=== PATIENT | male | born 1940 | race African-American/Black ===

== ENCOUNTER → 2016-11-16 | Outpatient (CLI) | payer OTHER ==
[~2016-11-16] MED LIST: ALBUAER2 INH; ASPI81TA28 PO; FURO40TA3 PO; LISI-729 PO; LORA10TA51 PO; METO-551 PO; NRV5 PO; POTA-335 PO; SIMV40TA2 PO; SYMIN160 INH; TERA1CAP63 PO; ZNTT/150 PO; [UNRECOGNIZED DRUG - OTHER] PO
--- NOTE | 2016-11-17 06:30 | PAP/PSG TECHNICIAN REPORT ---
[facility] Welding Robot Operator Polysomnogram Report Study name: None Report date: 11/17/2016 Study date: 11/16/2016 Referring Physician: Indy Duckworth M.D. Name: KAROLYN CASTANEDA Interpreting Physician: Alfredo Farley M.D. Date of : 1940 Welding Robot Operator: Javi Quiroz RPSGT. Sex: Male Age: 75 StudyType: PSG Weight: Height: 75 years, Height 5' 6" BMI: Medications: ALBUTEROL 90 MCG, AMLODIPINE 5 MG, FUROSEMIDE 40 MG, LISINOPRIL 5 MG, LORATADINE 10 MG, METOPROLOL TATRATE 50 MG, RANITIDINE HCL , SIMVASTATIN 40 MG, TERAZOSIN HCL 10 MG Patient History PATIENT HAS HISTORY OF EXCESSIVE DAYTIME SLEEPINESS, FATIGUE, LOW ENERGY AND SNORING. HE IS TO HAVE KNEE SURGERY DONE IN THE NEAR FUTURE BUT NEEDED TO HAVE A SLEEP STUDY DONE BEFOREHAND. ESS = 14 RM 8 Parameters Monitored NPSG: E1-M2, E2-M1, Fp1-M2, Fp2-M1, F3-M2, F4-M2, F4-M1, C3-M2, C4-M2, C4-M1, O1-M2, O2-M2, O2-M1, T3-M2, T4-M1, P3-M2, P4-M1, CHIN1, CHIN2, HR, EKG, Legs, PFLOW, SNOR, FLOW, CFLOW, Tidal Volume, THOR, ABDO, SpO2, PLTH, CPRESS, ETCO2 Wave, ETCO2, pH Sleep Architecture Sleep Stages Time at Lights Off 10:23:20 PM STAGES Time (min.) TST (%) Time at Lights On 5:01:20 AM Wake 223.5 -- Total Recording Time (TRT) 398.50 min. N1 9.0 5 Total Sleep Period (TSP) 211.0 min. N2 142.0 81 Total Sleep Time (TST) 174.5min. N3 0.0 0 Awake Time 224.0 min. REM 23.5 13 Wake after Sleep Onset 139.5 min. Sleep Efficiency (SE) 44 % Sleep Onset Latency (ABHISHEK) 84.0 min. Number of Stage 1 Shifts None Awakenings 8 Stage Changes 30 Number of REM periods 1 REM 23.5 13 REM Latency 187.5 min. NREM 151.0 87 Body Position Analysis Supine Right Left Side Prone Vertical Total Sleep Time (min.) 80.3 0.0 174.5 174.50 0.0 0.0 Total Sleep Time (%) 0% 0% 100% 100 0% N/A% Total Sleep Time REM (min.) 0.0 0.0 23.5 None 0.0 0.0 Total Sleep Time NREM (min.) 0.0 0.0 151.0 None 0.0 0.0 Intermittent Wake (min.) 80.3 0.0 143.2 None 0.0 0.0 Total Sleep Period (%) 0% None None None None None Arousals Myoclonus (PLM) * Events Count Index Events Count Index Spontaneous 20 7 Events Awake (PLMW) 74 19.9 Respiratory 2 1.0 Events Asleep w/ Arousal (PLMA) 0 0.0 PLM 0 0 Events Asleep w/o Arousal (PLMS) 6 2.1 Snoring 34 12 Total Asleep 6 2.1 Total 55 19 Total 80 12 Respiratory Analysis * CA OA MA CH H RERA Total Count 0 26 0 0 77 0 103 Index 0.0 8.9 0.0 0 26.5 0 35.4 Mean Duration 0.0 17.5 0.0 0.00 20.7 0.0 19.9 Longest Duration 0.0 22.6 0.0 0.00 0.0 0.0 44.4 Respiratory Event Summary Total Supine ~Supine Right Left Prone REM NREM Apneas Count 26 N/A 26 N/A 26 N/A 1 25 Index 8.9 N/A 9 N/A 8.9 N/A 3 10 Hypopneas (4% Desat) Count 77 N/A 77 N/A 77 N/A 17 60 Index 26.5 N/A 26 N/A 26.5 N/A 43.4 23.8 Apneas & All Hypopneas Count 103 N/A 103 N/A 103 N/A 18 85 Index 35.4 N/A 35 N/A 35 N/A 46.0 33.8 Respiratory Events (Major Assembly Lineman+All Hyp+RERA) Count 103 N/A 103 N/A 103 N/A 18 85 Index 35.4 N/A 35 N/A 35.4 N/A 46.0 33.8 Respiratory Related Arousal Count 2 N/A 3 N/A 3 N/A 0 3 Index 1.0 N/A 1 N/A 1 N/A 0 1 Snoring Analysis Supine Right Left Prone REM NREM Total Snore duration 14.4 min Snores count N/A N/A 587 N/A 139 448 587 Snore mean duration 1.5 Sec Snores index N/A N/A 202 N/A 354.9 178.0 201.8 TST with snoring (%) 8.2% Desaturation Event Summary: Minimum %SpO2 Event Count Mean/Min/Max Duration(sec.) Desaturation Index % Time In Bed > 90 108 26.3 / 4.3 / 62.5 17.1 96.3 86 - 90 3 17.8 / 13.8 / 20.8 14.4 3.2 81 - 85 1 10.3 / 10.3 / 10.3 32.3 0.5 76 - 80 0 N/A 0.0 0.0 71 - 75 0 N/A 0.0 0.0 66 - 70 0 N/A 0.0 0.0 61 - 65 0 N/A 0.0 0.0 56 - 60 0 N/A 0.0 0.0 51 - 55 0 N/A 0.0 0.0 < 50 0 N/A 0.0 0.0 Total REM NREM Awake <50% 0.0 min. 0.0 min. 0.0 min. 0.0 min. 51 - 60% 0.0 min. 0.0 min. 0.0 min. 0.0 min. 61 - 70% 0.2 min. 0.0 min. 0.0 min. 0.2 min. 71 - 80% 0.0 min. 0.0 min. 0.0 min. 0.0 min. 81 - 90% 14.3 min. 8.4 min. 3.9 min. 2.1 min. 91 - 100% 379.3 min. 15.1 min. 147.1 min. 217.1 min. Average 93 91 93 94 Minimum SpO2 67 83 84 67 Desaturation Event Index 16.4 46.0 25.8 7.0 # Desat. Events below 89% 26 15 5 6 Time(%) with Saturation below 89% 1.9 1.2 0.4 0.3 Time(min.) with Saturation below 89% 7.3 4.6 1.7 1.0 Time (mins) REM (mins) NREM (mins) % of TST SpO2 Below 90% 34 18 N16 5.0 SpO2 Below 88% 10 0 0 2 Heart Rate Analysis Min (bpm) Max (bpm) Average (bpm) Awake 30 250 71 NREM 40 86 62 REM 55 89 74 Overall 40 89 64 Supplemental O2 Values Minimum O2 level: None Value Start Time End Time Welding Robot Operator Comments Mr. Castaneda slept in the left and supine positions. PVC's and PAC's noted. Leg movements noted. No bruxism noted. Snoring was noted and scored as a 3 on a scale of 1 through 5. (0=no snoring, 5=snoring loud enough to be heard through a closed door or down the brock way) Mr. Castaneda awoke to use the restroom 3 times during the night. Mr. Castaneda stated I did not sleep as well as I do when I am in my own bed. The final report will be interpreted and signed by a sleep physician. The completed physician report will then be placed in the patient medical record. Therapy (cm H2O) 0 TIB (min.) 398.0 TST (min.) 174.5 Sleep Onset (min.) 84.0 REM Onset From Sleep (min.) 187.5 Sleep Efficiency % 44 Wakefulness (%) 56 Wakefulness (min.) 224.0 NREM 1 (%) 5 NREM 1 (min.) 9.0 NREM 2 (%) 81 NREM 2 (min.) 142.0 NREM 3 (%) 0 NREM 3 (min.) 0.0 REM (%) 13 REM (min.) 23.5 # Arousals 55 Arousal Index 19 # Snore 587 Snore Index 201.8 AHI 35.4 AHI Supine N/A AHI Non-Supine 35 NREM AHI 33.8 REM AHI 46.0 RDI 35.4 # Obstructive Apnea 26 # Central Apnea 0 # Mixed Apnea 0 # Hypopneas 77 RERAs 0 Total Respiratory Events 113 Time Below SpO2 89% (min.) 6.3 Mean NREM SpO2 (%) 93 Mean REM SpO2 (%) 91 Mean Sleep SpO2 (%) 93 Min NREM SpO2 (%) 84 Min REM SpO2 (%) 83 Position Supine (min.) 80.3 Position Non-supine (min.) 174.5 LM Index Sleep 2.1 LM Index NREM 2.4 LM Index REM 0.0 Mean Heart Rate (bpm) 64 Min Heart Rate (bpm) 40
--- NOTE | 2016-11-21 12:21 | Sleep Study ---
Sleep Study Report Date of Service: November 16, 2016 Sleep Study Report Clinical data: The patient is a 75-year-old male with an Rogers sleepiness score 14/24. He presents with excessive daytime sleepiness, fatigue, low energy , and snoring. He is scheduled for a total knee replacement at [facility] in [place]. His orthopedic surgeon requested a sleep study for evaluation of these symptoms prior to his knee surgery. Sleep architecture: Total sleep period was 211 minutes. Total sleep time was 174.5 minutes, divided between 151 minutes of non-REM sleep and 23.5 minutes of REM sleep. Sleep onset latency was prolonged 84 minutes. REM latency was delayed at 187.5 minutes. Sleep efficiency reduced significantly at 44 percent. Wake after sleep onset was elevated at 139.5 minutes. Sleep consisted of stage N1 5 percent, stage N2 81 percent, and REM 13 percent. Arousal data: 55 arousals were recorded for an index of 19 per hour. Thirty- four were due to snoring events. PLM data: 6 limb movements during sleep were noted for an index of 2.1 per hour with arousal index of 0. Respiratory data: Severe sleep apnea was documented. The AHI was 35.4. There were 26 obstructive apneic episodes. The longest apnea episode was 22.6 seconds. There were 77 hypopneas with a mean duration of 20.7 seconds. Oximetry data: Nocturnal hypoxemia was seen. Oxygen lana was 83 percent during REM. Mean saturation was 93 percent. Time below 88 percent was 10 minutes. EKG: Heart rates ranged from 40 to 89 beats per minute. PACs and PVCs were noted. Project Buyer's comments: The patient slept in the left and supine positions. Snoring was moderate, rated 3 on a scale 1 through 5. Impression: Severe sleep apnea/hypopnea with an AHI of 35.4 with nocturnal hypoxemia Recommendation: The patient may benefit from a repeat sleep study with CPAP, use of auto CPAP, or sleep medicine consultation. Clinical correlation is needed. Copies To 1: Indy Duckworth M.D.
--- NOTE | 2016-11-25 16:59 | CODING QUERY NO DIAGNOSIS ---
TREATMENT RENDERED WITHOUT A DIAGNOSIS : 1940 To promote full compliance with coding requirements relating to patient care, physician participation is requested in all cases of solar fabrication technician uncertainty. Please assist us with providing a diagnosis/symptom for the test(s) below: A diagnosis/symptom was not documented on your Order. A valid diagnosis/symptom is required to bill all insurances. Please remember that we are unable to code a diagnosis of rule out, probable, possible, questionable, or suspected. Tests that require a diagnosis: DOS: 11/16/16 * SLEEP STUDY DIAGNOSIS: Provider Signature: Date: Thank you Dana [facility] Health Information Management Once completed, please kindly fax back to [phone] For questions please call [phone]
== END | disposition home or self-care (01) ==
LOC: C.NEUR 21:00
PROVIDERS: ATTEND Family Medicine Adult Medicine
DX: G47.33 Obstructive sleep apnea (adult) (pediatric) (principal); Z01.818 Encounter for other preprocedural examination

== ENCOUNTER 2017-03-28 09:18 | Emergency (ER) | payer OTHER ==
[~2017-03-28] VITALS: Ht 165.1 cm; Wt 110.6 kg
[2017-03-28] MEDS ORDERED: SODIUM CHLORIDE 0.9% 500ML 500 ML IV STA (09:24)
[2017-03-28 09:29] VITALS: Ht 165.1 cm; Wt 110.6 kg
[2017-03-28] MEDS ORDERED: OPTIRAY 320 IV PRN (09:30)
[2017-03-28 09:57] LABS: URINE APPEARANCE CLEAR (CLEAR); URINE BILIRUBIN NEG (NEG); URINE COLOR YELLOW; URINE NITRITE NEG (NEG); UROBILINOGEN NEG (NEG)
[2017-03-28 10:00] LABS: BASO % 0.2 %; BASO ABS # 0.02 K/uL (0-0.2); COMPLETE YES; EOS % 0.7 %; HEMATOCRIT 46.1 % (42-52); IG% 0.2 %; LYMPH % 9.3 %; LYMPH ABS # 0.92 K/uL (1.2-3.4); MEAN CORPUSCULAR HEMOGLOBIN 28.7 pg (25-34); MEAN CORPUSCULAR HGB CONC 31.9 g/dl (32-36); MEAN PLATELET VOLUME 9.9 fL (7.4-10.4); MONO % 7.5 %; NEUT % 82.1 %; PLATELET COUNT 159 K/uL (130-400); RED BLOOD COUNT 5.12 M/uL (4.7-6.1); WHITE BLOOD COUNT 9.93 K/uL (4.8-10.8)
[2017-03-28 10:10] LABS: MANUAL MICROSCOPIC REQUIRED? YES; REVIEW REQ? NO
[2017-03-28 10:14] LABS: URINE BACTERIA NEG (NEG); URINE RBC 0-4 /hpf (0-4); ZZUR CULT IF INDIC CLEAN CATCH NO
[2017-03-28 10:16] LABS: CREATININE 0.92 mg/dl (0.60-1.40)
[2017-03-28 10:17] LABS: BUN/CREATININE RATIO 16.9 (10-20); CALCIUM 8.3 mg/dl (8.5-10.1); POTASSIUM 3.6 mmol/L (3.5-5.1)
--- NOTE | 2017-03-28 10:54 | DIAGNOSTIC IMAGING REPORT ---
SINGLE VIEW CHEST CLINICAL HISTORY: Wheezing. FINDINGS: An AP, portable, upright chest radiograph is compared to study dated 07/20/2015 and correlated with chest CT dated 07/21/2015. The examination is degraded by portable technique, large body habitus, and apical lordotic positioning. The cardiomediastinal heart is enlarged and there is atherosclerotic calcification of the thoracic aorta. The pulmonary vasculature is noncongested. There is mild bibasilar atelectasis. No airspace consolidation is seen typical for pneumonia and there is no large pleural effusion. No pneumothorax is seen. The skeletal structures are osteopenic. The bony thorax is grossly intact. IMPRESSION: Cardiomegaly with no acute cardiopulmonary abnormality. Electronically signed by: Ricky Nguyen M.D. 03/28/2017 10:53 AM Dictated Date/Time: 03/28/2017 10:51 AM
--- NOTE | 2017-03-28 10:56 | DIAGNOSTIC IMAGING REPORT ---
CT ABD/PELVIS IV CONTRAST ONLY CLINICAL HISTORY: Generalized abdominal pain with nausea and vomiting. COMPARISON STUDY: None. TECHNIQUE: Following the IV administration of 93 mL of Optiray-320, CT scan of the abdomen and pelvis was performed from the lung bases to the proximal femurs. Images are reviewed in the axial, sagittal, and coronal planes. IV contrast was administered without complication. A dose lowering technique was utilized adhering to the principles of ALARA. CT DOSE: 1198.70 mGycm FINDINGS: Lower chest: There are mild bibasal atelectatic changes. The heart is mildly enlarged. Liver: There are 4 hypodense hepatic lesions which approach water attenuation, and likely represent cysts. The largest measures 19 mm and is located within the left hepatic lobe. Gallbladder: Unremarkable. Spleen: Normal in size and attenuation. Pancreas: There is fatty atrophy the pancreas. No masses are visualized. Adrenal glands: There is bilateral adrenal gland thickening. Kidneys: There are multiple bilateral renal cysts. The largest on the left measures 6.7 cm. The largest the right measures 6.4 cm. There is a nonobstructing punctate lower pole left renal calculus. Bowel: There are no transition zones indicate bowel obstruction. By history the appendix is surgically absent. There is no acute diverticulitis. Scattered colonic diverticula are visualized. Peritoneum: There is no intraperitoneal free air or abdominal ascites. Vasculature: The abdominal aorta is normal in course and caliber. Adenopathy: None. Pelvic viscera: There are dense prostatic calcifications. Skeletal structures: There is bilateral L4 spondylolysis. No destructive lesions are visualized. There are multilevel degenerative changes within the spine. IMPRESSION: 1. No evidence of bowel obstruction. No evidence of free air 2. Surgically absent appendix 3. Diverticulosis. No evidence of acute diverticulitis 4. Bilateral renal cysts 5. Punctate nonobstructing lower pole left renal calculus 6. Multiple hypodense hepatic lesions, statistically representing cysts Electronically signed by: Elmo Kim M.D. 03/28/2017 10:55 AM Dictated Date/Time: 03/28/2017 10:50 AM
[2017-03-28] MEDS ORDERED: MELO7.5T5 PO (12:01)
[2017-03-28] MEDS ORDERED: TRAM-10 PO (12:01)
[2017-03-28] MEDS ORDERED: FUROSEMIDE INJ 20 MG in SYRINGE 0 ML IV STA (12:28)
[2017-03-28] MEDS ORDERED: FUROSEMIDE 40 MG/4 ML VIAL ONE (12:34)
[2017-03-28 13:02] VITALS: BP 121/77; PULSE 70; TEMP 36.5; O2SAT 95
--- NOTE | 2017-03-28 13:47 | EMERGENCY ROOM VISIT NOTE ---
History Report prepared by Demond: Leonora Bourgeois Under the Supervision of: Nolan ColungaO. First contact with patient: 09:18 Chief Complaint: NAUSEA Stated Complaint: NAUSEA/VOMITING History of Present Illness The patient is a 76 year old who presents to the Emergency Room with complaints of a persistent illness that began two hours prior to arrival. Per EMS the patient woke around 0700 with nausea, and weakness. They note that the patient vomited once. The patient complains of a dry mouth and feeling clammy. The patient's states that the patient began complaining of not feeling well when he woke this morning. Per the patients the patient just finished Cipro this past for a UTI. The patient denies headache, change in vision, dizziness, ear ache, sore throat, fevers, chest pain, shortness of breath, diarrhea, pain with urination, and melena. Denies any weakness or numbness in arms or legs. Adamantly denies any chest pain or shortness of breath. Source of History: patient, spouse/significant other (), EMS Onset: two hours prior to arrival Position: other (global) Quality: other (illness) Timing: other (persistent) Associated Symptoms: + nausea, + vomiting, + weakness Note: Associated symptoms: clammy and dry mouth Review of Systems See HPI for pertinent positives & negatives. A total of 10 systems reviewed and were otherwise negative. Past Medical & Surgical Medical Problems: (1) Asthma (2) CHF (congestive heart failure) (3) Hypertension Nos (4) Pure Hypercholesterolem Family History Noncontributory secondary to age Social History Smoking Status: Former Smoker Marital Status: Housing Status: lives with family Occupation Status: retired Current/Historical Medications Scheduled Amlodipine Besylate (Amlodipine Besylate), 5 MG PO QAM Aspirin (Aspirin Ec), 81 MG PO QAM Budesonide/Formoterol Fumarate (Symbicort 160/4.5 Inhaler ), 2 PUFFS INH BID Furosemide (Lasix), 40 MG PO QAM Lisinopril (Prinivil), 5 MG PO QAM Loratadine (Claritin), 10 MG PO QAM Meloxicam (Mobic), 0 PO QAM Metoprolol Tartrate (Lopressor), 25 MG PO BID Potassium Chloride (Micro-K Ext Rel), 20 MEQ PO QAM Ranitidine (Zantac), 150 MG PO DAILY Simvastatin (Zocor), 20 MG PO HS Terazosin Hcl (Hytrin), 10 MG PO HS Scheduled PRN Albuterol (Ventolin), 2 PUFFS INH Q6 PRN for RESCUE Tramadol (Ultram), 50 MG PO BID PRN for Pain Allergies Coded Allergies: Penicillins (Verified Allergy, Mild, 03/28/17) Sulfa Drugs (Verified Allergy, Mild, 03/28/17) Ubidecarenone (Unverified Adverse Reaction, Intermediate, BLOOD IN STOOL, 03/28/17) Physical Exam Vital Signs Date Time Temp Pulse Resp B/P (MAP) Pulse Ox O2 Delivery O2 Flow Rate FiO2 03/28/17 13:02 36.5 70 16 121/77 95 03/28/17 12:41 70 16 121/77 95 Room Air 03/28/17 11:24 77 18 145/80 96 03/28/17 10:56 89 18 147/87 95 Room Air 03/28/17 09:29 36.5 88 18 148/81 96 Room Air Physical Exam GENERAL: Sitting up in bed, alert, disheveled, chronically ill appearing, well nourished, no distress, non-toxic EYE EXAM: normal conjunctiva. PERRL and EOM's intact. OROPHARYNX: no exudate, no erythema, lips, buccal mucosa, and tongue normal and mucous membranes are moist NECK: supple, no nuchal rigidity, no adenopathy, non-tender, no JVD LUNGS: Faint wheezing bilaterally. Normal chest wall mechanics HEART: no murmurs, S1 normal and S2 normal ABDOMEN: abdomen soft, distended, non-tender, normo-active bowel sounds, no masses, no rebound or guarding. BACK: Back is symmetrical on inspection and there is no deformity, no midline tenderness, no CVA tenderness. SKIN: no rashes and no bruising UPPER EXTREMITIES: upper extremities are grossly normal. LOWER EXTREMITIES: No pitting edema. NEURO EXAM: Normal sensorium, cranial nerves II-XII intact, normal speech, no weakness of arms, no weakness of legs. No drift. Finger to nose intact. Gross sensation intact. Medical Decision & Procedures ER Provider Diagnostic Interpretation: Radiology results as stated below per my review and the radiologist's interpretation: SINGLE VIEW CHEST CLINICAL HISTORY: Wheezing. FINDINGS: An AP, portable, upright chest radiograph is compared to study dated 07/20/2015 and correlated with chest CT dated 07/21/2015. The examination is degraded by portable technique, large body habitus, and apical lordotic positioning. The cardiomediastinal heart is enlarged and there is atherosclerotic calcification of the thoracic aorta. The pulmonary vasculature is noncongested. There is mild bibasilar atelectasis. No airspace consolidation is seen typical for pneumonia and there is no large pleural effusion. No pneumothorax is seen. The skeletal structures are osteopenic. The bony thorax is grossly intact. IMPRESSION: Cardiomegaly with no acute cardiopulmonary abnormality. Electronically signed by: Ricky Nguyen M.D. 03/28/2017 10:53 AM Dictated Date/Time: 03/28/2017 10:[address] ABD/PELVIS IV CONTRAST ONLY CLINICAL HISTORY: Generalized abdominal pain with nausea and vomiting. COMPARISON STUDY: None. TECHNIQUE: Following the IV administration of 93 mL of Optiray-320, CT scan of the abdomen and pelvis was performed from the lung bases to the proximal femurs. Images are reviewed in the axial, sagittal, and coronal planes. IV contrast was administered without complication. A dose lowering technique was utilized adhering to the principles of ALARA. CT DOSE: 1198.70 mGycm FINDINGS: Lower chest: There are mild bibasal atelectatic changes. The heart is mildly enlarged. Liver: There are 4 hypodense hepatic lesions which approach water attenuation, and likely represent cysts. The largest measures 19 mm and is located within the left hepatic lobe. Gallbladder: Unremarkable. Spleen: Normal in size and attenuation. Pancreas: There is fatty atrophy the pancreas. No masses are visualized. Adrenal glands: There is bilateral adrenal gland thickening. Kidneys: There are multiple bilateral renal cysts. The largest on the left measures 6.7 cm. The largest the right measures 6.4 cm. There is a nonobstructing punctate lower pole left renal calculus. Bowel: There are no transition zones indicate bowel obstruction. By history the appendix is surgically absent. There is no acute diverticulitis. Scattered colonic diverticula are visualized. Peritoneum: There is no intraperitoneal free air or abdominal ascites. Vasculature: The abdominal aorta is normal in course and caliber. Adenopathy: None. Pelvic viscera: There are dense prostatic calcifications. Skeletal structures: There is bilateral L4 spondylolysis. No destructive lesions are visualized. There are multilevel degenerative changes within the spine. IMPRESSION: 1. No evidence of bowel obstruction. No evidence of free air 2. Surgically absent appendix 3. Diverticulosis. No evidence of acute diverticulitis 4. Bilateral renal cysts 5. Punctate nonobstructing lower pole left renal calculus 6. Multiple hypodense hepatic lesions, statistically representing cysts Electronically signed by: Elmo Kim M.D. 03/28/2017 10:55 AM Dictated Date/Time: 03/28/2017 10:50 AM Laboratory Results 03/28/17 09:45 Red Blood Count 5.12, Mean Corpuscular Volume 90.0, Mean Corpuscular Hemoglobin 28.7, Mean Corpuscular Hemoglobin Concent 31.9, Mean Platelet Volume 9.9, Neutrophils (%) (Auto) 82.1, Lymphocytes (%) (Auto) 9.3, Monocytes (%) (Auto) 7.5, Eosinophils (%) (Auto) 0.7, Basophils (%) (Auto) 0.2, Neutrophils # (Auto) 8.16, Lymphocytes # (Auto) 0.92, Monocytes # (Auto) 0.74, Eosinophils # (Auto) 0.07, Basophils # (Auto) 0.02 03/28/17 09:45 Test 03/28/17 09:45 03/28/17 09:47 03/28/17 11:51 White Blood Count 9.93 K/uL (4.8-10.8) Red Blood Count 5.12 M/uL (4.7-6.1) Hemoglobin 14.7 g/dL (14.0-18.0) Hematocrit 46.1 % (42-52) Mean Corpuscular Volume 90.0 fL (80-100) Mean Corpuscular Hemoglobin 28.7 pg (25-34) Mean Corpuscular Hemoglobin Concent 31.9 g/dl (32-36) Platelet Count 159 K/uL (130-400) Mean Platelet Volume 9.9 fL (7.4-10.4) Neutrophils (%) (Auto) 82.1 % Lymphocytes (%) (Auto) 9.3 % Monocytes (%) (Auto) 7.5 % Eosinophils (%) (Auto) 0.7 % Basophils (%) (Auto) 0.2 % Neutrophils # (Auto) 8.16 K/uL (1.4-6.5) Lymphocytes # (Auto) 0.92 K/uL (1.2-3.4) Monocytes # (Auto) 0.74 K/uL (0.11-0.59) Eosinophils # (Auto) 0.07 K/uL (0-0.5) Basophils # (Auto) 0.02 K/uL (0-0.2) RDW Standard Deviation 50.0 fL (36.4-46.3) RDW Coefficient of Variation 15.2 % (11.5-14.5) Immature Granulocyte % (Auto) 0.2 % Immature Granulocyte # (Auto) 0.02 K/uL (0.00-0.02) Anion Gap 9.0 mmol/L (3-11) Est Creatinine Clear Calc Drug Dose 75.9 ml/min Estimated GFR () 92.0 Estimated GFR (Non- 79.4 BUN/Creatinine Ratio 16.9 (10-20) Calcium Level 8.3 mg/dl (8.5-10.1) Total Bilirubin 0.6 mg/dl (0.2-1) Direct Bilirubin 0.2 mg/dl (0-0.2) Aspartate Amino Transf (AST/SGOT) 17 U/L (15-37) Alanine Aminotransferase (ALT/SGPT) 16 U/L (12-78) Alkaline Phosphatase 113 U/L (45-117) Total Protein 7.3 gm/dl (6.4-8.2) Albumin 3.2 gm/dl (3.4-5.0) Lipase 49 U/L (73-393) Urine Color YELLOW Urine Appearance CLEAR (CLEAR) Urine pH 8.0 (4.5-7.5) Urine Specific [place] 1.010 (1.000-1.030) Urine Protein NEG (NEG) Urine Glucose (UA) NEG (NEG) Urine Ketones NEG (NEG) Urine Occult Blood TRACE (NEG) Urine Nitrite NEG (NEG) Urine Bilirubin NEG (NEG) Urine Urobilinogen NEG (NEG) Urine Leukocyte Esterase SMALL (NEG) Urine RBC 0-4 /hpf (0-4) Urine WBC 5-10 /hpf (0-5) Urine Epithelial Cells 5-10 /lpf (0-5) Urine Calcium Oxalate Crystals PRESENT (NONE PRSENT) Urine Bacteria NEG (NEG) Troponin I 0.018 ng/ml (0-0.045) Laboratory results per my review. Medications Administered Medications (Trade) Dose Ordered Sig/Yung Route Start Time Stop Time Status Last Admin Dose Admin Sodium Chloride 500 ml @ 999 mls/hr Q31M STAT IV 03/28/17 09:24 03/28/17 09:54 DC 03/28/17 09:24 999 MLS/HR Furosemide (Lasix Inj) 40 mg STK-MED ONCE .ROUTE 03/28/17 12:34 03/28/17 12:35 DC 03/28/17 12:39 20 MG ECG Indication: nausea Rate (beats per minute): 79 Rhythm: sinus rhythm Findings: PVC, Q waves (Inferior), other (normal axis) ED Course ED COURSE: Vital signs were reviewed and showed normal vitals The patients medical record was reviewed The above diagnostic studies were performed and reviewed. ED treatments and interventions as stated above. 0918: The patient was evaluated in room A12B. A complete history and physical examination was performed. 0924: Ordered Sodium Chloride 500 ml @ 999mls/hr IV. 1124: I reevaluated the patient and he is feeling a little bit better. 1234: Ordered Lasix Inj 40 mg .route. 1235: Upon reevaluation, the patient is resting comfortably.I discussed my findings with the patient and he understands and agrees with the treatment plan. Based on the patients age, coexisting illnesses, exam and lab findings the decision to treat as an outpatient was made. The patient remained stable while under my care. The patient appeared well at the time of discharge. Medical Decision Differential diagnoses includes but is not limited to gastritis, peptic ulcer disease, GERD, gallbladder disease, pancreatitis, small bowel obstruction, acute coronary syndrome, pericarditis, ischemic bowel, irritable bowel disease, irritable bowel syndrome, appendicitis, diverticulitis, malignancy, hernia, urinary tract infection, torsion, perforation, trauma, infectious. Patient is a 76-year-old male who presents to ER for nausea associated with one episode of vomiting. Following this he felt shaky, sweaty and weak. CBC shows no significant leukocytosis or anemia. BMP all LFTs, bilirubin and lipase was unremarkable. Troponins were negative 2. Baseline troponin initially was 0.015. Repeat was 0.018. Patient repeatedly denies a chest pain or shortness of breath. EKG was unremarkable. I do favor these symptoms are likely related to his abdomen as he has an unsettled feeling in his abdomen which started following eating at banana which was extremely dark last night. Patient was updated at bedside. He was given a dose of Lasix prior to discharge as he did not take his home dose today and has pitting edema. Recommended increasing/ doubling dose of Lasix tomorrow for one dose and following up with PCP. Chest x -ray showed no signs of CHF. Discussed with Pt concerning signs and symptoms to watch out for. Pt was instructed to follow up with their PCP and discussed with the patient their option to return to the ED at anytime for persistent or worsening symptoms. The appropriate anticipatory guidance and out-patient management, including indications for return to the emergency department, were explained at length to the patient and understood. Medication Reconcilliation Current Medication List: was personally reviewed by me Blood Pressure Screening Patient's blood pressure: Normal blood pressure Blood pressure disposition: Did not require urgent referral Impression Primary Impression: Nausea & vomiting Scribe Attestation The scribe's documentation has been prepared under my direction and personally reviewed by me in its entirety. I confirm that the note above accurately reflects all work, treatment, procedures, and medical decision making performed by me. Departure Information Dispostion Home / Self-Care Referrals Indy Duckworth M.D. (PCP) Forms HOME CARE DOCUMENTATION FORM, IMPORTANT VISIT INFORMATION Patient Instructions ED Nausea Vomiting, My [facility] Additional Instructions Please follow up with your primary care doctor with in the next 24 hours. Any worsening of your symptoms, please return to the ED immediately. This includes any fevers greater than 100.4, worsening pain, chest pain, shortness breath, persistent nausea, vomiting, unable to eat or drink, or any other concerning signs or symptoms from your standpoint. Please take an extra dose of your Lasix tomorrow as you have slight swelling in her legs. Please follow up with your primary care doctor. Problem Qualifiers Primary Impression: Nausea & vomiting Vomiting type: unspecified Vomiting Intractability: unspecified Qualified Codes: R11.2 - Nausea with vomiting, unspecified
== END 2017-03-28 13:03 | disposition home or self-care (01) ==
LOC: EDBD 09:18 → C.EDA 09:19
DX: R11.2 Nausea with vomiting, unspecified (principal); I10 Essential (primary) hypertension; E78.00 Pure hypercholesterolemia, unspecified; I50.9 Heart failure, unspecified; J45.909 Unspecified asthma, uncomplicated; Z87.891 Personal history of nicotine dependence; Z79.82 Long term (current) use of aspirin; Z79.899 Other long term (current) drug therapy; Z88.0 Allergy status to penicillin; Z88.2 Allergy status to sulfonamides; Z88.8 Allergy status to other drugs, medicaments and biological substances

== ENCOUNTER 2017-06-12 13:42 | Emergency (ER) | payer OTHER ==
[~2017-06-12] VITALS: Ht 165.1 cm; Wt 106.0 kg
[~2017-06-12 13:42] MED LIST changes: +MELO7.5T5 PO; +TRAM-10 PO; -[UNRECOGNIZED DRUG - OTHER] PO
[2017-06-12 13:45] VITALS: BP 157/84; TEMP 36.8; Ht 165.1 cm; Wt 106.0 kg
--- NOTE | 2017-06-12 14:29 | EMERGENCY ROOM VISIT NOTE ---
ED Visit Note First contact with patient: 13:50 CHIEF COMPLAINT: Floaters in left eye HISTORY OF PRESENT ILLNESS: This 76-year-old male presents the ER with chief complaint of seeing to red floaters in his left eye. The patient denies any disruption of visual field, eye pain or trauma to the eye. The patient just saw his medical videographer May 19 and stated that time they gave him new Glasses and also told him that his pressure was slightly high in his right eye. The patient states that he called his doctor today and they told him to go to the [facility] for evaluation. They also told him not to drive he could not get someone to drive him to [place] so he came here. REVIEW OF SYSTEMS: 6 system review was performed and was negative unless stated otherwise in history of present illness. PMH: The patient is healthy; heart disease, hypertension, asthma kidney stones, SOCIAL HISTORY: Patient lives with his . The patient denies any tobacco or alcohol use. PHYSICAL EXAM: Vital Signs: Were reviewed Reviewed Nurse's notes. GENERAL: 68- year-old male appears in no acute distress. MENTAL Status: Alert and oriented 3. EYES: Visual acuity was 20/20 in the right eye and 20/50 in the left eye. The pupils are round, equal, and react to light. EOMs are full. No drainage noted from either eye. There is no foreign body visible under athe eyelid even after lid eversion. No foreign body was seen embedded in the cornea. The cornea was clear and no hyphema was seen. Pressure in right eye was 21.5 and pressure in left eye was 20.3. EMERGENCY DEPARTMENT COURSE: The patient was evaluated. The patient's case was discussed with Dr. Fernandes who agree with treatment plan. The patient was discharged home in stable condition. DIAGNOSIS: Floaters left eye DISCHARGE INSTRUCTIONS AND TREATMENT: Recommend seeing an mess attendant crew as soon as possible at the [place]. Problem List Medical Problems: (1) Asthma Status: Chronic (2) CHF (congestive heart failure) Status: Chronic Current/Historical Medications Scheduled Amlodipine Besylate (Amlodipine Besylate), 5 MG PO QAM Aspirin (Aspirin Ec), 81 MG PO QAM Budesonide/Formoterol Fumarate (Symbicort 160/4.5 Inhaler ), 2 PUFFS INH BID Furosemide (Lasix), 40 MG PO QAM Lisinopril (Prinivil), 5 MG PO QAM Loratadine (Claritin), 10 MG PO QAM Meloxicam (Mobic), 0 PO QAM Metoprolol Tartrate (Lopressor), 25 MG PO BID Potassium Chloride (Micro-K Ext Rel), 20 MEQ PO QAM Ranitidine (Zantac), 150 MG PO DAILY Simvastatin (Zocor), 20 MG PO HS Terazosin Hcl (Hytrin), 10 MG PO HS Scheduled PRN Albuterol (Ventolin), 2 PUFFS INH Q6 PRN for RESCUE Tramadol (Ultram), 50 MG PO BID PRN for Pain Allergies Coded Allergies: Penicillins (Verified Allergy, Mild, 03/28/17) Sulfa Drugs (Verified Allergy, Mild, 03/28/17) Ubidecarenone (Unverified Adverse Reaction, Intermediate, BLOOD IN STOOL, 03/28/17) Vital Signs Date Time Temp Pulse Resp B/P (MAP) Pulse Ox O2 Delivery O2 Flow Rate FiO2 06/12/17 13:45 36.8 69 18 157/84 96 Room Air Departure Information Referrals No Doctor, Assigned (PCP) Patient Instructions My [facility]
[2017-06-12 14:51] VITALS: PULSE 71; O2SAT 97
== END 2017-06-12 14:52 | disposition home or self-care (01) ==
LOC: C.EDB 13:43 → C.EDD 14:52
DX: H43.392 Other vitreous opacities, left eye (principal); I11.0 Hypertensive heart disease with heart failure; J45.909 Unspecified asthma, uncomplicated; I50.9 Heart failure, unspecified; Z87.442 Personal history of urinary calculi; Z79.82 Long term (current) use of aspirin; Z79.899 Other long term (current) drug therapy

== ENCOUNTER 2018-08-17 17:22 | Inpatient (IN) ==
[2018-08-17] MEDS ORDERED: FAMOTIDINE 20MG/5ML IV PUSH IV STA (17:58)
[2018-08-17] MEDS ORDERED: SODIUM CHLORIDE 0.9% 500 ML IV SCH (18:00)
--- NOTE | 2018-08-17 18:06 | XRay Report ---
XR chest 1V portable CLINICAL HISTORY: weakness dyspnea COMPARISON STUDY: 02/08/2018 FINDINGS: Moderate cardiomegaly. Mild prominence of pulmonary vasculature. Diaphragms are smooth. IMPRESSION: Cardia megaly. Pulmonary vascular congestion. The above report was generated using voice recognition software. It may contain grammatical, syntax or spelling errors. Electronically signed by: Mio Monets M.D. 08/17/2018 6:04 PM
--- NOTE | 2018-08-17 18:16 | Emergency Department Note ---
Entered by Narciso Egan acting as a scribe for History of Present Illness General Chief complaint: Referred by Doctor Stated complaint[facility] Time Seen by Provider: 08/17/18 17:45 Source: patient and family History of Present Illness Provider complaint: [facility] Onset (ago): hour(s) (This morning) Location: chest, abdomen, upper extremity, lower extremity, left and right Pain Consistency: + intermittent Quality: + sharp Relieved By: + none Exacerbated By: + none Associated symptoms: + weakness and + other (Abdominal pain); no fever/chills and no nausea/vomiting The patient is a 77 year old male who presents to the Emergency Room [facility] based on the labs that he had done this morning. His hemoglobin was 7.2 and hematocrit was 27.4. The patient originally went to get his blood work done so that the results were ready for an appointment he has with his oncologist in 10 days. He sees an oncologist because he currently has colon cancer, however he is not getting any radiation or chemotherapy presently. The patient states that lately he has been feeling weaker than normal and his arthritis in his knees has been bothering him more than usual. He also is experience an intermittent sharp shooting pain that starts in his abdomen and radiates inferiorly. Last week he also notes that his stool was a very dark green color, but since it has turned back to brown. He does not have any history of GI bleeds but he is on Xarelto. He denies any vomiting, fevers, or shortness of breath. Home Medications Home Medications Medication Instructions Recorded Confirmed Type loratadine 10 mg PO QAM 01/21/18 08/17/18 History ranitidine HCl 150 mg PO QAM 01/21/18 08/17/18 History simvastatin 20 mg PO DAILY 01/21/18 08/17/18 History terazosin 10 mg PO HS 01/21/18 08/17/18 History Spiriva with HandiHaler 18 mcg INHALATION QAM #1 inha 02/09/18 08/17/18 Rx Symbicort 2 puff INHALATION Q4H PRN #6 gm 02/09/18 08/17/18 Rx potassium chloride ER 20 mEq 20 meq PO BID 02/23/18 08/17/18 History tablet,extended release(part/cryst) rivaroxaban 20 mg tablet 20 mg PO QAM 02/23/18 08/17/18 History metoprolol tartrate 25 mg PO BID #60 tab 03/14/18 08/17/18 Rx furosemide [Lasix] 40 mg PO BID 08/17/18 08/17/18 History lisinopril 0 mg PO QAM 08/17/18 08/17/18 History Allergies Allergy/AdvReac Type Severity Reaction Status Date / Time Penicillins Allergy Mild Unknown Verified 08/17/18 17:50 Sulfa (Sulfonamide Allergy Mild Unknown Verified 08/17/18 17:50 Antibiotics) ubidecarenone AdvReac Intermediate BLOOD IN Verified 08/17/18 17:50 STOOL quetiapine AdvReac Mild Hallucinati Unverified 08/17/18 18:08 ons Past Med/Surg History Medical History Bilateral lower extremity edema ASCVD (arteriosclerotic cardiovascular disease) (Chronic) Pulmonary emboli (Acute) Acute blood loss anemia Obesity, morbid, BMI 40.0-49.9 BPH (benign prostatic hyperplasia) Hyperlipidemia GERD (gastroesophageal reflux disease) Cardiomyopathy Non-sustained ventricular tachycardia Ventricular tachycardia DVT prophylaxis Malignant neoplasm of left colon Status post low anterior resection with primary re-anastomosis on 01/30/[address] Addison Irregular heart rate Adenocarcinoid tumor Colitis Colonic mass COPD (chronic obstructive pulmonary disease) (Chronic) Ileus (Chronic) SOB (shortness of breath) (Acute) Vomiting (Acute) Abdominal pain, diffuse (Acute) Leukocytosis (Acute) Arthritis (Chronic) Hypertension (Chronic) Asthma (Chronic) CHF (congestive heart failure) (Chronic) Acute CHF (Chronic) COPD exacerbation (Chronic) Adenocarcinoma (Chronic) Surgical History Hx of colonoscopy (Chronic) History of surgical removal of left nipple (Chronic) History of appendectomy Hx of tonsillectomy Family History Other Benign essential HTN Heart disease Social History Preferred Language: Bulgarian Beliefs That Will Affect Care: None marital status: Current Living Situation: Spouse Feels Safe at Home: Yes Smoking Status: Never smoker Hx Alcohol Use: Yes (Quit) Hx Substance Use: No Review of Systems See HPI for pertinent positives & negatives. and A total of 10 systems reviewed and were otherwise negative Physical Exam Vital Signs Vital Signs - 24 hr 08/17/18 17:29 08/17/18 17:59 08/17/18 18:30 Temperature 36.6 C Temperature Source Oral Sepsis Recent Fever Within 48 Hours No Sepsis New/Unexplained Change in Mental Status No Sepsis Action Taken by Nursing No Action Required Pulse Rate 99 H 98 H Pulse Rate [Apical] 86 Pulse Rhythm Regular Pulse Rhythm [Apical] Regular Pulse Strength [Apical] Normal Respiratory Rate 20 20 25 H Respiratory Effort / Characteristics Non-Labored Non-Labored Spontaneous Respiratory Depth Normal Normal Respiratory Pattern Regular Blood Pressure 121/56 L Blood Pressure [Right Arm] 110/66 Blood Pressure Mean 77 Blood Pressure Mean [Right Arm] 80 Blood Pressure Position [Right Arm] Lying Pulse Oximetry 100 100 99 Oxygen Delivery Method Room Air Room Air 08/17/18 18:51 08/17/18 20:21 Temperature Temperature Source Sepsis Recent Fever Within 48 Hours Sepsis New/Unexplained Change in Mental Status Sepsis Action Taken by Nursing Pulse Rate Pulse Rate [Apical] 90 93 H Pulse Rhythm Pulse Rhythm [Apical] Pulse Strength [Apical] Respiratory Rate 18 18 Respiratory Effort / Characteristics Respiratory Depth Respiratory Pattern Blood Pressure Blood Pressure [Right Arm] 115/68 123/90 Blood Pressure Mean Blood Pressure Mean [Right Arm] 83 101 Blood Pressure Position [Right Arm] Pulse Oximetry 99 99 Oxygen Delivery Method Room Air Room Air GENERAL: Patient is in no acute distress. HEENT: No acute trauma, normocephalic atraumatic, mucous membranes moist, no nasal congestion, no scleral icterus. NECK: No stridor, no adenopathy, no meningismus, trachea is midline. LUNGS: Clear to auscultation bilaterally, no wheeze, no rhonchi, breath sounds equal. HEART: Irregular rhythm with normal rate, 2/6 systolic murmur ABDOMEN: Soft, nontender, bowel sounds positive, no hernias, no peritonitis. RECTAL: Dark stool, heme positive. EXTREMITIES: No cyanosis, mild bilateral pedal edema, full range of motion of all the joints without pain or difficulty, no signs for acute trauma. NEUROLOGIC: Oriented x 3, no acute motor or sensory deficits, no focal weakness. SKIN: No rash, no jaundice, no diaphoresis. Course 1746: The patient was evaluated in room B03, and a complete history and physical examination were performed. 1900: I reevaluated the patient and he is stable. I also updated him on results and the treatment plan. Both him and his agree. 1905: I spoke to Dr. Luiz Kelly [facility] Hospitalist about the patient's case and she is going to accept him for further evaluation. Consultations Consultation #1: I spoke to Dr. Luiz Kelly [facility] Hospitalist about the patient's case and she is going to accept him for further evaluation. Time: 19:06 Administered Medications Discontinued Medications Famotidine (Pepcid 20mg Iv Push) 20 mg IV ONE STA Stop: 08/17/18 17:59 Last Admin: 08/17/18 18:17 Dose: 20 mg Documented by: [id number] Famotidine (Pepcid 20mg Iv Push) Confirm Administered Dose 20 mg .ROUTE .STK-MED ONE Stop: 08/17/18 20:46 Last Admin: 08/17/18 20:52 Dose: Not Given Documented by: [id number] Sodium Chloride (Nss) 500 mls @ 999 mls/hr IV .Q31M MARINE Stop: 08/17/18 18:30 Last Infusion: 08/17/18 18:52 Dose: 0 mls/hr Documented by: [id number] Admin: 08/17/18 18:17 Dose: 999 mls/hr Documented by: [id number] Medical Decision Making Differential Diagnosis Differential Diagnosis: GI bleed, Gastritis, Ulcer, Colonic bleeding, Anemia, Electrolyte imbalance, and coagulopathy, amongst others. Medical Records Attestation: I reviewed the patient's medical records. Home Medications Current Medication List: was personally reviewed by me Laboratory Data Attestation: I reviewed the patient's lab results. Result diagrams: 08/17/18 18:18 08/17/18 18:18 Lab Results 08/17/18 08/17/18 08/17/18 Range/Units 18:17 18:18 18:18 WBC 7.21 (4.8-10.8) K/uL RBC 4.28 L (4.7-6.1) M/uL Hgb 7.6 L (14.0-18.0) g/dL Hct 27.9 L (42-52) % MCV 65.2 L (80-100) fL MCH 17.8 L (25-34) pg MCHC 27.2 L (32-36) g/dL RDW Std Deviation 43.5 (36.4-46.3) fL RDW Coeff of Juan 18.4 H (11.5-14.5) % Plt Count 251 (130-400) K/uL MPV 10.0 (7.4-10.4) fL Immature Gran % (Auto) 0.3 % Neut % (Auto) 66.0 % Lymph % (Auto) 20.1 % Callaway % (Auto) 11.8 % Eos % (Auto) 1.5 % Baso % (Auto) 0.3 % Immature Gran # (Auto) 0.02 (0.00-0.02) K/uL Neut # (Auto) 4.76 (1.4-6.5) K/uL Lymph # (Auto) 1.45 (1.2-3.4) K/uL Callaway # (Auto) 0.85 H (0.11-0.59) K/uL Eos # (Auto) 0.11 (0-0.5) K/uL Baso # (Auto) 0.02 (0-0.2) K/uL Hypochromasia Present Ovalocytes 1+ PT 12.6 H (9.0-12.0) Seconds INR 1.2 H (0.9-1.1) APTT 27.6 (21.0-31.0) Seconds PTT Ratio 1.0 Sodium (136-145) mmol/L Potassium (3.5-5.1) mmol/L Chloride (98-107) mmol/L Carbon Dioxide (21-32) mmol/L Anion Gap (3-11) BUN (7-18) mg/dl Creatinine (0.6-1.4) mg/dl Est Cr Clr Drug Dosing Est GFR ( Amer) Est GFR (Non-Af Amer) BUN/Creatinine Ratio (10-20) Glucose (70-99) mg/dl Calcium (8.5-10.1) mg/dl Magnesium (1.8-2.4) mg/dl Total Bilirubin (0.2-1) mg/dl AST (15-37) U/L ALT (12-78) U/L Alkaline Phosphatase (45-117) U/L Troponin I (0-0.045) ng/ml Total Protein (6.4-8.2) gm/dl Albumin (3.4-5.0) gm/dl Globulin (2.5-4.0) gm/dl Albumin/Globulin Ratio (0.9-2) Blood Type A Positive Antibody Screen NEGATIVE 08/17/18 Range/Units 18:18 WBC (4.8-10.8) K/uL RBC (4.7-6.1) M/uL Hgb (14.0-18.0) g/dL Hct (42-52) % MCV (80-100) fL MCH (25-34) pg MCHC (32-36) g/dL RDW Std Deviation (36.4-46.3) fL RDW Coeff of Juan (11.5-14.5) % Plt Count (130-400) K/uL MPV (7.4-10.4) fL Immature Gran % (Auto) % Neut % (Auto) % Lymph % (Auto) % Call[place] % (Auto) % Eos % (Auto) % Baso % (Auto) % Immature Gran # (Auto) (0.00-0.02) K/uL Neut # (Auto) (1.4-6.5) K/uL Lymph # (Auto) (1.2-3.4) K/uL Callaway # (Auto) (0.11-0.59) K/uL Eos # (Auto) (0-0.5) K/uL Baso # (Auto) (0-0.2) K/uL Hypochromasia Ovalocytes PT (9.0-12.0) Seconds INR (0.9-1.1) APTT (21.0-31.0) Seconds PTT Ratio Sodium 139 (136-145) mmol/L Potassium 3.7 (3.5-5.1) mmol/L Chloride 106 (98-107) mmol/L Carbon Dioxide 27 (21-32) mmol/L Anion Gap 6.0 (3-11) BUN 18 (7-18) mg/dl Creatinine 0.95 (0.6-1.4) mg/dl Est Cr Clr Drug Dosing Not Reportable Est GFR ( Amer) 87.9 Est GFR (Non-Af Amer) 75.8 BUN/Creatinine Ratio 18.5 (10-20) Glucose 115 H (70-99) mg/dl Calcium 8.9 (8.5-10.1) mg/dl Magnesium 2.6 H (1.8-2.4) mg/dl Total Bilirubin 0.3 (0.2-1) mg/dl AST 10 L (15-37) U/L ALT 12 (12-78) U/L Alkaline Phosphatase 116 (45-117) U/L Troponin I < 0.015 (0-0.045) ng/ml Total Protein 7.8 (6.4-8.2) gm/dl Albumin 3.4 (3.4-5.0) gm/dl Globulin 4.4 H (2.5-4.0) gm/dl Albumin/Globulin Ratio 0.8 L (0.9-2) Blood Type Antibody Screen Imaging Data Radiologist's Impression: Radiology results as stated below per my review and the radiologist's interpretation: XR chest 1V portable CLINICAL HISTORY: weakness dyspnea COMPARISON STUDY: 02/08/2018 FINDINGS: Moderate cardiomegaly. Mild prominence of pulmonary vasculature. Diaphragms are smooth. IMPRESSION: Cardiomegaly. Pulmonary vascular congestion. The above report was generated using voice recognition software. It may contain grammatical, syntax or spelling errors. Electronically signed by: Mio Montes M.D. 08/17/2018 6:04 PM ECG Data Attestation: I personally reviewed and interpreted this ECG as follows: Indication: other (GI bleed) Rate (beats per minute): 92 Rhythm: sinus rhythm Findings: + PVC; no ST elevation Blood Pressure Blood Pressure Findings: Normal blood pressure MDM Narrative There is no leukocytosis. Hemoglobin is low at 7.6, this is consistent with the value obtained as an outpatient. Platelet count was normal. INR was mildly elevated at 1.2, this is consistent with his Xarelto use. No significant electrolyte abnormality or kidney failure. No evidence for hepatitis. Blood type is pending. Chest film did not show pneumonia or CHF. EKG showed a sinus rhythm, no acute ischemia. Cardiac enzyme testing x1 is not consistent with acute cardiac injury. Rectal exam was performed, the stool was dark and heme positive. The patient received IV Pepcid, he was given IV saline. The patient will require a hospital stay. He is anemic with a GI bleed and is on Xarelto. Currently, he is stable and I do not think he requires an emergent blood transfusion but may require blood during his hospital stay. I spoke to the patient and case management. The on-call hospitalist was consulted. Impression & Plan GI bleed, Anemia, Coagulopathy Discharge Plan Visit Data Chief Complaint: Referred by Doctor Stated [facility] Provider: Ricky Vogt Discharge Problem: GI bleed, Anemia, Coagulopathy Patient Disposition: Being Evaluated by Hospitalist Discharge Instructions Interventions: ED Discharge Assessment Last Done: 08/17/18 21:05 Discharge Problem: GI bleed Qualifiers: GI bleed type/associated pathology: unspecified gastrointestinal hemorrhage type Qualified Code(s): K92.2 - Gastrointestinal hemorrhage, unspecified Anemia Qualifiers: Anemia type: unspecified type Qualified Code(s): D64.9 - Anemia, unspecified The scribe's documentation has been prepared under my direction and personally reviewed by me in its entirety. I confirm that the note above accurately reflects all work, treatment, procedures, and medical decision making performed by me.
[2018-08-17 18:39] LABS: INR 1.2 (0.9-1.1); Partial Thromboplastin Time 27.6 Seconds (21.0-31.0); Prothrombin Time 12.6 Seconds (9.0-12.0)
[2018-08-17 18:46] LABS: Alanine Aminotransferase 12 U/L (12-78); Albumin Level 3.4 gm/dl (3.4-5.0); Aspartate Aminotransferase 10 U/L (15-37); BUN Creatinine Ratio 18.5 (10-20); Blood Urea Nitrogen 18 mg/dl (7-18); Calcium 8.9 mg/dl (8.5-10.1); Carbon Dioxide 27 mmol/L (21-32); Chloride 106 mmol/L (98-107); Est GFR (African American) 87.9; Est GFR (Non-African American) 75.8; Glucose 115 mg/dl (70-99); Magnesium 2.6 mg/dl (1.8-2.4); Potassium 3.7 mmol/L (3.5-5.1); Sodium 139 mmol/L (136-145)
[2018-08-17 18:51] LABS: Albumin Globulin Ratio 0.8 (0.9-2); Alkaline Phosphatase 116 U/L (45-117); Bilirubin,Total 0.3 mg/dl (0.2-1); Globulin 4.4 gm/dl (2.5-4.0); Total Protein 7.8 gm/dl (6.4-8.2); Troponin I < 0.015 ng/ml (0-0.045)
[2018-08-17 18:53] LABS: Hematocrit (blood only) 27.9 % (42-52); Hemoglobin 7.6 g/dL (14.0-18.0); Mean Corpuscular Hgb Conc 27.2 g/dL (32-36); Mean Corpuscular Volume 65.2 fL (80-100); Platelet Count 251 K/uL (130-400); RDW Coefficient of Variation 18.4 % (11.5-14.5); RDW Standard Deviation 43.5 fL (36.4-46.3); Red Blood Count 4.28 M/uL (4.7-6.1); White Blood Count 7.21 K/uL (4.8-10.8)
[2018-08-17 19:01] LABS: Basophils # (auto) 0.02 K/uL (0-0.2); Basophils % (auto) 0.3 %; Eosinophils # (auto) 0.11 K/uL (0-0.5); Eosinophils % (auto) 1.5 %; Hypochromasia Present; Immature Granulocytes # (auto) 0.02 K/uL (0.00-0.02); Immature Granulocytes % (auto) 0.3 %; Lymphocytes # (auto) 1.45 K/uL (1.2-3.4); Lymphocytes % (auto) 20.1 %; Monocytes # (auto) 0.85 K/uL (0.11-0.59); Monocytes % (auto) 11.8 %; Neutrophils # (auto) 4.76 K/uL (1.4-6.5); Ovalocytes 1+
--- NOTE | 2018-08-17 20:08 | History & Physical Report ---
Date of Service August 17, 2018 Assessment & Plan (1) GI bleed: 77 yo male was admitted on 17 August 2018 for suspected GI bleed. GI bleed, anemia: Patient complains of progressive fatigue over the past month. No known direct melanotic or hematochezic stools. Heme positive in ED. See discussion of his colon cancer below. No reported hematemesis. Admit hemoglobin 7.6 at 1818 this evening (comparisons around 11). Borderline tachycardic initially, normal BP. INR 1.2. Negative troponin. EKG was normal sinus rhythm, rate 92, occasional PVCs. pCXR noted cardiomegaly and pulmonary vascular congestion. - In ED, treated with pepcid (due to shortage of protonix). - Will keep on Pepcid 20 mg IV BID for now. - Held off on immediate transfusion. Will recheck in AM. Will check iron studies now as well. T&S as a precaution. - Placed consults to general surgery and gastroenterology. Malignant neoplasm of left colon, diverticulosis: S/p low anterior resection with primary re-anastomosis [place] [address] Addison. Ongoing medical issues: - Pulmonary emboli: Per patient, diagnosed with this in early 2018. Has been on xarelto. Held for now. - Hypertension, hyperlipidemia, CAD, cardiomyopathy: On home simvastatin and terazosin. Not clear if he takes lisinopril regularly. --- Held his home metoprolol in case it will mask an acute bleed as inpatient. - GERD: On home loratadine, ranitidine. - COPD: On home symbicort and Spiriva. - CHF: Per previous discharge summary in Mar 2018, echo noted EF of 45-50%, grade 1 diastolic dysfunction. On home Lasix 40 mg BID and potassium. - Arthritis: Primarily in his bilateral knees. - Morbid obesity. Code status: Full code. Diet: N.p.o. DVT prophy: Held chemical prophy due to concerns for GI bleed. SCDs. PT/OT: Ordered. Disbo: Admit to PCU telemetry. Patient says he does not want to return to [facility] if that became a possibility. (2) Anemia: (3) Malignant neoplasm of left colon: (4) Pulmonary emboli: (5) Hypertension: (6) Hyperlipidemia: (7) Coronary artery disease: (8) Cardiomyopathy: (9) GERD (gastroesophageal reflux disease): (10) COPD (chronic obstructive pulmonary disease): (11) CHF (congestive heart failure): (12) Arthritis: (13) Insomnia: (14) Obesity, morbid, BMI 40.0-49.9: History of Present Illness Primary Care Provider: Alfredo Clark 77-year-old male was referred from the [place] based on low hemoglobin levels (7.2). Patient notes the following ongoing issues: - Says that he felt generalized weakness progressively over the past month. He denies any vomiting or diarrhea, any black or bloody stools, but says that sometimes the stool is green. - Regarding getting the above labs, he says that he has been seeing an oncologist regularly ever since his diagnosis of colon cancer this past fall 2017. Since last visit was about 3 months ago and that there were no particular changes to his treatment plan. He denies ever being on chemotherapy or having radiation. He does say that he is lost about 60 pounds since his surgery in January 2018. - Says that he has been on Xarelto since the diagnosis of his pulmonary embolism roughly around May or June of this year. - Says that he gets occasional shooting pains that began in his abdomen and chew down both of his legs, lasting for perhaps a second or so. - Says that he gets occasional right flank pain that he thinks might be a kidney stone, though he does not recall ever having kidney stone. He says he does not have this pain right now. - Says that he gets some left-sided "lung pain" within his chest only when he reaches forward for something. He is not sure when this started. He denies any baseline chest pain or shortness of breath. - Says that he gets bilateral leg cramps at night. Past medical history includes hypertension, hyperlipidemia, CAD, cardiomyopathy, COPD, congestive heart failure, GERD, arthritis, morbid obesity, colon cancer. Past surgical history includes low anterior resection with primary re- anastomosis of colon cancer January 2018, tonsillectomy/adenoidectomy, appendectomy. Social history includes history of 15 pack year smoking quitting smoking about 40 years ago, denies alcohol use. Lives at home with his . Allergies Allergy/AdvReac Type Severity Reaction Status Date / Time Penicillins Allergy Mild Unknown Verified 08/17/18 17:50 Sulfa (Sulfonamide Allergy Mild Unknown Verified 08/17/18 17:50 Antibiotics) ubidecarenone AdvReac Intermediate BLOOD IN Verified 08/17/18 17:50 STOOL quetiapine AdvReac Mild Hallucinati Unverified 08/17/18 18:08 ons Home Medications Home Medications Medication Instructions Recorded Confirmed Type loratadine 10 mg PO QAM 01/21/18 08/17/18 History ranitidine HCl 150 mg PO QAM 01/21/18 08/17/18 History simvastatin 20 mg PO DAILY 01/21/18 08/17/18 History terazosin 10 mg PO HS 01/21/18 08/17/18 History Spiriva with HandiHaler 18 mcg INHALATION QAM #1 inha 02/09/18 08/17/18 Rx Symbicort 2 puff INHALATION Q4H PRN #6 gm 02/09/18 08/17/18 Rx potassium chloride ER 20 mEq 20 meq PO BID 02/23/18 08/17/18 History tablet,extended release(part/cryst) rivaroxaban 20 mg tablet 20 mg PO QAM 02/23/18 08/17/18 History metoprolol tartrate 25 mg PO BID #60 tab 03/14/18 08/17/18 Rx furosemide [Lasix] 40 mg PO BID 08/17/18 08/17/18 History lisinopril 0 mg PO QAM 08/17/18 08/17/18 History Past Med/Surg History Medical History Bilateral lower extremity edema ASCVD (arteriosclerotic cardiovascular disease) (Chronic) Pulmonary emboli (Acute) Acute blood loss anemia Obesity, morbid, BMI 40.0-49.9 BPH (benign prostatic hyperplasia) Hyperlipidemia GERD (gastroesophageal reflux disease) Cardiomyopathy Non-sustained ventricular tachycardia Ventricular tachycardia DVT prophylaxis Malignant neoplasm of left colon Status post low anterior resection with primary re-anastomosis on 01/30/[address] Addison Irregular heart rate Adenocarcinoid tumor Colitis Colonic mass COPD (chronic obstructive pulmonary disease) (Chronic) Ileus (Chronic) SOB (shortness of breath) (Acute) Vomiting (Acute) Abdominal pain, diffuse (Acute) Leukocytosis (Acute) Arthritis (Chronic) Hypertension (Chronic) Asthma (Chronic) CHF (congestive heart failure) (Chronic) Acute CHF (Chronic) COPD exacerbation (Chronic) Adenocarcinoma (Chronic) Surgical History Hx of colonoscopy (Chronic) History of surgical removal of left nipple (Chronic) History of appendectomy Hx of tonsillectomy Family History Other Benign essential HTN Heart disease Social History Preferred Language: Georgian Communication Ability: Effective Beliefs That Will Affect Care: None marital status: Current Living Situation: Spouse Other Information That Helps Us Care for You: No Feels Safe at Home: Yes Safety Concerns: Feels Safe At This Time Smoking Status: Former smoker Hx Alcohol Use: No Hx Substance Use: No Review of Systems Constitutional: Denies fevers, chills, focal weakness Eyes: Denies any visual loss or diplopia ENT: Denies any ear/nose/throat pain or difficulty speaking or swallowing Respiratory: Denies any dyspnea, cough, hemoptysis Cardiovascular: Denies any chest pain. Gastrointestinal: Denies any abdominal pain, nausea/vomiting/diarrhea Musculoskeletal: Denies any acute extremity pains, myalgias, or focal weakness Skin: Denies any known acute rashes or lesions Neuro: Denies any headache, acute focal weakness or numbness, or difficulties with speech or swallow. Physical Exam Vital Signs (Past 24 Hours): Last Vital Signs Temp 36.6 C 08/17/18 17:29 Pulse 90 08/17/18 18:51 Resp 18 08/17/18 18:51 BP 115/68 08/17/18 18:51 Pulse Ox 99 08/17/18 18:51 Physical Exam: GENERAL: Awake, alert, well-appearing, in no acute distress HENT: Normocephalic, atraumatic. Oropharynx unremarkable. EYES: Normal conjunctiva. Sclera non-icteric. NECK: Inspection normal. Non-tender. Supple and full ROM. No nuchal rigidity. CARDIAC: +S1S2 RRR with some PVCs, 2/6 systolic murmurs. RESPIRATORY: Clear to auscultation. No wheezes or rales. Normal respiratory effort. GI: +BS, soft, non-distended but large abdomen at baseline. No tenderness to palpation. No rebound or guarding. No appreciable masses. [Per ED note, heme positive stool.] EXTREMITIES: No calf tenderness. +1 bilateral pretibial edema. NEURO: Decreased sensation over bilateral lower extremities from the knees distally. Results & Data Laboratory Results 08/17/18 08/17/18 08/17/18 Range/Units 18:18 18:18 18:18 WBC 7.21 (4.8-10.8) K/uL RBC 4.28 L (4.7-6.1) M/uL Hgb 7.6 L (14.0-18.0) g/dL Hct 27.9 L (42-52) % MCV 65.2 L (80-100) fL MCH 17.8 L (25-34) pg MCHC 27.2 L (32-36) g/dL RDW Std Deviation 43.5 (36.4-46.3) fL RDW Coeff of Juan 18.4 H (11.5-14.5) % Plt Count 251 (130-400) K/uL MPV 10.0 (7.4-10.4) fL Immature Gran % (Auto) 0.3 % Neut % (Auto) 66.0 % Lymph % (Auto) 20.1 % [place] % (Auto) 11.8 % Eos % (Auto) 1.5 % Baso % (Auto) 0.3 % Immature Gran # (Auto) 0.02 (0.00-0.02) K/uL Neut # (Auto) 4.76 (1.4-6.5) K/uL Lymph # (Auto) 1.45 (1.2-3.4) K/uL [place] # (Auto) 0.85 H (0.11-0.59) K/uL Eos # (Auto) 0.11 (0-0.5) K/uL Baso # (Auto) 0.02 (0-0.2) K/uL Hypochromasia Present Ovalocytes 1+ PT 12.6 H (9.0-12.0) Seconds INR 1.2 H (0.9-1.1) APTT 27.6 (21.0-31.0) Seconds PTT Ratio 1.0 Sodium 139 (136-145) mmol/L Potassium 3.7 (3.5-5.1) mmol/L Chloride 106 (98-107) mmol/L Carbon Dioxide 27 (21-32) mmol/L Anion Gap 6.0 (3-11) BUN 18 (7-18) mg/dl Creatinine 0.95 (0.6-1.4) mg/dl Est Cr Clr Drug Dosing Not Reportable Est GFR ( Amer) 87.9 Est GFR (Non-Af Amer) 75.8 BUN/Creatinine Ratio 18.5 (10-20) Glucose 115 H (70-99) mg/dl Calcium 8.9 (8.5-10.1) mg/dl Magnesium 2.6 H (1.8-2.4) mg/dl Total Bilirubin 0.3 (0.2-1) mg/dl AST 10 L (15-37) U/L ALT 12 (12-78) U/L Alkaline Phosphatase 116 (45-117) U/L Troponin I < 0.015 (0-0.045) ng/ml Total Protein 7.8 (6.4-8.2) gm/dl Albumin 3.4 (3.4-5.0) gm/dl Globulin 4.4 H (2.5-4.0) gm/dl Albumin/Globulin Ratio 0.8 L (0.9-2) Blood Type Antibody Screen 08/17/18 Range/Units 18:17 WBC (4.8-10.8) K/uL RBC (4.7-6.1) M/uL Hgb (14.0-18.0) g/dL Hct (42-52) % MCV (80-100) fL MCH (25-34) pg MCHC (32-36) g/dL RDW Std Deviation (36.4-46.3) fL RDW Coeff of Juan (11.5-14.5) % Plt Count (130-400) K/uL MPV (7.4-10.4) fL Immature Gran % (Auto) % Neut % (Auto) % Lymph % (Auto) % [place] % (Auto) % Eos % (Auto) % Baso % (Auto) % Immature Gran # (Auto) (0.00-0.02) K/uL Neut # (Auto) (1.4-6.5) K/uL Lymph # (Auto) (1.2-3.4) K/uL [place] # (Auto) (0.11-0.59) K/uL Eos # (Auto) (0-0.5) K/uL Baso # (Auto) (0-0.2) K/uL Hypochromasia Ovalocytes PT (9.0-12.0) Seconds INR (0.9-1.1) APTT (21.0-31.0) Seconds PTT Ratio Sodium (136-145) mmol/L Potassium (3.5-5.1) mmol/L Chloride (98-107) mmol/L Carbon Dioxide (21-32) mmol/L Anion Gap (3-11) BUN (7-18) mg/dl Creatinine (0.6-1.4) mg/dl Est Cr Clr Drug Dosing Est GFR ( Amer) Est GFR (Non-Af Amer) BUN/Creatinine Ratio (10-20) Glucose (70-99) mg/dl Calcium (8.5-10.1) mg/dl Magnesium (1.8-2.4) mg/dl Total Bilirubin (0.2-1) mg/dl AST (15-37) U/L ALT (12-78) U/L Alkaline Phosphatase (45-117) U/L Troponin I (0-0.045) ng/ml Total Protein (6.4-8.2) gm/dl Albumin (3.4-5.0) gm/dl Globulin (2.5-4.0) gm/dl Albumin/Globulin Ratio (0.9-2) Blood Type A Positive Antibody Screen NEGATIVE Medications Administered Discontinued Medications Famotidine (Pepcid 20mg Iv Push) 20 mg IV ONE STA Stop: 08/17/18 17:59 Last Admin: 08/17/18 18:17 Dose: 20 mg Documented by: [id number] Sodium Chloride (Nss) 500 mls @ 999 mls/hr IV .[id number] MARINE Stop: 08/17/18 18:30 Last Infusion: 08/17/18 18:52 Dose: 0 mls/hr Documented by: [id number] Admin: 08/17/18 18:17 Dose: 999 mls/hr Documented by: [id number] Code Status & VTE Plan Code Status Full code VTE Prophylaxis Plan VTE Prophylaxis will be ordered: Yes Supervising Physician Co-Signing Physician Notes Patient seen and examined, chart reviewed, case discussed with Dr. Daley and I agree with this assessment and plan as documented above. Briefly patient is a 77-year-old male with history of PE on Xarelto, malignant neoplasm of left colon status post low anterior resection with reanastomosis in January 2018 presenting with anemia. She had routine labs performed and was found to have a hemoglobin of 7.2. He is complaining of weakness and fatigue. Denies chest pain, palpitations, shortness of breath, dizziness. He denies overt presence of melena, hematochezia, nausea. Denies hematuria, easy bleeding or bruising. Upon arrival to the ER patient is hemodynamically stable in no acute distress. Found to have heme positive stools On physical exam he is afebrile, hemodynamically stable, no acute distress Skin: Intact, no rashes or lesions H EENT: Normocephalic atraumatic, pupils equal and reactive to light, conjunctival pallor, moist mucous membranes, neck supple Heart: +S1/S2, regular, no M/R/G Lungs: CTA Abdomen:+ bowel sounds, soft, nontender Labs and images reviewed. Significant for microcytic anemia, Hgb = 7.6, HCT = 27.9, MCV = 65.2, MCH = 17.8, INR = 1.2 Assessment/plan: 77-year-old male with history of colon cancer status post resection with anastomosis, PE on anticoagulation with Xarelto presenting with weakness. Found to have microcytic anemia, hemoglobin of 7.2, Hemoccult positive stools. Concern for GI bleed -Admit with telemetry -Monitor CBC, transfuse for active bleed, symptomatic anemia, hemoglobin less than 7 -Pepcid twice daily -Consult GI and general surgery. Appreciate assistance with this case -Hold Xarelto Remainder of plan as above Resident Activity Tracking Resident Involvement: Resident Care Provided Care Provided: Adult Hospital Medicine (1) GI bleed GI bleed type/associated pathology: unspecified gastrointestinal hemorrhage type Qualified Code(s): K92.2 - Gastrointestinal hemorrhage, unspecified (2) CHF (congestive heart failure) Heart failure chronicity: acute on chronic Heart failure type: combined systolic and diastolic Qualified Code(s): I50.43 - Acute on chronic combined systolic (congestive) and diastolic (congestive) heart failure (3) Anemia Anemia type: unspecified type Qualified Code(s): D64.9 - Anemia, unspecified (4) Hyperlipidemia Hyperlipidemia type: unspecified Qualified Code(s): E78.5 - Hyperlipidemia, unspecified
[2018-08-17] MEDS ORDERED: FAMOTIDINE 20MG/5ML IV PUSH ONE (20:45)
[2018-08-17] MEDS ORDERED: ACETAMINOPHEN 325 MG TAB PO PRN (21:34)
[2018-08-17] MEDS ORDERED: BUDESONIDE/FORMOTEROL FUMARATE 160/4.5 60 PUFFS/INHALER INH PRN (21:34)
[2018-08-17] MEDS ORDERED: ONDANSETRON INJ 2 MG/ML 2 ML VIAL IV PRN (21:34)
[2018-08-17] MEDS: LACTATED RINGER'S 1,000 ML IV SCH (22:12)
[2018-08-17] MEDS: TERAZOSIN HCL 5 MG CAP PO SCH (22:58)
[2018-08-17] MEDS: POTASSIUM CHLORIDE 20 MEQ TABCR PO SCH (22:58)
[2018-08-17] MEDS: FUROSEMIDE 40 MG TAB PO SCH (22:58)
[2018-08-18 06:35] LABS: Hematocrit (blood only) 25.2 % (42-52); Hemoglobin 6.9 g/dL (14.0-18.0); Mean Corpuscular Hgb Conc 27.4 g/dL (32-36); Mean Corpuscular Volume 65.3 fL (80-100); Mean Platelet Volume 9.4 fL (7.4-10.4); Platelet Count 218 K/uL (130-400); RDW Coefficient of Variation 18.6 % (11.5-14.5); RDW Standard Deviation 43.3 fL (36.4-46.3); Red Blood Count 3.86 M/uL (4.7-6.1); White Blood Count 6.22 K/uL (4.8-10.8)
[2018-08-18 06:46] LABS: BUN Creatinine Ratio 16.1 (10-20); Calcium 8.2 mg/dl (8.5-10.1); Creatinine Clr Calc Pharmacy 69.9 ml/min; Est GFR (African American) 96.5; Est GFR (Non-African American) 83.3; Potassium 3.7 mmol/L (3.5-5.1)
[2018-08-18 06:51] LABS: Ferritin 8.5 ng/ml (8-388)
[2018-08-18 06:52] LABS: Basophils # (auto) 0.02 K/uL (0-0.2); Basophils % (auto) 0.3 %; Eosinophils # (auto) 0.11 K/uL (0-0.5); Eosinophils % (auto) 1.8 %; Hypochromasia Present; Immature Granulocytes # (auto) 0.01 K/uL (0.00-0.02); Immature Granulocytes % (auto) 0.2 %; Lymphocytes # (auto) 1.31 K/uL (1.2-3.4); Lymphocytes % (auto) 21.1 %; Microcytosis Present; Monocytes # (auto) 0.99 K/uL (0.11-0.59); Monocytes % (auto) 15.9 %; Neutrophils # (auto) 3.78 K/uL (1.4-6.5); Neutrophils % (auto) 60.7 %; Ovalocytes 1+
[2018-08-18] MEDS: FAMOTIDINE 20 MG in SYRINGE 3 ML IV SCH ×2 (08:01→21:28)
[2018-08-18] MEDS: POTASSIUM CHLORIDE 20 MEQ TABCR PO SCH ×2 (08:02→19:39)
[2018-08-18] MEDS: FUROSEMIDE 40 MG TAB PO SCH ×2 (08:02→19:39)
[2018-08-18] MEDS: LORATADINE 10 MG TAB PO SCH (08:02)
[2018-08-18] MEDS: SIMVASTATIN 40 MG TAB PO SCH (08:03)
[2018-08-18] MEDS: TIOTROPIUM BROMIDE 5 PUFF/90 MCG INH INH SCH (08:03)
[2018-08-18] MEDS ORDERED: SODIUM CHLORIDE 0.9% 250 ML IV PRN ×2 (08:31→08:38)
[2018-08-18] MEDS ORDERED: Nursing to Pharmacy Communication ONE (08:52)
[2018-08-18] MEDS ORDERED: FAMOTIDINE 20MG/5ML IV PUSH IV SCH (09:00)
--- NOTE | 2018-08-18 09:02 | Gastrointestinal Consultation ---
Date of Consultation August 18, 2018 Assessment & Plan (1) Anemia: No overt ongoing GI bleeding. Plan for EGD today, if negative then will prep and do colonoscopy tomorrow. Continue to hold AC for now. (2) Positive occult stool blood test: History of Present Illness Attending Physician: Iveth Long MD 77 year-old male patient with Hx of stage I colon cancer s/p left hemicolectomy last year, Hx of PE on Xarelto, CAD, CHF, COPD, Hx of CDI, presented with fatigue and found with symptomatic anemia. Denies any signs of overt GI bleed but his stool is getting dark green recently. Denies any abdominal pain, nausea or vomiting. No diarrhea. No fever or chills. Labs showed drop in H/H. Allergies Allergy/AdvReac Type Severity Reaction Status Date / Time Penicillins Allergy Mild Unknown Verified 08/17/18 17:50 Sulfa (Sulfonamide Allergy Mild Unknown Verified 08/17/18 17:50 Antibiotics) ubidecarenone AdvReac Intermediate BLOOD IN Verified 08/17/18 17:50 STOOL quetiapine AdvReac Mild Hallucinati Unverified 08/17/18 18:08 ons Home Medications Home Medications Medication Instructions Recorded Confirmed Type loratadine 10 mg PO QAM 01/21/18 08/17/18 History ranitidine HCl 150 mg PO QAM 01/21/18 08/17/18 History simvastatin 20 mg PO DAILY 01/21/18 08/17/18 History terazosin 10 mg PO HS 01/21/18 08/17/18 History Spiriva with HandiHaler 18 mcg INHALATION QAM #1 inha 02/09/18 08/17/18 Rx Symbicort 2 puff INHALATION Q4H PRN #6 gm 02/09/18 08/17/18 Rx potassium chloride ER 20 mEq 20 meq PO BID 02/23/18 08/17/18 History tablet,extended release(part/cryst) rivaroxaban 20 mg tablet 20 mg PO QAM 02/23/18 08/17/18 History metoprolol tartrate 25 mg PO BID #60 tab 03/14/18 08/17/18 Rx furosemide [Lasix] 40 mg PO BID 08/17/18 08/17/18 History lisinopril 0 mg PO QAM 08/17/18 08/17/18 History Patient History Medical History Bilateral lower extremity edema ASCVD (arteriosclerotic cardiovascular disease) (Chronic) Pulmonary emboli (Acute) Acute blood loss anemia Obesity, morbid, BMI 40.0-49.9 BPH (benign prostatic hyperplasia) Hyperlipidemia GERD (gastroesophageal reflux disease) Cardiomyopathy Non-sustained ventricular tachycardia Ventricular tachycardia DVT prophylaxis Malignant neoplasm of left colon Status post low anterior resection with primary re-anastomosis on 01/30/[address] Addison Irregular heart rate Adenocarcinoid tumor Colitis Colonic mass COPD (chronic obstructive pulmonary disease) (Chronic) Ileus (Chronic) SOB (shortness of breath) (Acute) Vomiting (Acute) Abdominal pain, diffuse (Acute) Leukocytosis (Acute) Arthritis (Chronic) Hypertension (Chronic) Asthma (Chronic) CHF (congestive heart failure) (Chronic) Acute CHF (Chronic) COPD exacerbation (Chronic) Adenocarcinoma (Chronic) Surgical History Hx of colonoscopy (Chronic) History of surgical removal of left nipple (Chronic) History of appendectomy Hx of tonsillectomy Family History Other Benign essential HTN Heart disease Social History Preferred Language: Sammarinese Communication Ability: Effective Beliefs That Will Affect Care: None marital status: Current Living Situation: Spouse Other Information That Helps Us Care for You: No Feels Safe at Home: Yes Safety Concerns: Feels Safe At This Time Smoking Status: Former smoker Hx Alcohol Use: No Hx Substance Use: No Review of Systems Eyes: no eye pain and no worsening vision Ear, Nose, Mouth, Throat: no tinnitus, no dizziness, no nasal discharge and no epistaxis Respiratory: no cough, no dyspnea, no dyspnea on exertion and no wheezing Cardiovascular: no chest pain, no orthopnea, no palpitations and no edema Gastrointestinal: as per Subjective / HPI Musculoskeletal: no stiffness and no myalgia Neurologic: no localized weakness, no paralysis, no tremor(s) and no headache(s) Endocrine: no polydipsia and no polyuria Hematologic / Lymphatic: no easy bleeding and no night sweats Physical Exam Vital Signs (Past 24 Hours): Last Vital Signs Temp 36.9 C 08/18/18 08:00 Pulse 84 08/18/18 08:00 Resp 18 08/18/18 08:00 BP 117/69 08/18/18 08:00 Pulse Ox 100 08/18/18 08:00 Constitutional: + well hydrated, cooperative and comfortable Eyes: PERRL, conjunctivae normal, anicteric sclerae ENMT: external ear and nose normal, oropharynx normal Neck: normal visual inspection and trachea midline Respiratory: normal respiratory effort, lungs clear to auscultation Auscultation: no wheezes Cardiovascular: RRR, no murmur, no edema Gastrointestinal (Abdomen): normal bowel sounds, soft, nontender, no hepatosplenomegaly Musculoskeletal: no cyanosis or clubbing, extremities motor strength 5/5 Skin: no rashes, warm and dry Neurologic: awake; no focal motor deficits Motor/Sensory: no tremor Results & Data Laboratory Results Laboratory Results - last 24 hr 08/17/18 08/17/18 08/17/18 18:17 18:18 18:18 WBC 7.21 RBC 4.28 L Hgb 7.6 L Hct 27.9 L MCV 65.2 L MCH 17.8 L MCHC 27.2 L RDW Std Deviation 43.5 RDW Coeff of Juan 18.4 H Plt Count 251 MPV 10.0 Immature Gran % (Auto) 0.3 Neut % (Auto) 66.0 Lymph % (Auto) 20.1 [place] % (Auto) 11.8 Eos % (Auto) 1.5 Baso % (Auto) 0.3 Immature Gran # (Auto) 0.02 Neut # (Auto) 4.76 Lymph # (Auto) 1.45 [place] # (Auto) 0.85 H Eos # (Auto) 0.11 Baso # (Auto) 0.02 Hypochromasia Present Microcytosis Ovalocytes 1+ PT 12.6 H INR 1.2 H APTT 27.6 PTT Ratio 1.0 Sodium Potassium Chloride Carbon Dioxide Anion Gap BUN Creatinine Est Cr Clr Drug Dosing Est GFR ( Amer) Est GFR (Non-Af Amer) BUN/Creatinine Ratio Glucose Calcium Magnesium Iron TIBC Transferrin Transferrin % Sat Ferritin Total Bilirubin AST ALT Alkaline Phosphatase Troponin I Total Protein Albumin Globulin Albumin/Globulin Ratio Blood Type A Positive Antibody Screen NEGATIVE Crossmatch See Detail 08/17/18 08/18/18 08/18/18 18:18 05:54 05:54 WBC 6.22 RBC 3.86 L Hgb 6.9 L* Hct 25.2 L MCV 65.3 L MCH 17.9 L MCHC 27.4 L RDW Std Deviation 43.3 RDW Coeff of Juan 18.6 H Plt Count 218 MPV 9.4 Immature Gran % (Auto) 0.2 Neut % (Auto) 60.7 Lymph % (Auto) 21.1 [place] % (Auto) 15.9 Eos % (Auto) 1.8 Baso % (Auto) 0.3 Immature Gran # (Auto) 0.01 Neut # (Auto) 3.78 Lymph # (Auto) 1.31 [place] # (Auto) 0.99 H Eos # (Auto) 0.11 Baso # (Auto) 0.02 Hypochromasia Present Microcytosis Present Ovalocytes 1+ PT INR APTT PTT Ratio Sodium 139 140 Potassium 3.7 3.7 Chloride 106 109 H Carbon Dioxide 27 26 Anion Gap 6.0 5.0 BUN 18 14 Creatinine 0.95 0.84 Est Cr Clr Drug Dosing Not Reportable 69.9 Est GFR ( Amer) 87.9 96.5 Est GFR (Non-Af Amer) 75.8 83.3 BUN/Creatinine Ratio 18.5 16.1 Glucose 115 H 87 Calcium 8.9 8.2 L Magnesium 2.6 H Iron 16 L TIBC 379 Transferrin 265 Transferrin % Sat 4 L Ferritin 8.5 Total Bilirubin 0.3 AST 10 L ALT 12 Alkaline Phosphatase 116 Troponin I < 0.015 Total Protein 7.8 Albumin 3.4 Globulin 4.4 H Albumin/Globulin Ratio 0.8 L Blood Type Antibody Screen Crossmatch (1) Anemia Anemia type: unspecified type Qualified Code(s): D64.9 - Anemia, unspecified
[2018-08-18] MEDS ORDERED: FUROSEMIDE 40 MG in SYRINGE 0 ML IV SCH (10:00)
--- NOTE | 2018-08-18 10:04 | Surgery Consultation ---
Date of Consultation August 18, 2018 Assessment & Plan (1) GI bleed: 77 year old male with T3N1 rectal cancer s/p LAR 6 months ago, now with GI bleed. EGD today, colonoscopy tomorrow. If no source then needs imaging. Transfusion today. No emergent surgical management indicated Await results of EGD and colonoscopy hold a/c surgery will follow call with questions or concerns Present on Admission?: Yes History of Present Illness Attending Physician: Iveth Long MD History of Present Illness 76 y/o male known to me from prior low anterior resection in Jan 2018 for T3N1 rectal tumor. Had long and complex recovery with cdiff, wound infection, and PE. He had lab work drawn and was anemic with hgb 7.2, baseline around 11. He has been feeling weak, but was walking around when notified of h/h. Weight loss since surgery. Noticed dark green stool over past few weeks, some loose stools, no blood or melena. Was not a good candidate for chemo. Allergies Allergy/AdvReac Type Severity Reaction Status Date / Time Penicillins Allergy Mild Unknown Verified 08/17/18 17:50 Sulfa (Sulfonamide Allergy Mild Unknown Verified 08/17/18 17:50 Antibiotics) ubidecarenone AdvReac Intermediate BLOOD IN Verified 08/17/18 17:50 STOOL quetiapine AdvReac Mild Hallucinati Unverified 08/17/18 18:08 ons Home Medications Home Medications Medication Instructions Recorded Confirmed Type loratadine 10 mg PO QAM 01/21/18 08/17/18 History ranitidine HCl 150 mg PO QAM 01/21/18 08/17/18 History simvastatin 20 mg PO DAILY 01/21/18 08/17/18 History terazosin 10 mg PO HS 01/21/18 08/17/18 History Spiriva with HandiHaler 18 mcg INHALATION QAM #1 inha 02/09/18 08/17/18 Rx Symbicort 2 puff INHALATION Q4H PRN #6 gm 02/09/18 08/17/18 Rx potassium chloride ER 20 mEq 20 meq PO BID 02/23/18 08/17/18 History tablet,extended release(part/cryst) rivaroxaban 20 mg tablet 20 mg PO QAM 02/23/18 08/17/18 History metoprolol tartrate 25 mg PO BID #60 tab 03/14/18 08/17/18 Rx furosemide [Lasix] 40 mg PO BID 08/17/18 08/17/18 History lisinopril 0 mg PO QAM 08/17/18 08/17/18 History Patient History Medical History Bilateral lower extremity edema ASCVD (arteriosclerotic cardiovascular disease) (Chronic) Pulmonary emboli (Acute) Acute blood loss anemia Obesity, morbid, BMI 40.0-49.9 BPH (benign prostatic hyperplasia) Hyperlipidemia GERD (gastroesophageal reflux disease) Cardiomyopathy Non-sustained ventricular tachycardia Ventricular tachycardia DVT prophylaxis Malignant neoplasm of left colon Status post low anterior resection with primary re-anastomosis on 01/30/[address] Addison Irregular heart rate Adenocarcinoid tumor Colitis Colonic mass COPD (chronic obstructive pulmonary disease) (Chronic) Ileus (Chronic) SOB (shortness of breath) (Acute) Vomiting (Acute) Abdominal pain, diffuse (Acute) Leukocytosis (Acute) Arthritis (Chronic) Hypertension (Chronic) Asthma (Chronic) CHF (congestive heart failure) (Chronic) Acute CHF (Chronic) COPD exacerbation (Chronic) Adenocarcinoma (Chronic) Surgical History Hx of colonoscopy (Chronic) History of surgical removal of left nipple (Chronic) History of appendectomy Hx of tonsillectomy Family History Other Benign essential HTN Heart disease Social History Preferred Language: Serbian Communication Ability: Effective Beliefs That Will Affect Care: None marital status: Current Living Situation: Spouse Other Information That Helps Us Care for You: No Feels Safe at Home: Yes Safety Concerns: Feels Safe At This Time Smoking Status: Former smoker Hx Alcohol Use: No Hx Substance Use: No Review of Systems 10 point review of systems negative except as above. Physical Exam Vital Signs (Past 24 Hours): Last Vital Signs Temp 36.9 C 08/18/18 09:48 Pulse 94 H 08/18/18 09:48 Resp 18 08/18/18 09:48 BP 115/69 08/18/18 09:48 Pulse Ox 98 08/18/18 09:48 Constitutional: WD/WN, vitals as above obese Eyes: PERRL, conjunctivae normal, anicteric sclerae ENMT: external ear and nose normal, oropharynx normal Neck: trachea midline, no thyromegaly Respiratory: normal respiratory effort, lungs clear to auscultation Cardiovascular: RRR, no murmur, no edema Gastrointestinal (Abdomen): normal bowel sounds, soft, nontender, no hepatosplenomegaly incision well healed, no hernia. Obese Musculoskeletal: no cyanosis or clubbing, extremities motor strength 5/5 Skin: no rashes, warm and dry Neurologic: PERRL, EOMI, accommodation nl, no face palsy, no dysarthria Psychiatric: A+Ox3, euthymic affect Lymphatic: no cervical or axillary lymphadenopathy Results & Data Laboratory Results Laboratory Results - last 24 hr 08/17/18 08/17/18 08/17/18 18:17 18:18 18:18 WBC 7.21 RBC 4.28 L Hgb 7.6 L Hct 27.9 L MCV 65.2 L MCH 17.8 L MCHC 27.2 L RDW Std Deviation 43.5 RDW Coeff of Juan 18.4 H Plt Count 251 MPV 10.0 Immature Gran % (Auto) 0.3 Neut % (Auto) 66.0 Lymph % (Auto) 20.1 [place] % (Auto) 11.8 Eos % (Auto) 1.5 Baso % (Auto) 0.3 Immature Gran # (Auto) 0.02 Neut # (Auto) 4.76 Lymph # (Auto) 1.45 [place] # (Auto) 0.85 H Eos # (Auto) 0.11 Baso # (Auto) 0.02 Hypochromasia Present Microcytosis Ovalocytes 1+ PT 12.6 H INR 1.2 H APTT 27.6 PTT Ratio 1.0 Sodium Potassium Chloride Carbon Dioxide Anion Gap BUN Creatinine Est Cr Clr Drug Dosing Est GFR ( Amer) Est GFR (Non-Af Amer) BUN/Creatinine Ratio Glucose Calcium Magnesium Iron TIBC Transferrin Transferrin % Sat Ferritin Total Bilirubin AST ALT Alkaline Phosphatase Troponin I Total Protein Albumin Globulin Albumin/Globulin Ratio Blood Type A Positive Antibody Screen NEGATIVE Crossmatch See Detail 08/17/18 08/18/18 08/18/18 18:18 05:54 05:54 WBC 6.22 RBC 3.86 L Hgb 6.9 L* Hct 25.2 L MCV 65.3 L MCH 17.9 L MCHC 27.4 L RDW Std Deviation 43.3 RDW Coeff of Juan 18.6 H Plt Count 218 MPV 9.4 Immature Gran % (Auto) 0.2 Neut % (Auto) 60.7 Lymph % (Auto) 21.1 [place] % (Auto) 15.9 Eos % (Auto) 1.8 Baso % (Auto) 0.3 Immature Gran # (Auto) 0.01 Neut # (Auto) 3.78 Lymph # (Auto) 1.31 [place] # (Auto) 0.99 H Eos # (Auto) 0.11 Baso # (Auto) 0.02 Hypochromasia Present Microcytosis Present Ovalocytes 1+ PT INR APTT PTT Ratio Sodium 139 140 Potassium 3.7 3.7 Chloride 106 109 H Carbon Dioxide 27 26 Anion Gap 6.0 5.0 BUN 18 14 Creatinine 0.95 0.84 Est Cr Clr Drug Dosing Not Reportable 69.9 Est GFR ( Amer) 87.9 96.5 Est GFR (Non-Af Amer) 75.8 83.3 BUN/Creatinine Ratio 18.5 16.1 Glucose 115 H 87 Calcium 8.9 8.2 L Magnesium 2.6 H Iron 16 L TIBC 379 Transferrin 265 Transferrin % Sat 4 L Ferritin 8.5 Total Bilirubin 0.3 AST 10 L ALT 12 Alkaline Phosphatase 116 Troponin I < 0.015 Total Protein 7.8 Albumin 3.4 Globulin 4.4 H Albumin/Globulin Ratio 0.8 L Blood Type Antibody Screen Crossmatch (1) GI bleed GI bleed type/associated pathology: unspecified gastrointestinal hemorrhage type Qualified Code(s): K92.2 - Gastrointestinal hemorrhage, unspecified
[2018-08-18] MEDS ORDERED: PROPOFOL IV EMULSION 10 MG/ML 20 ML VIAL IV ONE (10:47)
[2018-08-18] MEDS ORDERED: LIDOCAINE HCL 2% 2 ML VIAL/AMP(20MG/ML) INFIL ONE (10:47)
[2018-08-18] MEDS ORDERED: ATROPINE SULFATE 0.1 MG/ML 10ML SYR IV PRN (10:56)
[2018-08-18] MEDS ORDERED: ePHEDrine sulfate 50 MG/ML AMP IV PRN (10:57)
[2018-08-18] MEDS ORDERED: fentaNYL citrate 100 MCG/2 ML VIAL IV PRN (11:00)
--- NOTE | 2018-08-18 11:06 | Operative Report ---
Post Operative Report Pre & Post Diagnosis Operation Date: 08/18/18 10:00 <No data on this case meets the specified criteria> Procedure Operation Date: 08/18/18 10:00 <No data on this case meets the specified criteria> Surgeon Guanaco Marrero MD [facility] None Estimated Blood Loss 0 Findings See Below (Normal EGD) Specimens None Description of Procedure EGD I attest to the content of the Intraoperative Record and any orders documented therein. Any exceptions are noted below.
--- NOTE | 2018-08-18 11:23 | GI REPORT ---
Patient Name: Avtar Magallanes Procedure Date: 08/18/2018 10:43 AM Date of : 1940 Admit Type: Inpatient Age: 77 Gender: Male Attending MD: Guanaco Marrero MD Procedure: Upper GI endoscopy Providers: Guanaco Marrero MD Referring MD: Iveth Long Indications: Heme positive stool, Suspected upper gastrointestinal bleeding in patient with chronic blood loss, Anemia Medicines: Monitored Anesthesia Care Complications: No immediate complications. Estimated Blood Loss: Estimated blood loss: none. Procedure: Pre-Anesthesia Assessment: - Prior to the procedure, a History and Physical was performed, and patient medications and allergies were reviewed. The patient is competent. The risks and benefits of the procedure and the sedation options and risks were discussed with the patient. All questions were answered and informed consent was obtained. Patient identification and proposed procedure were verified by the physician and the nurse in the procedure room. Mental Status Examination: alert and oriented. Airway Examination: normal oropharyngeal airway and neck mobility. Respiratory Examination: clear to auscultation. CV Examination: normal. ASA Grade Assessment: III - A patient with severe systemic disease. After reviewing the risks and benefits, the patient was deemed in satisfactory condition to undergo the procedure. The anesthesia plan was to use monitored anesthesia care (MAC). Immediately prior to administration of medications, the patient was re-assessed for adequacy to receive sedatives. The heart rate, respiratory rate, oxygen saturations, blood pressure, adequacy of pulmonary ventilation, and response to care were monitored throughout the procedure. The physical status of the patient was re-assessed after the procedure. After obtaining informed consent, the endoscope was passed under direct vision. Throughout the procedure, the patient's blood pressure, pulse, and oxygen saturations were monitored continuously. The scope was introduced through the mouth, and advanced to the third part of duodenum. The upper GI endoscopy was accomplished without difficulty. The patient tolerated the procedure well. Findings: The examined esophagus was normal. The entire examined stomach was normal. The duodenal bulb and second portion of the duodenum were normal. Impression: - Normal esophagus. - Normal stomach. - Normal duodenal bulb and second portion of the duodenum. - No specimens collected. Recommendation: - [facility] patient [facility] care. - Clear liquid diet today. - Perform a colonoscopy tomorrow after bowel preparation today. Guanaco Marrero MD 08/18/2018 11:23:10 AM This report has been signed electronically. Note Initiated On: 08/18/2018 10:43 AM Number of Addenda: 0 I attest to the content of the Intraoperative Record and orders documented therein, exceptions below {[id number]}
--- NOTE | 2018-08-18 11:39 | Anesthesiology Progress Note ---
Date of Service August 18, 2018 Anesthesia Post Procedure Vital Signs Vital Signs: Temp Pulse Pulse Pulse Pulse Resp BP 08/18/18 11:25 87 21 08/18/18 11:15 36.6 C 99 H 16 08/18/18 10:00 37 C 81 20 116/66 08/18/18 09:48 36.9 C 94 H 18 115/69 08/18/18 09:45 36.9 C 81 20 115/69 08/18/18 09:30 110 H 08/18/18 09:29 36.7 C 97 H 20 125/73 08/18/18 09:16 36.7 C 96 H 18 123/75 08/18/18 09:15 97 H 08/18/18 09:04 100 H 08/18/18 08:45 96 H 08/18/18 08:30 88 08/18/18 08:15 92 H 08/18/18 08:00 36.9 C 89 84 18 08/18/18 07:45 85 08/18/18 07:30 71 08/18/18 07:15 86 08/18/18 07:00 84 08/18/18 06:45 90 08/18/18 06:30 89 08/18/18 06:15 93 H 08/18/18 06:00 87 08/18/18 05:45 73 08/18/18 05:30 85 08/18/18 05:15 90 08/18/18 05:00 91 H 08/18/18 04:45 94 H 08/18/18 04:30 104 H 08/18/18 04:15 106 H 08/18/18 04:00 94 H 08/18/18 03:58 37 C 85 19 08/18/18 03:45 80 08/18/18 03:30 98 H 08/18/18 03:15 99 H 08/18/18 03:00 86 08/18/18 02:45 96 H 08/18/18 02:30 103 H 08/18/18 02:15 91 H 08/18/18 02:00 89 08/18/18 01:45 89 08/18/18 01:30 92 H 08/18/18 01:15 93 H 08/18/18 01:00 97 H 08/18/18 00:45 90 08/18/18 00:30 90 08/18/18 00:15 90 08/18/18 00:00 91 H 08/17/18 23:45 83 08/17/18 23:35 36.6 C 83 22 08/17/18 23:30 82 08/17/18 23:15 84 08/17/18 23:00 83 08/17/18 22:45 87 08/17/18 22:30 85 08/17/18 22:15 86 08/17/18 22:00 81 08/17/18 21:52 37.5 C 79 20 08/17/18 21:45 87 08/17/18 21:41 90 08/17/18 21:35 90 08/17/18 21:15 93 H 19 08/17/18 20:21 93 H 18 08/17/18 18:51 90 18 08/17/18 18:30 86 25 H 08/17/18 17:59 98 H 20 08/17/18 17:29 36.6 C 99 H 20 121/56 L BP BP Pulse Ox 08/18/18 11:25 108/58 L 100 08/18/18 11:15 99/56 L 100 08/18/18 10:00 98 08/18/18 09:48 98 08/18/18 09:45 99 08/18/18 09:30 08/18/18 09:29 99 08/18/18 09:16 98 08/18/18 09:15 08/18/18 09:04 08/18/18 08:45 08/18/18 08:30 08/18/18 08:15 08/18/18 08:00 117/69 100 08/18/18 07:45 08/18/18 07:30 08/18/18 07:15 08/18/18 07:00 08/18/18 06:45 08/18/18 06:30 08/18/18 06:15 08/18/18 06:00 08/18/18 05:45 08/18/18 05:30 08/18/18 05:15 08/18/18 05:00 08/18/18 04:45 08/18/18 04:30 08/18/18 04:15 08/18/18 04:00 08/18/18 03:58 120/69 97 08/18/18 03:45 08/18/18 03:30 08/18/18 03:15 08/18/18 03:00 08/18/18 02:45 08/18/18 02:30 08/18/18 02:15 08/18/18 02:00 08/18/18 01:45 08/18/18 01:30 08/18/18 01:15 08/18/18 01:00 08/18/18 00:45 08/18/18 00:30 08/18/18 00:15 08/18/18 00:00 08/17/18 23:45 08/17/18 23:35 121/73 100 08/17/18 23:30 08/17/18 23:15 08/17/18 23:00 08/17/18 22:45 08/17/18 22:30 08/17/18 22:15 08/17/18 22:00 08/17/18 21:52 146/73 H 100 08/17/18 21:45 08/17/18 21:41 08/17/18 21:35 08/17/18 21:15 08/17/18 20:21 123/90 99 08/17/18 18:51 115/68 99 08/17/18 18:30 110/66 99 08/17/18 17:59 100 08/17/18 17:29 100 Pain Intensity Throat: Pain Intensity: 0 Notes Mental Status: alert / awake / arousable Patient Amnestic to Procedure: Yes Nausea / Vomiting: adequately controlled Pain: adequately controlled Airway Patency, RR, SpO2: stable & adequate BP & HR: stable & adequate Hydration State: stable & adequate Anesthetic Complications: no major complications apparent and Pt Satisfied with anesthetic care
[2018-08-18] MEDS ORDERED: LAVAGE SOLUTION 4000ML PO SCH (13:00)
--- NOTE | 2018-08-18 14:44 | Family Medicine Progress Note ---
Date of Service August 18, 2018 Assessment & Plan (1) GI bleed: 77 yo male was admitted on 17 August 2018 for suspected GI bleed. Anemia: - Likely 2/2 GI bleed - Hb 7.6 on admission down to 6.9 this morning. Transfused two units of PRBC's - Will recheck Hb this afternoon. - Continuing pepcid 20 mg IV BID GI bleed - Taken for upper endoscopy under anesthesia today - No evidence of any bleeding source - Will have colonoscopy tomorrow after finishing prep Pulmonary emboli - Diagnosed with this in early 2018. -Holding Xarelto Hypertension, hyperlipidemia, CAD, cardiomyopathy - On home simvastatin and terazosin. - Holding home metoprolol as pressures currently well controlled 126/83 COPD - Continuing home symbicort and Spiriva. Chronic systolic CHF - Per previous discharge summary in Mar 2018, echo noted EF of 45-50%, grade 1 diastolic dysfunction. - On home Lasix 40 mg BID and potassium. - Holding IV fluids and gave 40 mg lasix in between transfusions. - Will continue to monitor for signs of fluid overload. Code status: Full code. Diet: N.p.o. DVT prophy: Held chemical prophy due to concerns for GI bleed. SCDs. PT/OT: Ordered. Dispo: Tele (2) Anemia: (3) Malignant neoplasm of left colon: (4) Pulmonary emboli: (5) Hypertension: (6) Hyperlipidemia: (7) Coronary artery disease: (8) Cardiomyopathy: (9) GERD (gastroesophageal reflux disease): (10) COPD (chronic obstructive pulmonary disease): (11) CHF (congestive heart failure): (12) Arthritis: (13) Insomnia: (14) Obesity, morbid, BMI 40.0-49.9: Supervising Physician Co-Signing Physician Notes Resident Physician Supervision Note: I independently interviewed and examined the patient and verified the rodriguez history and physical, reviewed labs and image studies, discussed the case with the resident Dr. Raza and agree with the findings and care plan. Subjective Avtar Magallanes sitting up alert and comfortable today. He is in high spirits and excited to watch the [employer] tournament today after his procedures. He does not complain of any fatigue currently. He tells me he had a bowel movement about an hour ago that was not black/tarry or bloody. Constitutional: no fever, no chills and no weakness Respiratory: no cough and no dyspnea Cardiovascular: no chest pain, no dyspnea and no palpitations Gastrointestinal: no abdominal pain, no nausea, no vomiting, no change in stools, no constant urge to pass stools, no blood in stools and no melena Physical Exam Vital Signs (Past 24 Hours): Last Vital Signs Temp 36.6 C 08/18/18 14:00 Pulse 86 08/18/18 14:00 Resp 18 08/18/18 14:00 BP 142/76 H 08/18/18 14:00 Pulse Ox 97 08/18/18 14:00 Constitutional: well developed, + obese and + lethargic; no acute distress and no altered mental status Respiratory: normal respiratory effort, lungs clear to auscultation Cardiovascular: Rate/Rhythm: regular rate and regular rhythm Heart Sounds: no click, no gallop, no murmur and no cardiac rub Vessels: brachial pulses present Extremities: no calf tenderness Gastrointestinal (Abdomen): Inspection/Auscultation: normal bowel sounds and + abdominal surgical incision (Just below umbilicus) Percussion/Palpation: abdomen soft; abdomen nontender, no guarding, abdomen not rigid and no hepatosplenomegaly Resident Activity Tracking Resident Involvement: Resident Care Provided Care Provided: Adult Hospital Medicine (1) GI bleed GI bleed type/associated pathology: unspecified gastrointestinal hemorrhage type Qualified Code(s): K92.2 - Gastrointestinal hemorrhage, unspecified (2) CHF (congestive heart failure) Heart failure chronicity: acute on chronic Heart failure type: combined systolic and diastolic Qualified Code(s): I50.43 - Acute on chronic combined systolic (congestive) and diastolic (congestive) heart failure (3) Anemia Anemia type: unspecified type Qualified Code(s): D64.9 - Anemia, unspecified (4) Hyperlipidemia Hyperlipidemia type: unspecified Qualified Code(s): E78.5 - Hyperlipidemia, unspecified
[2018-08-18 18:31] LABS: Hematocrit (blood only) 31.8 % (42-52); Hemoglobin 9.3 g/dL (14.0-18.0)
[2018-08-18] MEDS: TERAZOSIN HCL 5 MG CAP PO SCH (19:40)
[2018-08-19 07:18] LABS: BUN Creatinine Ratio 12.1 (10-20); Calcium 8.7 mg/dl (8.5-10.1); Creatinine Clr Calc Pharmacy 73.2 ml/min; Est GFR (African American) 98.5; Potassium 3.5 mmol/L (3.5-5.1)
--- NOTE | 2018-08-19 08:34 | Anesthesiology Consultation ---
Date of Service August 19, 2018 Assessment & Plan Chart Review Chart Review: Acceptable Risk for Surgery and Patient NOT seen in Pre Admission Testing Consults Requested none NPO Date Last Intake of Fluids: 08/17/18 Time Last Intake of Fluids: 08:00 Date Last Intake of Solids: 08/17/18 Time Last Intake of Solids: 14:00 History Surgery Operation Date: 08/18/18 10:00 Proposed Procedures p Esophagogastroduodenoscopy Dr Marrero - Guanaco Marrero MD Operation Date: 08/19/18 08:30 Proposed Procedures p Colonoscopy - Guanaco Marrero MD Height/Weight Height: 5 ft 1 in Weight: 94.3 kg Allergies Allergy/AdvReac Type Severity Reaction Status Date / Time Penicillins Allergy Mild Unknown Verified 08/17/18 17:50 Sulfa (Sulfonamide Allergy Mild Unknown Verified 08/17/18 17:50 Antibiotics) ubidecarenone AdvReac Intermediate BLOOD IN Verified 08/17/18 17:50 STOOL quetiapine AdvReac Mild Hallucinati Unverified 08/17/18 18:08 ons Medications Home Medications Medication Instructions Recorded Confirmed Last Taken loratadine 10 mg PO QAM 01/21/18 08/17/18 08/16/18 ranitidine HCl 150 mg PO QAM 01/21/18 08/17/18 08/16/18 simvastatin 20 mg PO DAILY 01/21/18 08/17/18 08/16/18 20:00 terazosin 10 mg PO HS 01/21/18 08/17/18 08/16/18 20:00 Spiriva with HandiHaler 18 mcg INHALATION QAM #1 inha 02/09/18 08/17/18 08/16/18 Symbicort 2 puff INHALATION Q4H PRN #6 gm 02/09/18 08/17/18 Unknown potassium chloride ER 20 mEq 20 meq PO BID 02/23/18 08/17/18 08/16/18 20:00 tablet,extended release(part/cryst) rivaroxaban 20 mg tablet 20 mg PO QAM 02/23/18 08/17/18 08/16/18 metoprolol tartrate 25 mg PO BID #60 tab 03/14/18 08/17/18 08/16/18 20:00 furosemide [Lasix] 40 mg PO BID 08/17/18 08/17/18 08/16/18 lisinopril 0 mg PO QAM 08/17/18 08/17/18 08/16/18 Active Medications Generic Name Dose Route Start Last Admin Trade Name Gautam PRN Reason Stop Dose Admin Furosemide 40 mg 08/17/18 21:34 08/18/18 19:39 Lasix PO 09/16/18 21:33 40 mg BID MARINE Administration Famotidine 20 mg/ Syringe 5 mls @ 2.5 mls/min 08/18/18 09:00 08/18/18 21:28 IV 09/17/18 08:59 2.5 mls/min BID MARINE Administration Loratadine 10 mg 08/18/18 09:00 08/18/18 08:02 Claritin PO 09/17/18 08:59 10 mg QAM MARINE Administration Potassium Chloride 20 meq 08/17/18 21:34 08/18/18 19:39 Klor-Con M20 PO 09/16/18 21:33 20 meq BID MARINE Administration Ranitidine HCl 150 mg 08/18/18 09:00 08/18/18 08:03 Zantac PO 09/17/18 08:59 150 mg QAM MARINE Administration Simvastatin 20 mg 08/18/18 09:00 08/18/18 08:03 Zocor PO 09/17/18 08:59 20 mg DAILY MARINE Administration Terazosin HCl 10 mg 08/17/18 21:34 08/18/18 19:40 Hytrin PO 09/16/18 21:33 10 mg HS MARINE Administration Tiotropium [place] 1 puffs 08/18/18 09:00 08/18/18 08:03 Spiriva INH 09/17/18 08:59 1 puffs QAM MARINE Administration Past Medical History Medical History Bilateral lower extremity edema ASCVD (arteriosclerotic cardiovascular disease) (Chronic) Pulmonary emboli (Acute) Acute blood loss anemia Obesity, morbid, BMI 40.0-49.9 BPH (benign prostatic hyperplasia) Hyperlipidemia GERD (gastroesophageal reflux disease) Cardiomyopathy Non-sustained ventricular tachycardia Ventricular tachycardia DVT prophylaxis Malignant neoplasm of left colon Status post low anterior resection with primary re-anastomosis on 01/30/[address] Addison Irregular heart rate Adenocarcinoid tumor Colitis Colonic mass COPD (chronic obstructive pulmonary disease) (Chronic) Ileus (Chronic) SOB (shortness of breath) (Acute) Vomiting (Acute) Abdominal pain, diffuse (Acute) Leukocytosis (Acute) Arthritis (Chronic) Hypertension (Chronic) Asthma (Chronic) CHF (congestive heart failure) (Chronic) Acute CHF (Chronic) COPD exacerbation (Chronic) Adenocarcinoma (Chronic) Past Family History Family History Other Benign essential HTN Heart disease Past Surgical History Surgical History Hx of colonoscopy (Chronic) History of surgical removal of left nipple (Chronic) History of appendectomy Hx of tonsillectomy Social History Smoking Status: Former smoker tobacco type: cigarettes Hx Alcohol Use: No Hx Substance Use: No substance use type: does not use Physical Exam Vital Signs Last Vital Signs Temp 36.8 C 08/19/18 04:01 Pulse 100 H 08/19/18 04:01 Resp 18 08/19/18 04:01 BP 119/62 08/19/18 04:01 Pulse Ox 98 08/19/18 04:01 Testing Electrocardiogram Date: 08/17/18 Findings: + NSR @ (92 BPM) frequent PVCs Echocardiogram Date: 01/26/18 EF: 45-50% Valvular Disease: + MR (mild mr, mild tr) Laboratory Results 08/19/18 06:26 08/19/18 06:26 Blood Type A Positive 08/17/18 18:17 Antibody Screen NEGATIVE 08/17/18 18:17 PT 12.6 Seconds (9.0-12.0) H 08/17/18 18:18 INR 1.2 (0.9-1.1) H 08/17/18 18:18 APTT 27.6 Seconds (21.0-31.0) 08/17/18 18:18
[2018-08-19] MEDS ORDERED: ePHEDrine sulfate 50 MG/ML AMP IV PRN ×2 (08:37→10:26)
[2018-08-19] MEDS ORDERED: ATROPINE SULFATE 0.1 MG/ML 10ML SYR IV PRN ×2 (08:37→10:26)
--- NOTE | 2018-08-19 08:48 | History & Physical Bridge Note ---
Date of Service August 19, 2018 History & Physical Bridge Note I have examined the patient, reviewed the History & Physical and in the interval since the performance of the History & Physical I have noted the following changes of clinical significance: no changes noted
[2018-08-19] MEDS ORDERED: PROPOFOL IV EMULSION 10 MG/ML 20 ML VIAL IV ONE ×2 (09:22→09:56)
[2018-08-19] MEDS ORDERED: LIDOCAINE HCL 2% 2 ML VIAL/AMP(20MG/ML) INFIL ONE (09:22)
--- NOTE | 2018-08-19 09:32 | Family Medicine Progress Note ---
Date of Service August 19, 2018 Assessment & Plan (1) GI bleed: (1) GI bleed: 77 yo male was admitted on 17 August 2018 for suspected GI bleed. Anemia: - Likely 2/2 GI bleed - Hb 7.6 on admission down to 6.9 yesterday morning. Transfused two units of PRBC's then improved to 9.3 yesterday evening. This morning 9.0. No signs of bleeding, no black/bloody BMs. - Continuing pepcid 20 mg IV BID GI bleed - Taken for upper endoscopy under anesthesia yesterday, No evidence of any bleeding source - Colonoscopy this morning: ileum examined normal. No source of bleeding seen. - One 12 mm polyp in the ascending colon, removed using injection-lift and a hot snare. Resected and retrieved. - One 20 mm polyp in the transverse colon, removed using injection-lift and a hot snare. Resected and retrieved. Clips (MR conditional) were placed. - One 4 mm polyp in the descending colon, removed with a cold snare. Resected and retrieved. - Two medium polyps in the descending colon. Resection deferred till next surveillance colonoscopy in 4 months. - Diverticulosis in the sigmoid colon and in the descending colon. - Patent end-to-end colo-colonic anastomosis, characterized by healthy appearing mucosa and an intact staple line. - Non-bleeding internal hemorrhoids. GI w/Recommendation: - Repeat colonoscopy in 4 months for retreatment of the remaining polyps. - Clear liquid diet for 2 days then soft diet for 5 days. - No aspirin, ibuprofen, naproxen, or other non-steroidal anti-inflammatory drugs for 5 days after polyp removal. - Hold anticoagulants for next 3 days, resume if no evidence of bleeding. - Consider VCE as OP. - Ciprofloxacine and Metronidazole for total of 7 days. Ventricular Tachycardia seen on cardiac monitoring - Patient noted to have 10 beat run of vtach around 06:58am this morning x2. Asymptomatic for dizziness/chest pain. - per review of [facility] outpatient EMR, had cardiology consult for same during admission on 02/02/2018. It was noted that at that time was present in the settint of mild non-ischemic cardiomyopathy with EF 45-50% assessed by several echocardiograms during admission. In this setting, there was no recommendation for ICD or electrophysiologic study and was treated with beta-blockade. Records indicate previous cardiac cath showing no CAD. - medications reviewed that might prolong QT, but not on any medications that could cause adverse effects. - electrolytes reviewed and normal. Will check Mag. History of Pulmonary emboli - Diagnosed with this in early 2018. -Holding Xarelto for 3 more days Hypertension, hyperlipidemia, CAD, cardiomyopathy - On home simvastatin and terazosin. - Holding home metoprolol as pressures currently well controlled 126/83 COPD - Continuing home symbicort and Spiriva. Chronic systolic CHF - Per previous discharge summary in Mar 2018, echo noted EF of 45-50%, grade 1 diastolic dysfunction. - Continue home Lasix 40 mg BID and potassium. - Euvolemic. - Will continue to monitor for signs of fluid overload. Code status: Full code. Diet: N.p.o. DVT prophy: Held chemical prophy due to concerns for GI bleed. SCDs. PT/OT: Ordered. Dispo: Tele (2) Anemia: (3) Malignant neoplasm of left colon: (4) Pulmonary emboli: (5) Hypertension: (6) Hyperlipidemia: (7) Coronary artery disease: (8) Cardiomyopathy: (9) GERD (gastroesophageal reflux disease): (10) COPD (chronic obstructive pulmonary disease): (11) CHF (congestive heart failure): (12) Arthritis: (13) Insomnia: (14) Obesity, morbid, BMI 40.0-49.9: (15) Ventricular tachycardia seen on library monitor: Supervising Physician Co-Signing Physician Notes Resident Physician Supervision Note: I independently interviewed and examined the patient and verified the rodriguez history and physical, reviewed labs and image studies, discussed the case with the resident Dr. Au and agree with the findings and care plan. Subjective Mr. Magallanes was visited s/p colonscopy this morning. He notes no acute complaints. Denies any difficulty with breathing, no abdominal pains, no chest pains. Physical Exam Vital Signs (Past 24 Hours): Last Vital Signs Temp 36.8 C 08/19/18 04:01 Pulse 87 08/19/18 08:40 Resp 16 08/19/18 08:40 BP 132/84 08/19/18 08:40 Pulse Ox 99 08/19/18 08:40 Constitutional: WD/WN, vitals as above Neck: normal visual inspection and trachea midline Respiratory: normal respiratory effort, lungs clear to auscultation Cardiovascular: Rate/Rhythm: regular rate Gastrointestinal (Abdomen): Inspection/Auscultation: normal bowel sounds Percussion/Palpation: abdomen soft; abdomen nontender, no guarding and abdomen not rigid Musculoskeletal: no cyanosis or clubbing, extremities motor strength 5/5 Skin: no rashes, warm and dry Neurologic: moves all extremities and awake Psychiatric: A+Ox3, euthymic affect Results & Data Laboratory Results Laboratory Results - last 24 hr 08/17/18 08/18/18 08/19/18 18:17 18:17 06:26 Hgb 9.3 L 9.0 L Hct 31.8 L 31.0 L Sodium Potassium Chloride Carbon Dioxide Anion Gap BUN Creatinine Est Cr Clr Drug Dosing Est GFR ( Amer) Est GFR (Non-Af Amer) BUN/Creatinine Ratio Glucose Calcium Blood Type A Positive Antibody Screen NEGATIVE Crossmatch See Detail 08/19/18 06:26 Hgb Hct Sodium 141 Potassium 3.5 Chloride 107 Carbon Dioxide 27 Anion Gap 7.0 BUN 10 Creatinine 0.80 Est Cr Clr Drug Dosing 73.2 Est GFR ( Amer) 98.5 Est GFR (Non-Af Amer) 85.0 BUN/Creatinine Ratio 12.1 Glucose 86 Calcium 8.7 Blood Type Antibody Screen Crossmatch Medications Administered Furosemide (Lasix) 40 mg PO BID [facility] Stop: 09/16/18 21:33 Last Admin: 08/18/18 19:39 Dose: 40 mg Documented by: [id number] Admin: 08/18/18 08:02 Dose: 40 mg Documented by: [id number] Admin: 08/17/18 22:58 Dose: 40 mg Documented by: [id number] Famotidine 20 mg/ Syringe 5 mls @ 2.5 mls/min IV BID [facility] Stop: 09/17/18 08:59 Last Admin: 08/18/18 21:28 Dose: 2.5 mls/min Documented by: [id number] Admin: 08/18/18 08:01 Dose: 2.5 mls/min Documented by: [id number] Loratadine (Claritin) 10 mg PO QAM [facility] Stop: 09/17/18 08:59 Last Admin: 08/18/18 08:02 Dose: 10 mg Documented by: [id number] Potassium Chloride (Klor-Con M20) 20 meq PO BID [facility] Stop: 09/16/18 21:33 Last Admin: 08/18/18 19:39 Dose: 20 meq Documented by: [id number] Admin: 08/18/18 08:02 Dose: 20 meq Documented by: [id number] Admin: 08/17/18 22:58 Dose: 20 meq Documented by: [id number] Ranitidine HCl (Zantac) 150 mg PO QAM [facility] Stop: 09/17/18 08:59 Last Admin: 08/18/18 08:03 Dose: 150 mg Documented by: [id number] Simvastatin (Zocor) 20 mg PO DAILY [facility] Stop: 09/17/18 08:59 Last Admin: 08/18/18 08:03 Dose: 20 mg Documented by: [id number] Terazosin HCl (Hytrin) 10 mg PO HS [facility] Stop: 09/16/18 21:33 Last Admin: 08/18/18 19:40 Dose: 10 mg Documented by: [id number] Admin: 08/17/18 22:58 Dose: 10 mg Documented by: [id number] Tiotropium [place] ([facility]) [facility] Stop: 09/17/18 08:59 Last Admin: 08/18/18 08:03 Dose: 1 puffs Documented by: [id number] (1) GI bleed GI bleed type/associated pathology: unspecified gastrointestinal hemorrhage type Qualified Code(s): K92.2 - Gastrointestinal hemorrhage, unspecified (2) CHF (congestive heart failure) Heart failure chronicity: acute on chronic Heart failure type: combined systolic and diastolic Qualified Code(s): I50.43 - Acute on chronic combined systolic (congestive) and diastolic (congestive) heart failure (3) Anemia Anemia type: unspecified type Qualified Code(s): D64.9 - Anemia, unspecified (4) Hyperlipidemia Hyperlipidemia type: unspecified Qualified Code(s): E78.5 - Hyperlipidemia, unspecified
--- NOTE | 2018-08-19 09:59 | Operative Report ---
Post Operative Report Pre & Post Diagnosis Operation Date: 08/18/18 10:00 Pre-Op Diagnosis: gastrointestinal bleeding, anemia Post-Op Diagnosis: Normal Findings Operation Date: 08/19/18 08:30 Pre-Op Diagnosis: GI BLEEDING,ANEMIA Post-Op Diagnosis: GI BLEEDING,ANEMIA Procedure Operation Date: 08/18/18 10:00 Actual Procedures p Esophagogastroduodenoscopy (Not Applicable) - Guanaco Marrero MD Operation Date: 08/19/18 08:30 Actual Procedures p Colonoscopy(Not Applicable) - Guanaco Marrero MD Surgeon Guanaco Marrero MD Scroll Machine Operator None Estimated Blood Loss 10 Findings See Below (Multiple colon polpys removed, clips placed, Diverticulosis, hemorrhoids) Specimens 3 Polyps Description of Procedure Colonoscopy I attest to the content of the Intraoperative Record and any orders documented therein. Any exceptions are noted below.
--- NOTE | 2018-08-19 10:26 | Anesthesiology Progress Note ---
Date of Service August 19, 2018 Anesthesia Post Procedure Vital Signs Vital Signs: Temp Pulse Pulse Pulse Resp BP BP 08/19/18 10:20 96 H 18 135/84 08/19/18 10:10 92 H 15 121/86 08/19/18 10:01 36.2 C L 88 16 139/78 08/19/18 08:40 87 16 132/84 08/19/18 08:30 83 18 124/72 08/19/18 08:20 88 16 130/75 08/19/18 08:03 94 H 18 124/74 08/19/18 04:01 36.8 C 100 H 18 08/18/18 23:21 37.4 C 82 17 08/18/18 22:30 94 H 08/18/18 19:24 103 H 08/18/18 19:01 37.2 C 104 H 159/76 H 08/18/18 15:01 36.9 C 87 18 122/71 08/18/18 15:00 37 C 94 H 20 103/68 08/18/18 14:45 36.9 C 97 H 18 115/69 08/18/18 14:31 37 C 96 H 18 114/76 08/18/18 14:16 96 H 18 123/83 08/18/18 14:15 36.5 C 97 H 20 138/78 08/18/18 14:00 36.6 C 86 18 142/76 H 08/18/18 13:11 37 C 84 16 129/73 08/18/18 11:36 77 19 104/63 08/18/18 11:35 86 17 08/18/18 11:31 88 20 110/62 08/18/18 11:30 36.5 C 90 21 08/18/18 11:26 81 20 108/58 L 08/18/18 11:25 83 87 26 H 108/58 L 08/18/18 11:21 90 24 106/78 08/18/18 11:20 84 21 08/18/18 11:18 36.5 C 85 20 08/18/18 11:15 36.6 C 85 99 H 25 H 99/56 L 99/56 L BP Pulse Ox 08/19/18 10:20 98 08/19/18 10:10 100 08/19/18 10:01 100 08/19/18 08:40 99 08/19/18 08:30 97 08/19/18 08:20 97 08/19/18 08:03 95 08/19/18 04:01 119/62 98 08/18/18 23:21 119/75 97 08/18/18 22:30 08/18/18 19:24 144/74 H 08/18/18 19:01 98 08/18/18 15:01 98 08/18/18 15:00 98 08/18/18 14:45 98 08/18/18 14:31 96 08/18/18 14:16 99 08/18/18 14:15 98 08/18/18 14:00 97 08/18/18 13:11 98 08/18/18 11:36 100 08/18/18 11:35 100 08/18/18 11:31 100 08/18/18 11:30 99 08/18/18 11:26 100 08/18/18 11:25 100 08/18/18 11:21 100 08/18/18 11:20 100 08/18/18 11:18 98 08/18/18 11:15 100 Pain Intensity Throat: Pain Intensity: 0 Notes Mental Status: alert / awake / arousable Patient Amnestic to Procedure: Yes Nausea / Vomiting: adequately controlled Pain: adequately controlled Airway Patency, RR, SpO2: stable & adequate BP & HR: stable & adequate Hydration State: stable & adequate Anesthetic Complications: no major complications apparent and Pt Satisfied with anesthetic care
--- NOTE | 2018-08-19 10:29 | GI REPORT ---
Patient Name: Avtar Magallanes Procedure Date: 08/19/2018 8:47 AM Date of : 1940 Admit Type: Inpatient Age: 77 Gender: Male Attending MD: Guanaco Marrero MD Procedure: Colonoscopy Providers: Guanaco Marrero MD Referring MD: Iveth Long Indications: Gastrointestinal bleeding, Anemia Medicines: Monitored Anesthesia Care Complications: No immediate complications. Estimated Blood Loss: Estimated blood loss: none. Procedure: Pre-Anesthesia Assessment: - Prior to the procedure, a History and Physical was performed, and patient medications and allergies were reviewed. The patient is competent. The risks and benefits of the procedure and the sedation options and risks were discussed with the patient. All questions were answered and informed consent was obtained. Patient identification and proposed procedure were verified by the physician and the nurse in the procedure room. Mental Status Examination: alert and oriented. Airway Examination: normal oropharyngeal airway and neck mobility. Respiratory Examination: clear to auscultation. CV Examination: normal. ASA Grade Assessment: IV - A patient with severe systemic disease that is a constant threat to life. After reviewing the risks and benefits, the patient was deemed in satisfactory condition to undergo the procedure. The anesthesia plan was to use monitored anesthesia care (MAC). Immediately prior to administration of medications, the patient was re-assessed for adequacy to receive sedatives. The heart rate, respiratory rate, oxygen saturations, blood pressure, adequacy of pulmonary ventilation, and response to care were monitored throughout the procedure. The physical status of the patient was re-assessed after the procedure. After I obtained informed consent, the scope was passed under direct vision. Throughout the procedure, the patient's blood pressure, pulse, and oxygen saturations were monitored continuously. The scope was introduced through the anus and advanced to the terminal ileum. The colonoscopy was performed without difficulty. The patient tolerated the procedure well. The quality of the bowel preparation was good. The terminal ileum, ileocecal valve, appendiceal orifice, and rectum were photographed. Findings: The perianal and digital rectal examinations were normal. The terminal ileum appeared normal. A 12 mm polyp was found in the ascending colon. The polyp was sessile. The polyp was removed with a saline injection-lift technique using a hot snare. Resection and retrieval were complete. Verification of patient identification for the specimen was done by the physician and nurse using the patient's name and date. A 20 mm polyp was found in the transverse colon. The polyp was sessile. The polyp was removed with a saline injection-lift technique using a hot snare. Resection and retrieval were complete. There was immediate bleeding after resection which was controlled by Epinephrine injection and clips. To close a defect after polypectomy, ten hemostatic clips were successfully placed (MR conditional). Bleeding had stopped at the end of the procedure. A 4 mm polyp was found in the descending colon. The polyp was sessile. The polyp was removed with a cold snare. Resection and retrieval were complete. Two sessile polyps were found in the descending colon. The polyps were medium in size. Resection was deferred for next colonoscopy. Scattered small and large-mouthed diverticula were found in the sigmoid colon and descending colon. There was evidence of a prior end-to-end colo-colonic anastomosis in the sigmoid colon. This was patent and was characterized by healthy appearing mucosa and an intact staple line. The anastomosis was traversed. Non-bleeding internal hemorrhoids were found during retroflexion. The hemorrhoids were small. Impression: - The examined portion of the ileum was normal. - No source of bleeding seen during colonoscopy. - One 12 mm polyp in the ascending colon, removed using injection-lift and a hot snare. Resected and retrieved. - One 20 mm polyp in the transverse colon, removed using injection-lift and a hot snare. Resected and retrieved. Clips (MR conditional) were placed. - One 4 mm polyp in the descending colon, removed with a cold snare. Resected and retrieved. - Two medium polyps in the descending colon. Resection deferred till next surveillance colonoscopy in 4 months. - Diverticulosis in the sigmoid colon and in the descending colon. - Patent end-to-end colo-colonic anastomosis, characterized by healthy appearing mucosa and an intact staple line. - Non-bleeding internal hemorrhoids. Recommendation: - [facility]. - Await pathology results. - Repeat colonoscopy in 4 months for retreatment of the remaining polyps. - Clear liquid diet for 2 days then soft diet for 5 days. - No aspirin, ibuprofen, naproxen, or other non-steroidal anti-inflammatory drugs for 5 days after polyp removal. - Hold anticoagulants for next 3 days, resume if no evidence of bleeding. - Consider VCE as OP. - Ciprofloxacine and Metronidazole for total of 7 days. Molham Abdulsamad, MD 08/19/2018 10:28:24 AM This report has been signed electronically. Note Initiated On: 08/19/2018 8:47 AM Number of Addenda: 0 I attest to the content of the Intraoperative Record and orders documented therein, exceptions below {[id number]}
[2018-08-19] MEDS: TIOTROPIUM BROMIDE 5 PUFF/90 MCG INH INH SCH (12:25)
[2018-08-19] MEDS: SIMVASTATIN 40 MG TAB PO SCH (12:27)
[2018-08-19] MEDS: LORATADINE 10 MG TAB PO SCH (12:27)
[2018-08-19] MEDS: POTASSIUM CHLORIDE 20 MEQ TABCR PO SCH ×2 (12:29→21:13)
[2018-08-19] MEDS: FUROSEMIDE 40 MG TAB PO SCH ×2 (12:29→21:14)
[2018-08-19] MEDS: FAMOTIDINE 20 MG in SYRINGE 3 ML IV SCH ×2 (12:33→21:14)
[2018-08-19] MEDS: metroNIDAZOLE 500 MG/100 ML BAG IV SCH ×2 (12:58→21:13)
[2018-08-19] MEDS: CIPROFLOXACIN 400 MG/200 ML BAG IV SCH (14:17)
[2018-08-19 15:35] LABS: Magnesium 2.4 mg/dl (1.8-2.4)
[2018-08-19] MEDS: TERAZOSIN HCL 5 MG CAP PO SCH (21:14)
[2018-08-19] MEDS: LACTATED RINGER'S 1,000 ML IV SCH (22:10)
[2018-08-20] MEDS: CIPROFLOXACIN 400 MG/200 ML BAG IV SCH ×2 (02:41→13:41)
[2018-08-20] MEDS: metroNIDAZOLE 500 MG/100 ML BAG IV SCH ×3 (05:07→20:32)
[2018-08-20 07:05] LABS: Hematocrit (blood only) 30.7 % (42-52); Hemoglobin 8.8 g/dL (14.0-18.0)
[2018-08-20 07:07] LABS: BUN Creatinine Ratio 7.3 (10-20); Calcium 8.6 mg/dl (8.5-10.1); Creatinine Clr Calc Pharmacy 62.9 ml/min; Est GFR (African American) 91.4; Est GFR (Non-African American) 78.8; Potassium 3.4 mmol/L (3.5-5.1)
[2018-08-20] MEDS: SIMVASTATIN 40 MG TAB PO SCH (07:36)
[2018-08-20] MEDS: TIOTROPIUM BROMIDE 5 PUFF/90 MCG INH INH SCH (07:36)
[2018-08-20] MEDS: FAMOTIDINE 20 MG in SYRINGE 3 ML IV SCH ×2 (07:36→20:42)
[2018-08-20] MEDS: POTASSIUM CHLORIDE 20 MEQ TABCR PO SCH ×2 (07:37→20:34)
[2018-08-20] MEDS: LORATADINE 10 MG TAB PO SCH (07:37)
[2018-08-20] MEDS: FUROSEMIDE 40 MG TAB PO SCH ×2 (07:37→20:34)
[2018-08-20] MEDS ORDERED: POTASSIUM CHLORIDE 20 MEQ TABCR PO STA (07:54)
--- NOTE | 2018-08-20 08:09 | Family Medicine Progress Note ---
Date of Service August 20, 2018 Assessment & Plan (1) GI bleed: 77 yo male was admitted on 17 August 2018 for suspected GI bleed. Anemia: -Pt presented with symptomatic anemia with complaints of fatigue. - Likely 2/2 GI bleed with component of iron deficiency anemia. - Hgb 8.8 this AM after transfusion of 2U pRBCs 2 days ago for Hgb 6.9. - Microcytosis + low iron with normal TIBC, suggests iron deficiency - Per GI recs below, video capsule endoscopy as outpt. - Continue pepcid 20 mg IV BID - Will continue to monitor. GI bleed -Hemoccult +, EGD no evidence of bleed but colonoscopy showed polyps in ascending, transverse and descending colon. -Diverticulosis also in sigmoid and descending colon, with some internal hemorrhoids noted. -No gross evidence of bleeding however. -Day 2 of clear liquid diet. Will attempt to advance tomorrow. -Day 2 of Cipro and Flagyl coverage of possible diverticulitis. -Xarelto held (Day 2). Will restart in 1 more day if no evidence of bleeding. GI Recommendation:(Appreciate recs) - Repeat colonoscopy in 4 months for retreatment of the remaining polyps. - Clear liquid diet for 2 days then soft diet for 5 days. - No aspirin, ibuprofen, naproxen, or other non-steroidal anti-inflammatory drugs for 5 days after polyp removal. - Hold anticoagulants for next 3 days, resume if no evidence of bleeding. - Consider VCE as OP. - Ciprofloxacine and Metronidazole for total of 7 days. RESOLVED/CHRONIC PROBLEMS Ventricular Tachycardia seen on cardiac monitoring -Historical dx with one episode while hospitalized -Will continue to monitor. -EKG 08/17- sinus rhythm with PVCs, 92bpm, qtc of 467 -Last echo 2018- EF 45-50% with Grade 1 diastolic dysfunction and mild MR, TR. History of Pulmonary emboli -Diagnosed with this in early 2018. -Holding Xarelto for 2 more days Hypertension, hyperlipidemia, CAD, cardiomyopathy - On home simvastatin and terazosin. - Holding home metoprolol as pressures currently well controlled 126/83 COPD - Continuing home symbicort and Spiriva. Chronic systolic CHF - Per previous discharge summary in Mar 2018, echo noted EF of 45-50%, grade 1 diastolic dysfunction. - Continue home Lasix 40 mg BID and potassium. - Euvolemic. - Will continue to monitor for signs of fluid overload -down 2.1kg today. Code status: Full code. DVT prophylaxis: SCDs currently. FEN/GI: Clear Liquids Supervising Physician Co-Signing Physician Notes I personally examined the patient and verified all rodriguez points of history and exam, discussed case, and agree with decision making with Dr Wells. feeling better, just hungry. no other acute complaints. ROS otherwise negative except for as above. GI input noted vitals noted, nad breathing unlabored no pallor or icterus GI bleeding due to anticoagulation therapy - ?small bowel source vs bleeding from now-excised polyps --> was subacute to chronic given his overall stability despite low Hgb on arrival - so either possible. now stable. advance diet and finish abx as per GI recommendations subacute PE - needs ongoing anticoagulation at this time; risk/benefit would favor continuing anticoagulation overall as long as tolerated - which makes capsule endoscopy likely to be of help to rule out ongoing bleed risk; follow Hgb closely after resuming anticoagulation acute blood loss anemia related to above, treated with transfusions. iron deficiency appears to be from this - replace and follow over time otherwise as above Subjective Mr. Magallanes was resting comfortably in bed sleeping. Review of Systems Other (sleeping soundly.) Physical Exam Vital Signs (Past 24 Hours): Last Vital Signs Temp 36.5 C 08/20/18 07:50 Pulse 78 08/20/18 07:50 Resp 20 08/20/18 07:50 BP 102/67 08/20/18 07:50 Pulse Ox 97 08/20/18 07:50 General: Resting comfortably in bed on side sleeping soundly. HEENT: NC/AT Chest: Nontender to palpation. CV: RRR, Normal s1, s2. Resp: Breath sounds decreased but clear bilaterally, no increased effort of breathing. Abdomen: Protuberant, nontender. No guarding. Extremities: No edema in lower extremities bilaterally. Results & Data Laboratory Results Laboratory Results - last 24 hr 08/19/18 08/19/18 08/20/18 06:26 06:26 06:17 Hgb 8.8 L Hct 30.7 L Sodium Potassium Chloride Carbon Dioxide Anion Gap BUN Creatinine Est Cr Clr Drug Dosing Est GFR ( Amer) Est GFR (Non-Af Amer) BUN/Creatinine Ratio Glucose Calcium Magnesium 2.4 Cancelled 08/20/18 06:17 Hgb Hct Sodium 143 Potassium 3.4 L Chloride 109 H Carbon Dioxide 26 Anion Gap 8.0 BUN 7 Creatinine 0.92 Est Cr Clr Drug Dosing 62.9 Est GFR ( Amer) 91.4 Est GFR (Non-Af Amer) 78.8 BUN/Creatinine Ratio 7.3 L Glucose 89 Calcium 8.6 Magnesium Medications Administered Home Medications loratadine 10 mg PO QAM 01/21/18 [History Confirmed 08/17/18] ranitidine HCl 150 mg PO QAM 01/21/18 [History Confirmed 08/17/18] simvastatin 20 mg PO DAILY 01/21/18 [History Confirmed 08/17/18] terazosin 10 mg PO HS 01/21/18 [History Confirmed 08/17/18] Spiriva with HandiHaler 18 mcg INHALATION QAM #1 inha 02/09/18 [Rx Confirmed 08/17/18] Symbicort 2 puff INHALATION Q4H PRN #6 gm 02/09/18 [Rx Confirmed 08/17/18] potassium chloride ER 20 mEq tablet,extended release(part/cryst) 20 meq PO BID 02/23/18 [History Confirmed 08/17/18] rivaroxaban 20 mg tablet 20 mg PO QAM 02/23/18 [History Confirmed 08/17/18] metoprolol tartrate 25 mg PO BID #60 tab 03/14/18 [Rx Confirmed 08/17/18] furosemide [Lasix] 40 mg PO BID 08/17/18 [History Confirmed 08/17/18] lisinopril 0 mg PO QAM 08/17/18 [History Confirmed 08/17/18] Active Medications Acetaminophen (Tylenol) 650 mg PO Q4H PRN PRN Reason: Pain or Fever Stop: 09/16/18 21:33 Budesonide/Formoterol Fumarate (Symbicort 160mcg/4.5mcg) 2 puffs INH Q4H PRN PRN Reason: sob Stop: 09/16/18 21:33 Furosemide (Lasix) 40 mg PO BID [facility] Stop: 09/16/18 21:33 Last Admin: 08/20/18 07:37 Dose: 40 mg Documented by: Famotidine 20 mg/ Syringe 5 mls @ 2.5 mls/min IV BID [facility] Stop: 09/17/18 08:59 Last Admin: 08/20/18 07:36 Dose: 2.5 mls/min Documented by: Ciprofloxacin (Cipro) 400 mg in 200 mls @ 100 mls/hr IV Q12H [facility] Stop: 08/29/18 13:59 Last Infusion: 08/20/18 05:07 Dose: Infused Documented by: Metronidazole (Flagyl) 500 mg in 100 mls @ 100 mls/hr IV Q8H [facility] Stop: 08/29/18 12:29 Last Infusion: 08/20/18 06:15 Dose: Infused Documented by: Loratadine (Claritin) 10 mg PO QAM [facility] Stop: 09/17/18 08:59 Last Admin: 08/20/18 07:37 Dose: 10 mg Documented by: Ondansetron HCl (Zofran) 4 mg IV Q6H PRN PRN Reason: Nausea Stop: 09/16/18 21:33 Potassium Chloride (Klor-Con M20) 20 meq PO BID [facility] Stop: 09/16/18 21:33 Last Admin: 08/20/18 07:37 Dose: 20 meq Documented by: Ranitidine HCl (Zantac) 150 mg PO QAM [facility] Stop: 09/17/18 08:59 Last Admin: 08/20/18 07:37 Dose: 150 mg Documented by: Simvastatin (Zocor) 20 mg PO DAILY [facility] Stop: 09/17/18 08:59 Last Admin: 08/20/18 07:36 Dose: 20 mg Documented by: Terazosin HCl (Hytrin) 10 mg PO HS [facility] Stop: 09/16/18 21:33 Last Admin: 08/19/18 21:14 Dose: 10 mg Documented by: Tiotropium [place] (Spiriva) 1 puffs INH QAM [facility] Stop: 09/17/18 08:59 Last Admin: 08/20/18 07:36 Dose: 1 puffs Documented by: (1) GI bleed GI bleed type/associated pathology: unspecified gastrointestinal hemorrhage type Qualified Code(s): K92.2 - Gastrointestinal hemorrhage, unspecified
--- NOTE | 2018-08-20 08:36 | Surgery Progress Note ---
Date of Service August 20, 2018 Assessment & Plan (1) GI bleed: 08/20/2018 Patient seen and examined with Dr. Addison. Results of EGD and colonoscopy reviewed. No evidence of bleeding appreciated during EGD. Multiple polyps biopsied and removed during colonoscopy. No evidence of bleeding appreciated during colonoscopy. GI plans to repeat colonoscopy as outpatient for retreatment of remaining polyps. Hold a/c for 3 days and then may resume if no further evidence of bleeding. Patient tolerating clear liquid diet. Denies abdominal pain. Hgb 8.8; Hct 30.7 this AM. No surgical intervention indicated. 08/18/2018 77 year old male with T3N1 rectal cancer s/p LAR 6 months ago, now with GI bleed. EGD today, colonoscopy tomorrow. If no source then needs imaging. Transfusion today. No emergent surgical management indicated Await results of EGD and colonoscopy hold a/c surgery will follow call with questions or concerns Supervising Physician Co-Signing Physician Notes pnt S&E, agree with above. egd and colonoscopy negative for active bleeding. I do not believe that his anemia was from GI source. May need workup as outpnt. surgery will sign off. Subjective Patient sitting at bedside this AM. Clears for breakfast this AM. Reports that he is hungry. Denies pain, denies nausea or vomiting. Patient had multiple polyps removed yesterday during Colonoscopy. Physical Exam Vital Signs (Past 24 Hours): Last Vital Signs Temp 36.5 C 08/20/18 07:50 Pulse 78 08/20/18 07:50 Resp 20 08/20/18 07:50 BP 102/67 08/20/18 07:50 Pulse Ox 97 08/20/18 07:50 Gastrointestinal (Abdomen): Percussion/Palpation: abdomen soft; abdomen nontender (1) GI bleed GI bleed type/associated pathology: unspecified gastrointestinal hemorrhage type Qualified Code(s): K92.2 - Gastrointestinal hemorrhage, unspecified
--- NOTE | 2018-08-20 09:44 | Gastroenterology Progress Note ---
Date of Service August 20, 2018 Assessment & Plan (1) Anemia: No overt ongoing GI bleeding and Hb has remained stable post transfusion. Will continue to monitor. One more day of clear liquids po before advancing to full tomorrow and then soft food. Please do not restart Xeralto prior to 08/23/18 (Per Dr. Marrero because some bleeding during polypectomy). Will consider OP VCE Will need repeat colonoscopy in one year due to large polyps. Dr. Marrero has placed him on a recall list. Attg add: I interviewed and examined pt, reviewed arti and labs. Pt with stable hgb, no overt bleeding. OK to adv diet as tolerated. WIll sign off, please reconsult as needed. (2) Positive occult stool blood test: Subjective Mr. Avtar Magallanes is a 77 yr old male with a hx of stage I colon cancer s/p left hemicolectomy last year, Hx of PE on Xarelto (being held), CAD, cardiomyopathy, CHF, COPD, Hx of CDI, presented with fatigue and admitted for symptomatic anemia on 08/17/18. He also reported "green BMs" for about a month which resolved about a week ago. He denies any abdominal pain. Hb was 7.6 on arrival, decreased to 6.9, received 2 units of RBCs and Hb yesterday 9.0, today, 8.8. BUN has been normal. EGD 08/18 and colonoscopy 08/19 w/o clear cause of anemia but there were large polyps and one bleed during removal. He has not had any BMs since prior to colonoscopy. He remains hemodynamically stable. Appetite is good, asking for food. Denies any abdominal pain. d Constitutional: + fatigue (much improved after blood transfusion); no fever and no chills Respiratory: no cough, no dyspnea and no wheezing Cardiovascular: + edema (chronic lower leg); no chest pain and no syncope Gastrointestinal: as per Subjective / HPI; no abdominal pain, no heartburn, no nausea, no vomiting, no constipation, no diarrhea/loose stools, no blood in stools and no melena Musculoskeletal: no problem reported Integumentary: no rash and no skin ulcer Neurologic: no lack of coordination, no seizure-like activity, no confusion and no memory loss Psychiatric: no problem reported Physical Exam Vital Signs (Past 24 Hours): Last Vital Signs Temp 36.5 C 04/15/19 07:50 Pulse 78 08/20/18 07:50 Resp 20 08/20/18 07:50 BP 102/67 08/20/18 07:50 Pulse Ox 97 08/20/18 07:50 Constitutional: WD/WN, vitals as above + obese Eyes: PERRL, conjunctivae normal, anicteric sclerae ENMT: external ear and nose normal, oropharynx normal Neck: trachea midline, no thyromegaly Respiratory: normal respiratory effort, lungs clear to auscultation Cardiovascular: RRR, no murmur, no edema Gastrointestinal (Abdomen): normal bowel sounds, soft, nontender, no hepatosplenomegaly Skin: no rashes, warm and dry Neurologic: PERRL, EOMI, accommodation nl, no face palsy, no dysarthria Psychiatric: A+Ox3, euthymic affect Lymphatic: no cervical or axillary lymphadenopathy Results & Data Laboratory Results Hb 8.8 BUN 7 (1) Anemia Anemia type: unspecified type Qualified Code(s): D64.9 - Anemia, unspecified
--- NOTE | 2018-08-20 18:35 | Medical Student Progress Note ---
Date of Service August 20, 2018 Mr. Magallanes is a 77-year-old male with a pmhx of colon cancer s/p hemicholectomy (January 2018), HTN, HLD, CAD, CHF, COPD in hospital day 3 for anemia secondary to a GI bleed of an unidentified source. No acute events over night. Today, he reports that he continues to feel tired but his fatigue has lessened somewhat. He has had no bloody stool since admission to the ED on 08/17 when his Xeralto (PE diagnosed in 2018) was also stopped. He is hungry and is hoping to start soft foods soon. Assessment & Plan (1) GI bleed: Anemia -Pt is currently not showing many signs of anemia at this this time. He does have fatigue, but has no SOB, rapid heart rate, dizziness, or restless legs. Last Hgb reading was 8.8 s/p 2 units of packed red blood cells. No transfusion necessary at this time. Will continue to monitor CBCs. -Iron is low at 16 and transferrin saturation is 4. Begin oral iron-ferrous gluconate with Vitamin C. Can give every other day to reduce constipation. GI bleed Pt was hemoocult positive in the ED on 08/17. Upper endoscopy and colonoscopy did not show signs of acute bleeding. Colonoscopy did show several polyps that were resected. It is possible that bleeding was coming from polyps and stopped once he got to the ED and was taken off Xeralto. Bleeding could also be from the small bowel. -Recommend VCG as outpatient to check if small bowel is source - Continue pepcid 20 mg IV bid -Hold Xeralto until tomorrow if continues to show no signs of bleeding -Refrain from NSAID use -Will advance diet tomorrow if no bleeding -Repeat colonoscopy in 4 months GI bleed type/associated pathology: unspecified gastrointestinal hemorrhage type Qualified Code(s): K92.2 - Gastrointestinal hemorrhage, unspecified (2) Anemia: Anemia type: unspecified type Qualified Code(s): D64.9 - Anemia, unspecified Supervising Attestation I personally examined the patient and verified all rodriguez points of history and exam, discussed case, and agree with decision making with Martin Lara MS2. feeling better, just hungry. no other acute complaints. ROS otherwise negative except for as above. GI input noted vitals noted, nad breathing unlabored no pallor or icterus GI bleeding due to anticoagulation therapy - ?small bowel source vs bleeding from now-excised polyps --> was subacute to chronic given his overall stability despite low Hgb on arrival - so either possible. now stable. advance diet and finish abx as per GI recommendations subacute PE - needs ongoing anticoagulation at this time; risk/benefit would favor continuing anticoagulation overall as long as tolerated - which makes capsule endoscopy likely to be of help to rule out ongoing bleed risk; follow Hgb closely after resuming anticoagulation acute blood loss anemia related to above, treated with transfusions. iron deficiency appears to be from this - replace and follow over time otherwise as above Subjective Review of Systems All systems reviewed & are unremarkable except as noted in HPI & below Physical Exam Vital Signs (Past 24 Hours): Last Vital Signs Temp 36.4 C L 08/20/18 15:00 Pulse 91 H 08/20/18 15:03 Resp 18 08/20/18 15:00 BP 148/78 H 08/20/18 15:00 Pulse Ox 96 08/20/18 15:00 Constitutional: WD/WN, vitals as above Eyes: PERRL, conjunctivae normal, anicteric sclerae ENMT: external ear and nose normal, oropharynx normal Respiratory: normal respiratory effort, lungs clear to auscultation Cardiovascular: RRR, no murmur, no edema Gastrointestinal (Abdomen): normal bowel sounds, soft, nontender, no hepatosplenomegaly Skin: no rashes, warm and dry normal turgor Psychiatric: A+Ox3, euthymic affect
[2018-08-20] MEDS: TERAZOSIN HCL 5 MG CAP PO SCH (20:33)
[2018-08-21] MEDS: CIPROFLOXACIN 400 MG/200 ML BAG IV SCH ×2 (01:52→13:31)
[2018-08-21] MEDS: metroNIDAZOLE 500 MG/100 ML BAG IV SCH ×2 (04:13→12:00)
[2018-08-21 08:27] LABS: Hematocrit (blood only) 31.4 % (42-52); Mean Corpuscular Hgb Conc 28.7 g/dL (32-36); Mean Corpuscular Volume 68.6 fL (80-100); Platelet Count 235 K/uL (130-400); RDW Coefficient of Variation 21.1 % (11.5-14.5); RDW Standard Deviation 51.9 fL (36.4-46.3); Red Blood Count 4.58 M/uL (4.7-6.1); White Blood Count 6.48 K/uL (4.8-10.8)
[2018-08-21 08:42] LABS: BUN Creatinine Ratio 5.3 (10-20); Calcium 9.1 mg/dl (8.5-10.1); Creatinine Clr Calc Pharmacy 61.6 ml/min; Est GFR (Non-African American) 76.8; Potassium 3.1 mmol/L (3.5-5.1)
[2018-08-21 08:56] LABS: Anisocytosis Present; Basophils # (auto) 0.02 K/uL (0-0.2); Basophils % (auto) 0.3 %; Eosinophils # (auto) 0.14 K/uL (0-0.5); Eosinophils % (auto) 2.2 %; Hypochromasia Present; Immature Granulocytes # (auto) 0.01 K/uL (0.00-0.02); Immature Granulocytes % (auto) 0.2 %; Lymphocytes # (auto) 1.26 K/uL (1.2-3.4); Lymphocytes % (auto) 19.4 %; Microcytosis Present; Monocytes # (auto) 1.01 K/uL (0.11-0.59); Monocytes % (auto) 15.6 %; Neutrophils # (auto) 4.04 K/uL (1.4-6.5); Neutrophils % (auto) 62.3 %; Poikilocytosis Present
[2018-08-21] MEDS: FAMOTIDINE 20 MG in SYRINGE 3 ML IV SCH (09:13)
[2018-08-21] MEDS: LORATADINE 10 MG TAB PO SCH (09:13)
[2018-08-21] MEDS: SIMVASTATIN 40 MG TAB PO SCH (09:14)
[2018-08-21] MEDS: POTASSIUM CHLORIDE 20 MEQ TABCR PO SCH (09:14)
[2018-08-21] MEDS: TIOTROPIUM BROMIDE 5 PUFF/90 MCG INH INH SCH (09:15)
[2018-08-21] MEDS: FUROSEMIDE 40 MG TAB PO SCH (09:15)
[2018-08-21] MEDS ORDERED: FERROUS SULFATE 325 MG TAB PO SCH (10:30)
[2018-08-21] MEDS: POTASSIUM CHLORIDE / WTR 10 MEQ/100 ML PLCT IV SCH ×2 (10:54→12:10)
--- NOTE | 2018-08-21 10:59 | Gastroenterology Progress Note ---
Date of Service August 21, 2018 Assessment & Plan (1) Anemia: Because bleeding during removal of large polypectomy: no NSAIDs for 5 days, may restart Xarelto 3 days after colonoscopy (Monday). Agree with having advanced the diet today. Will need OP colonoscopy in one year. Will plan for OP VCE per Dr. Loyola's recommendation yesterday. Our office will contact the pt to arrange. GI will sign off. Please notify us if questions or new/worrisome GI issues. Attg add: I interviewed and examined pt, reviewed chart and labs. Pt with on further bleeding. OK for d.c. Present on Admission?: Yes Subjective Mr. Avtar Magallanes is a 77 yr old male with a hx of stage I colon cancer s/p left hemicolectomy last year, Hx of PE on Xarelto (being held), CAD, cardiomyopathy, CHF, COPD, Hx of CDI, presented with fatigue and admitted for symptomatic anemia on 08/17/18. He also reported "green BMs" for about a month which resolved about a week ago. He denies any abdominal pain. Hb was 7.6 on arrival, decreased to 6.9, received 2 units of RBCs and Hb yesterday 8.8, today, 8.8 again. BUN has been normal. EGD 08/18 and colonoscopy 08/19 w/o clear cause of anemia but there were large polyps and one bleed during removal. Passed one green BM this morning. Constitutional: + fatigue (much improved after blood transfusion); no fever and no chills Cardiovascular: + edema (chronic lower leg); no chest pain and no syncope Gastrointestinal: as per Subjective / HPI; no abdominal pain, no heartburn, no nausea, no vomiting, no constipation, no diarrhea/loose stools, no blood in stools and no melena Physical Exam Vital Signs (Past 24 Hours): Last Vital Signs Temp 36.8 C 08/21/18 07:17 Pulse 81 08/21/18 09:12 Resp 20 08/21/18 07:17 BP 106/68 08/21/18 09:12 Pulse Ox 95 08/21/18 07:17 Constitutional: WD/WN, vitals as above + obese Eyes: PERRL, conjunctivae normal, anicteric sclerae ENMT: external ear and nose normal, oropharynx normal Neck: trachea midline, no thyromegaly Respiratory: normal respiratory effort, lungs clear to auscultation Cardiovascular: RRR, no murmur, no edema Gastrointestinal (Abdomen): normal bowel sounds, soft, nontender, no hepatosplenomegaly Skin: no rashes, warm and dry Neurologic: PERRL, EOMI, accommodation nl, no face palsy, no dysarthria Psychiatric: A+Ox3, euthymic affect Lymphatic: no cervical or axillary lymphadenopathy (1) Anemia Anemia type: unspecified type Qualified Code(s): D64.9 - Anemia, unspecified
--- NOTE | 2018-08-21 11:00 | Medical Student Progress Note ---
Date of Service August 21, 2018 Patient is doing well today. No acute episodes overnight. #Anemia-He reports sleeping well and feeling much less fatigued. No heart palpitations, rapid heart rate, or chest pain. He is not SOB. He says that he was ambulating with a walker and hadn't felt this energized in a while. No dizziness or weakness. He reports that he does feel a tingling sensation from his abdomen to his legs at times for the past week. It is not extremely bothersome or painful but notices it. He is quite talkative today recalling several childhood memories. Overall he reports that he is "inspired to get out of here". He was also eating a sandwich and was very happy to finally be eating foods. He has increased appetite. #GI bleed-He reports that this morning he had liquidy green stool with no evidence of blood. He has not had any bleeding since admission. He understands that the source of his bleeding is still unclear. He wonders when he can restart his Xeralto and next steps for if bleeding in small bowel is found through VCE. Assessment & Plan (1) GI bleed: GI bleed Pt was hemoocult positive in the ED on 08/17. Upper endoscopy and colonoscopy did not show signs of acute bleeding. Colonoscopy did show several polyps that were resected. It is possible that bleeding was coming from polyps and stopped once he got to the ED and was taken off Xeralto. Bleeding could also be from the small bowel. -Recommend VCG as outpatient to check if small bowel is source. Patient is amenable to getting this done. - Continue Ranitidine 150 mg PO and Pepcid 20 mg IV bid? -Restart Xeralto -Refrain from NSAID use -Can advance to soft diet -Repeat colonoscopy in 4 months GI bleed type/associated pathology: unspecified gastrointestinal hemorrhage type Qualified Code(s): K92.2 - Gastrointestinal hemorrhage, unspecified (2) Anemia: Anemia -Pt is currently asymptomatic when it comes to his anemia and trending upward. Today's Hgb reading was 9 today compared to 8.8 yeesterday. On 08/18, iron was low at 16 and transferrin saturation is 4. -Begin oral iron-ferrous gluconate 325mg PO qAM with Vitamin C. Can give every other day if constipation sx. Can continue in the outpatient setting. Anemia type: unspecified type Qualified Code(s): D64.9 - Anemia, unspecified (3) Hypokalemia: Pt's potassium today was 3.1. Increase oral iron to ? mg and can resume as outpatient. Supervising Attestation I personally examined the patient and verified all rodriguez points of history and exam, discussed case, and agree with decision making with Dr Wells. feeling better, just hungry. no other acute complaints. ROS otherwise negative except for as above. GI input noted vitals noted, nad breathing unlabored no pallor or icterus GI bleeding due to anticoagulation therapy - ?small bowel source vs bleeding from now-excised polyps --> was subacute to chronic given his overall stability despite low Hgb on arrival - so either possible. now stable. advance diet and finish abx as per GI recommendations subacute PE - needs ongoing anticoagulation at this time; risk/benefit would favor continuing anticoagulation overall as long as tolerated - which makes capsule endoscopy likely to be of help to rule out ongoing bleed risk; follow Hgb closely after resuming anticoagulation acute blood loss anemia related to above, treated with transfusions. iron deficiency appears to be from this - replace and follow over time otherwise as above Physical Exam Vital Signs (Past 24 Hours): Last Vital Signs Temp 36.8 C 08/21/18 07:17 Pulse 81 08/21/18 09:12 Resp 20 08/21/18 07:17 BP 106/68 08/21/18 09:12 Pulse Ox 95 08/21/18 07:17 Constitutional: WD/WN, vitals as above Eyes: PERRL, conjunctivae normal, anicteric sclerae ENMT: external ear and nose normal, oropharynx normal Respiratory: normal respiratory effort, lungs clear to auscultation Cardiovascular: RRR, no murmur, no edema Gastrointestinal (Abdomen): normal bowel sounds, soft, nontender, no hepatosplenomegaly Skin: no rashes, warm and dry normal turgor Psychiatric: A+Ox3, euthymic affect
[2018-08-21] MEDS ORDERED: POTASSIUM CHLORIDE 20 MEQ TABCR PO STA (12:11)
--- NOTE | 2018-08-21 13:57 | Discharge Summary ---
Date of Service August 21, 2018 Admission HPI Per Admitting Provider 77[facility]year-old [facility] (7.2). Patient notes the following ongoing issues: - Says that he felt generalized weakness progressively over the past month. He denies any vomiting or diarrhea, any black or bloody stools, but says that sometimes the stool is green. - Regarding getting the above labs, he says that he has been seeing an oncologist regularly ever since his diagnosis of colon cancer this past fall 2017. Since last visit was about 3 months ago and that there were no particular changes to his treatment plan. He denies ever being on chemotherapy or having r adiation. He does say that he is lost about 60 pounds since his surgery in January 2018. - Says that he has been on Xarelto since the diagnosis of his pulmonary embolism roughly around May or June of this year. - Says that he gets occasional shooting pains that began in his abdomen and chew down both of his legs, lasting for perhaps a second or so. - Says that he gets occasional right flank pain that he thinks might be a kidney stone, though he does not recall ever having kidney stone. He says he does not have this pain right now. - Says that he gets some left-sided "lung pain" within his chest only when he reaches forward for something. He is not sure when this started. He denies any baseline chest pain or shortness of breath. - Says that he gets bilateral leg cramps at night. Past medical history includes hypertension, hyperlipidemia, CAD, cardiomyopathy, COPD, congestive heart failure, GERD, arthritis, morbid obesity, colon cancer. Past surgical history includes low anterior resection with primary re- anastomosis of colon cancer January 2018, tonsillectomy/adenoidectomy, appendectomy. Social history includes history of 15 pack year smoking quitting smoking about 40 years ago, denies alcohol use. Lives at home with his . Admission Exam Per Admitting Provider GENERAL: Awake, alert, well-appearing, in no acute distress HENT: Normocephalic, atraumatic. Oropharynx unremarkable. EYES: Normal conjunctiva. Sclera non-icteric. NECK: Inspection normal. Non-tender. Supple and full ROM. No nuchal rigidity. CARDIAC: +S1S2 RRR with some PVCs, 2/6 systolic murmurs. RESPIRATORY: Clear to auscultation. No wheezes or rales. Normal respiratory effort. GI: +BS, soft, non-distended but large abdomen at baseline. No tenderness to palpation. No rebound or guarding. No appreciable masses. [Per ED note, heme positive stool.] EXTREMITIES: No calf tenderness. +1 bilateral pretibial edema. NEURO: Decreased sensation over bilateral lower extremities from the knees distally. Principal Diagnosis GI Bleed Anemia Discharge Exam General: Sitting up in bed, comfortable. HEENT: NC/AT, EOM grossly intact. Chest: Nontender to palpation. CV: RRR, Normal s1, s2. Resp: Breath sounds decreased but clear bilaterally, no increased effort of breathing. Abdomen: Protuberant, nontender. No guarding. Extremities: Trace edema in dependent lower extremities bilaterally. Discharge Data Allergies Allergy/AdvReac Type Severity Reaction Status Date / Time Penicillins Allergy Mild Unknown Verified 08/17/18 17:50 Sulfa (Sulfonamide Allergy Mild Unknown Verified 08/17/18 17:50 Antibiotics) ubidecarenone AdvReac Intermediate BLOOD IN Verified 08/17/18 17:50 STOOL quetiapine AdvReac Mild Hallucinati Unverified 08/17/18 18:08 ons Consultations 08/17/18 18:59 ED Decision to Admit Stat 08/17/18 21:34 Consult Gastroenterology Routine Consult General Surgery Routine Procedures Performed Operation Date: 08/18/18 10:00 Actual Procedures p Esophagogastroduodenoscopy(Not Applicable) - Guanaco Marrero MD Operation Date: 08/19/18 08:30 Actual Procedures p Colonoscopy(Not Applicable) - Guanaco Marrero MD Hospital Course (1) GI bleed: Mr. Magallanes is a 77 yo male with PMHx significant for colon/rectal cancer s/p hemicolectomy with anastomosis in January 2018 who was admitted on 17 August 2018 for suspected GI bleed. Discharged to home with home health services on August 21, 2018. GI bleed -Hemoccult + in the ED, EGD showed no evidence of bleed but colonoscopy showed polyps in ascending, transverse and descending colon. -Colonoscopy also showed diverticulosis in sigmoid and descending colon, with some internal hemorrhoids noted. -No gross evidence of bleeding seen but hospitalist team suspicious that prior bleeding was secondary to polyps/diverticulosis while on anticoagulation. -Xarelto held while hospitalized upon admission and pt advised upon discharge to restart on August 23 2018. -Diet advanced from NPO to clear liquids to a soft diet while hospitalized. A dvised to continue soft diet upon discharge. -Received 2 days worth of IV Cipro and Flagyl coverage while hospitalized. Discharged with 5 days of PO Flagyl 500mg TID, Cipro 500mg BID. GI Recommendations while hospitalized are below: - Repeat colonoscopy in 4 months for retreatment of the remaining polyps. - No aspirin, ibuprofen, naproxen, or other non-steroidal anti-inflammatory drugs for 5 days after polyp removal. - Hold anticoagulants for next 3 days, resume if no evidence of bleeding. - Consider VCE as OP. - Ciprofloxacine and Metronidazole for total of 7 days. Anemia: -Pt presented with symptomatic anemia with complaints of fatigue. -Likely 2/2 GI bleed with component of iron deficiency anemia. -Pt received PO iron while hospitalized and discharged with PO ferrous gluconate. -Received 2units pRBCs during a blood transfusion for Hgb of 6.9. -Hgb stable at 9 on discharge. -Also noted on CBC was microcytosis + low iron with normal TIBC, suggests iron deficiency. -Pt discharged with prescription for repeat CBC check on Monday and advised to follow up with PCP for continued monitoring. RESOLVED/CHRONIC PROBLEMS Ventricular Tachycardia seen on cardiac monitoring -Historical dx with one episode while hospitalized -EKG 08/17- sinus rhythm with PVCs, 92bpm, qtc of 467 -Last echo 2017- EF 45-50% with Grade 1 diastolic dysfunction and mild MR, TR. History of Pulmonary emboli -Diagnosed with this in early 2018. -Xarelto held while hospitalized. -Advised to restart on Monday after discharge. Hypertension, hyperlipidemia, CAD, cardiomyopathy - On home simvastatin and terazosin while hospitalized. - Held home metoprolol as pressures were well controlled. COPD - Continued home symbicort and Spiriva. Chronic systolic CHF - Per previous discharge summary in Mar 2018, echo noted EF of 45-50%, grade 1 diastolic dysfunction. - Continued home Lasix 40 mg BID and potassium. - Was Euvolemic. - Was monitored for signs of fluid overload. Total Time Total Time Spent Total Time Spent (In Minutes): <30 Discharge Plan Discharge Items Patient Disposition: Home - Home Health Services Reason For Visit: GI BLEEDING,ANEMIA Discharge Diagnosis: GI Bleed Anemia Discharge Goals: Decrease discomfort, Improve disease control and Improve function Activity: Per 'Additional Instructions' section Non-emergency contact: Primary Care Provider Call non-emergency contact if: your symptoms worsen Follow-up/Referrals: Alfredo Clark M.D. [Primary Care Provider] - (Please, follow up at [facility] in [place] with Dr. Clark. *His office is aware of your hospitalization and nurse is to call you with appointment information. If you don't hear from the clinic within 2 days of discharge from the hospital, call the clinic at [phone] ext [phone].) Diet: Heart Healthy Addtl Provider Instructions: You were admitted because your hemoglobin was very low causing you to have an anemia, likely because you were bleeding in your GI tract. GI Bleed -A colonoscopy was done while hospitalized and showed that you have polyps in your colon, as well as diverticulosis and internal hemorrhoids. -An EGD was also done which showed NO bleeding in the upper parts of your GI tract. -Please follow up with your claims director in FOUR (4) months for a repeat colonoscopy and a possible video capsule endoscopy. The office will call you to set the video capsule endoscopy appointment. -Please stop taking your blood thinner for now and restart it on Monday. -Please followup with your primary care provider on August 24 2018 for a blood count check. Take the paper prescription with you. -Please try to avoid using aspirin, ibuprofen, naproxen for another 2-3 days as your gut heals from removing the polyps. -Please continue taking your antibiotics for another 4 days. -You can eat solid food, however just ensure that it is soft at least for the next week or so. -Please followup with your primary care provider in the next week. Anemia -You have an anemia that could be caused by blood loss due to you GI bleed as well as iron deficiency anemia. -Please continue to take iron tablets at home to help with this. You can get this over the counter from any drugstore pharmacy and we gave you a prescription for it as well. -Please followup with your primary care provider in the next week so that this can be monitored. Prescriptions: New ciprofloxacin HCl 500 mg tablet 500 mg PO Q12H 5 Days Qty: 10 RF: 0 metronidazole 500 mg tablet 500 mg PO TID 5 Days Qty: 15 RF: 0 ferrous gluconate 324 mg (38 mg iron) tablet 324 mg PO DAILY 30 Days Qty: 30 RF: 0 Continued potassium chloride [Klor-Con M20] 20 mEq tablet,ER particles/crystals 20 meq PO BID RF: 0 simvastatin 40 mg Tablet 20 mg PO DAILY RF: 0 ranitidine HCl 150 mg Tablet 150 mg PO QAM RF: 0 terazosin 10 mg Capsule 10 mg PO HS RF: 0 loratadine 10 mg Tablet 10 mg PO QAM RF: 0 Spiriva with HandiHaler 18 mcg Capsule, W/Inhalation Device 18 mcg Inhalation QAM Qty: 1 RF: 0 Symbicort 160-4.5 mcg/actuation Hfa Aerosol Inhaler 2 puff Inhalation Q4H PRN (Reason: sob) Qty: 6 RF: 0 furosemide [Lasix] 40 mg tablet 40 mg PO BID RF: 0 lisinopril 2.5 mg Tablet PO QAM RF: 0 metoprolol tartrate 50 mg Tablet 25 mg PO BID Qty: 60 RF: 0 Discontinued rivaroxaban [Xarelto] 20 mg tablet 20 mg PO QAM RF: 0 Stand-Alone Forms: [facility] [employer] [facility]/Other Patient Handouts: Bleeding Gastrointestinal, Anemia Discharge Orders: Discharge Order (Routine); Ordered 08/21/18 Ordered By: Valeria Wells Admission Data Admit Date/Time: 08/17/18 20:38 Attending Provider: Joaquin Trejo Admit Provider: Jovani Daley Primary Care Provider: Alfredo Clark Other Providers: Iveth Long ; Leonora Dee ; Guanaco Marrero ; Navi Addison Service: Medical Other Interventions: Discharge Summary Assessment (RN) Last Done: 08/21/18 14:22 DC Date/Time DO NOT enter until pt leaves facility: 08/21/18 15:58 Supervising Physician Co-Signing Physician Notes I personally examined the patient and verified all rodriguez points of history and exam, discussed case, and agree with decision making with Dr Wells. feeling better wants to go home. eating well. Explained plan, patient expressed good understanding and asked excellent questions. vitals noted, nad breathing unlabored no pallor or icterus GI bleeding due to anticoagulation therapy - ?small bowel source vs bleeding from now-excised polyps --> was subacute to chronic given his overall stability despite low Hgb on arrival - so either possible. now stable. finish abx as per GI recommendations, resume anticoagulation on the per GI recommendations. Capsule endoscopy once it can be arranged. Continue to follow hemoglobin, next check will be on the . subacute PE - needs ongoing anticoagulation at this time; risk/benefit would favor continuing anticoagulation overall as long as tolerated - which makes capsule endoscopy likely to be of help to rule out ongoing bleed risk; follow Hgb closely after resuming anticoagulation (anticoagulation to be resumed on the , next hemoglobin to be checked on the , would recommend a weekly check for the near future) acute blood loss anemia related to above, treated with transfusions. iron deficiency appears to be from this - replace and follow over timefollow hemoglobin as above, repeat iron studies in 2-3 months. otherwise as above stable for home
== END 2018-08-21 15:58 | disposition home health service (06) | DRG 813 ==
LOC: ED 17:22 → 2S 20:38 → SUATTDRO 20:38 → 2S 21:05 → 2N 08-20 19:40

== ENCOUNTER 2019-02-12 07:44 | Inpatient (IN) ==
--- NOTE | 2019-02-12 08:21 | XRay Report ---
XR chest 1V portable CLINICAL HISTORY: sob COMPARISON STUDY: 01/23/2019 FINDINGS: The heart remains enlarged. There is a left-sided A-Port catheter unchanged in position. Th ere is no focal pulmonary consolidation. There are no pleural effusions. There is equivocal mild pulm onary venous hypertension.[ IMPRESSION: Cardiomegaly and equivocal mild pulmonary venous hypertension. No evidence of focal pulmo nary consolidation Electronically signed by: Elmo Kim M.D. 02/12/2019 8:20 AM
[2019-02-12 08:57] LABS: Eosinophils # (auto) 0.02 K/uL (0-0.5); Eosinophils % (auto) 0.4 %; Hematocrit (blood only) 34.4 % (42-52); Hemoglobin 11.3 g/dL (14.0-18.0); Immature Granulocytes # (auto) 0.01 K/uL (0.00-0.02); Immature Granulocytes % (auto) 0.2 %; Lymphocytes # (auto) 0.38 K/uL (1.2-3.4); Lymphocytes % (auto) 8.4 %; Mean Corpuscular Hemoglobin 30.7 pg (25-34); Mean Corpuscular Hgb Conc 32.8 g/dL (32-36); Mean Corpuscular Volume 93.5 fL (80-100); Mean Platelet Volume 9.6 fL (7.4-10.4); Monocytes # (auto) 1.11 K/uL (0.11-0.59); Monocytes % (auto) 24.6 %; Neutrophils % (auto) 66.4 %; Platelet Count 149 K/uL (130-400); RDW Coefficient of Variation 15.3 % (11.5-14.5); RDW Standard Deviation 50.6 fL (36.4-46.3); Red Blood Count 3.68 M/uL (4.7-6.1); White Blood Count 4.52 K/uL (4.8-10.8)
[2019-02-12 09:07] LABS: INR 1.3 (0.9-1.1); Partial Thromboplastin Ratio 1.2; Partial Thromboplastin Time 33.1 Seconds (21.0-31.0)
[2019-02-12 09:10] LABS: Alanine Aminotransferase 11 U/L (12-78); Albumin Level 2.7 gm/dl (3.4-5.0); Aspartate Aminotransferase 13 U/L (15-37); BUN Creatinine Ratio 27.8 (10-20); Bilirubin Direct 0.3 mg/dl (0-0.2); Blood Urea Nitrogen 23 mg/dl (7-18); Calcium 8.4 mg/dl (8.5-10.1); Carbon Dioxide 27 mmol/L (21-32); Chloride 104 mmol/L (98-107); Creatinine Clr Calc Pharmacy 66.2 ml/min; Est GFR (African American) 96.3; Est GFR (Non-African American) 83.1; Glucose 99 mg/dl (70-99); Lipase 20 U/L (73-393); Magnesium 2.2 mg/dl (1.8-2.4); Potassium 3.7 mmol/L (3.5-5.1); Sodium 137 mmol/L (136-145)
[2019-02-12 09:16] LABS: Alkaline Phosphatase 89 U/L (45-117); Bilirubin,Total 0.9 mg/dl (0.2-1); NT Pro B Type Natriuretic Pept 1917 pg/ml (0-1800); Total Protein 6.4 gm/dl (6.4-8.2); Troponin I < 0.015 ng/ml (0-0.045)
[2019-02-12 09:36] LABS: Influenza A virus by PCR Neg for Influ A (Neg); Influenza B virus by PCR Neg for Influ B (Neg)
[2019-02-12] MEDS: SODIUM CHLORIDE 0.9% 1000ML 1,000 ML IV SCH ×2 (09:45→18:23)
[2019-02-12 09:55] LABS: Base Excess VBG 3.3 mEq/L; Oxygen Saturation VBG 72.5 %; pH VBG 7.4 (7.36-7.41)
[2019-02-12] MEDS ORDERED: OPTIRAY 320 125ml IV PRN (10:11)
--- NOTE | 2019-02-12 10:33 | CT Scan Report ---
CT angio chest PE protocol HISTORY: 78 years-old Male with ro PE. Acute shortness of breath with history of metastatic colon c ancer. TECHNIQUE: Multiple CTA images of the chest were obtained after the intravenous administration of 93 ml Optiray 320. Coronal and sagittal MIPS were obtained from the axial data set and were submitted f or review. All measurements were obtained according to NASCET criteria. A dose lowering technique wa s utilized adhering to the principles of ALARA. COMPARISON: CT abdomen and pelvis of same day, CT guided biopsy 12/11/2018, chest CT 12/03/2018. FINDINGS: CTA: Moderate cardiomegaly. No pericardial effusion. Coronary arterial calcifications are noted. No thorac ic aortic aneurysm or dissection. Moderate mixed plaque of the thoracic aorta and proximal great vess els. Reflux of contrast into the IVC and hepatic veins. The pulmonary arterial tree is opacified to t he level of the subsegmental branches. Pulmonary emboli are noted within segmental and subsegmental b ranches of the right upper and lower lobes. No evidence of right heart strain. No central pulmonary e mboli. CT CHEST: Unremarkable thyroid. Pvjdny-i-Cugp catheter distal tip terminates in the SVC. No new adenopathy. Tra ce left pleural effusion. No pneumothorax. Mild dependent subsegmental bibasilar atelectasis. Bilater al bronchial wall thickening suggests bronchitis or reactive airway disease. 10 mm metastatic nodule of the left upper lobe on image 172 series 4 is unchanged. 8 mm solid nodule of the right lower lobe is unchanged in size however demonstrates no cavitation is seen on comparison. A few fissural lymph n odes are seen bilaterally measuring up to approximately 4 mm. Hypodense lesions of the bilateral kidneys are suggestive of renal cysts. Unchanged appearance of the adrenal glands. Ill-defined hypodense lesion of the left hepatic lobe is better seen on comparison. Destructive lytic lesion of the T8 vertebral body which is tension into the left posterior eighth rib and T8 pedicle is again noted, now with pathologic fracture of the posterior left eighth rib. Again, the mass likely extends into the left neuroforamen at this level and epidural space. IMPRESSION: 1. Segmental and subsegmental pulmonary emboli of the right upper and lower lobes. No evidence of pul monary infarction or right heart strain. 2. No significant change of the metastatic pulmonary nodules. 3. Lytic destructive lesion of T8 as described in details above is redemonstrated, now with acute rochelle earing minimally displaced pathologic fracture of the posterior left eighth rib. 4. Additional findings as above. The above report was generated using voice recognition software. It may contain grammatical, syntax o r spelling errors. Electronically signed by: Jovani Goldberg M.D. 02/12/2019 10:32 AM
--- NOTE | 2019-02-12 10:37 | CT Scan Report ---
CT abd pelvis IV con only CLINICAL HISTORY: Diffuse abdominal pain. Weakness. COMPARISON STUDY: 10/12/2018 TECHNIQUE: The patient was scanned in a dynamic helical fashion during intravenous administration of 119 cc of Optiray 320 A dose lowering technique was utilized adhering to the principles of ALARA. CT DOSE: 1816.79 mGy.cm FINDINGS: Lower chest: The heart is enlarged. There are minor basilar atelectatic changes. Liver: There is an enlarging 25 mm hypodense lesion within the left hepatic lobe. Neoplasm is the dilip gnosis of exclusion. There is equivocal second lesion within the left lobe of the liver abutting the falciform ligament. Additional hepatic hypodensities approach water attenuation and are suggestive of cysts. Gallbladder: Unremarkable. Spleen: Normal in size and attenuation. Pancreas: Unremarkable. Adrenal glands: There is bilateral adrenal gland enlargement similar to the prior study. Kidneys: There are multiple bilateral renal cysts measuring up to 74 mm on the left and 56 mm on the right. There is a nonobstructing 2.5 mm right renal calculus. There is a nonobstructing 3 mm left paige al calculus. Bowel: There are no transition zones indicate bowel obstruction. There is colonic diverticulosis. The re is no evidence of acute peridiverticular inflammatory change. The appendix is reportedly surgicall y absent Peritoneum: There is no intraperitoneal free air or abdominal ascites. There are small fat-containing bilateral inguinal hernias Vasculature: The abdominal aorta is normal in course and caliber. Adenopathy: Pelvic sidewall lymph nodes are the upper limits of normal in size. There is a 2 cm soft tissue nodule within the left lower quadrant peritoneal fat suspicious for a tumor implant. There is an 11 mm soft tissue nodule anterior to the left common iliac artery suspicious for a tumor implant. Pelvic viscera: There are dense prostatic calcifications. Skeletal structures: There is a pathologic fracture involving the eighth rib at the costovertebral ju nction. There is a destructive lesion involving the lateral mass of the T8 vertebra. IMPRESSION: 1. No evidence of bowel obstruction. No evidence of free air 2. Diverticulosis. No evidence of acute diverticulitis 3. Progressive metastatic disease with enlarging peritoneal implants. There is also an enlarging 25 m m left lobe hepatic hepatic lesion consistent with metastasis. 4. Metastatic deposit involving left eighth rib and lateral mass the T8 vertebral body 5. Bilateral nonobstructing renal calculi Electronically signed by: Elmo Kim M.D. 02/12/2019 10:35 AM
[2019-02-12] MEDS ORDERED: LORazepam 0.5 MG/1 ML VIAL IV STA (10:53)
[2019-02-12 11:09] LABS: Appearance Urine Clear (Clear); Bacteria Urine Automated Negative (Negative); Bilirubin Urine Negative (Negative); Blood Urine Trace (Negative); Color Urine Yellow; Epithelial Cell Urine Auto >30 /lpf (0-5); Glucose Urine UA Negative (Negative); Ketones Urine Negative (Negative); Leukocyte Esterase Urine 2+ (Negative); Nitrite Urine Negative (Negative); Protein Urine Negative (Negative); Specific Gravity Urine 1.036 (1.000-1.030); Urobilinogen Urine Negative (Negative); WBC Urine Automated >30 /hpf (0-5); pH Urine 5.5 (4.5-7.5)
[2019-02-12 11:18] LABS: Mucus Urine Present (None Prsent)
[2019-02-12 11:20] LABS: Calcium Oxalate Crystals Urine Present (None Prsent); RBC Urine Automated 0-4 /hpf (0-4)
[2019-02-12] MEDS ORDERED: fentaNYL citrate 100 MCG/2 ML VIAL IV STA (11:50)
[2019-02-12] MEDS ORDERED: HYDROmorphone INJ 1 MG/ML SYRINGE IV STA (12:04)
[2019-02-12] MEDS ORDERED: DiphenhydrAMINE HCL 50 MG/ML VIAL IV STA (12:05)
[2019-02-12] MEDS ORDERED: DiphenhydrAMINE HCL 50 MG/ML VIAL ONE (12:06)
[2019-02-12] MEDS ORDERED: GADOBUTROL 65ML VIAL IV PRN (14:20)
--- NOTE | 2019-02-12 14:33 | Magnetic Resonance Report ---
MR lumbar spine wo/w con CLINICAL HISTORY: Urinary incontinence. Metastatic disease. TECHNIQUE: Sagittal and axial T1, T2 and STIR images were obtained. Images were acquired before and a fter the administration of 8.5 cc of the venous Gadavist. COMPARISON STUDY: No previous studies for comparison. OBSERVATIONS: The vertebral bodies and posterior elements appear intact. There is no abnormal bony signal present t o suggest a marrow replacement process. L1-2: There is a broad-based central disc protrusion with mild to moderate spinal stenosis. There is mild left-sided foraminal narrowing. L2-3: There is a circumferential disc bulge with mild to moderate spinal stenosis. There is mild left -sided foraminal narrowing. L3-4: There is a broad-based central disc protrusion with moderate spinal stenosis. There is moderate right-sided foraminal narrowing and mild left-sided foraminal narrowing L4-5: There is a broad-based central disc protrusion. There is minimal spinal canal narrowing. There is no cystic or foraminal stenosis L5-S1: There is a broad-based central disc protrusion. There is no significant spinal stenosis. There is advanced facet joint arthropathy. There is a possible spondylolysis. There is severe bilateral fo raminal narrowing. There is a single enhancing right-sided nerve root within the cauda equina. IMPRESSION: 1. No evidence of metastatic disease within the lumbar spine 2. Advanced multilevel spondylytic changes with multilevel spinal stenosis most severe at the L3-4 le jarad. 3. Multilevel foraminal narrowing, most severe at the L5-S1 level bilaterally Electronically signed by: Elmo Kim M.D. 02/12/2019 2:32 PM
--- NOTE | 2019-02-12 14:39 | Magnetic Resonance Report ---
MR thoracic spine wo/w con HISTORY: 78 years-old Male ro cord compression hx t8 lesion adenocarcinoma acute abdominal pain with progressive metastatic disease. Enlarging peritoneal implants with hepatic metastasis described on C T abdomen and pelvis study of same day. Destructive lytic lesion of the T8 vertebral body, previously biopsied. COMPARISON: CTA of the chest 02/12/2019, chest CT 12/03/2018 TECHNIQUE: Multiplanar multisequence MRI of the thoracic spine was obtained both with and without the use of 8.5 mL Gadavist FINDINGS: Engraver Seals localizer images demonstrate no gross extraspinal abnormality. Destructive lytic lesion involvi ng the T8 segment involves the posterior left vertebral body extending into the pedicle and bilateral lamina and left transverse process and posterior left eighth rib measuring 4.9 x 4.0 x 5.0 cm. There is decreased T1 signal with heterogeneously increased T2 signal and avid enhancement. The mass exten ds into the left neuroforamen at T7-T8 and T8-T9. Additionally, there is extension into the left ante rior, posterior lateral epidural space. There is resultant moderate left-sided foraminal narrowing at T7-T8 and T8-T9 with severe left lateral recess narrowing at T7-T8. Moderate left lateral recess chuy rowing at T8-T9. Mild central canal stenosis at and T7-T8 and T8-T9. Mild adjacent soft tissue edema is likely reactive. There is acute pathologic fracture about the posterior left eighth rib as describ ed on CT study of same day. There is mild edema and enhancement of the lower cervical and upper thora cic paraspinal musculature without corresponding lesion which is nonspecific. Signal within the thora cic spinal cord appears unremarkable. The study is mildly motion degraded. No additional suspicious lesions identified about the thoracic spine. Multilevel disc space narrowing with spondylitic spurring and posterior disc osteophyte complex formation noted about the cervical a nd thoracic spine and also at L1-L2. There is a least mild central canal stenosis at L1-L2. Renal cys ts are redemonstrated. IMPRESSION: 1. Destructive lytic lesion of the T8 segment involving the left posterior aspect of the vertebral james dy extending into the left pedicle, bilateral lamina and left transverse process and posterior left e ighth rib redemonstrated measuring up to 5.0 cm. This mass extends into the left neuroforamen at T7-T 8 and T-T9 involving epidural space resulting in central canal and neuroforaminal narrowing as above. 2. Acute pathologic minimally displaced fracture of the posterior left eighth rib redemonstrated. 3. Mild nonspecific edema and enhancement involves the paraspinal musculature of the cervical thoraci c junction. 4. No additional suspicious lesions identified to suggest osseous metastatic disease. 5. Degenerative changes as above. The above report was generated using voice recognition software. It may contain grammatical, syntax o r spelling errors. Electronically signed by: Jovani Goldberg M.D. 02/12/2019 2:37 PM
--- NOTE | 2019-02-12 15:27 | Emergency Department Note ---
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 equivocal second lesion within the left lobe of the liver abutting the falciform ligament. Additional hepatic hypodensities approach water attenuation and are suggestive of cysts. Gallbladder: Unremarkable. Spleen: Normal in size and attenuation. Pancreas: Unremarkable. Adrenal glands: There is bilateral adrenal gland enlargement similar to the prior study. Kidneys: There are multiple bilateral renal cysts measuring up to 74 mm on the left and 56 mm on the right. There is a nonobstructing 2.5 mm right renal calculus. There is a nonobstructing 3 mm left renal calculus. Bowel: There are no transition zones indicate bowel obstruction. There is colonic diverticulosis. There is no evidence of acute peridiverticular inflammatory change. The appendix is reportedly surgically absent Peritoneum: There is no intraperitoneal free air or abdominal ascites. There are small fat-containing bilateral inguinal hernias Vasculature: The abdominal aorta is normal in course and caliber. Adenopathy: Pelvic sidewall lymph nodes are the upper limits of normal in size. There is a 2 cm soft tissue nodule within the left lower quadrant peritoneal fat suspicious for a tumor implant. There is an 11 mm soft tissue nodule anterior to the left common iliac artery suspicious for a tumor implant. Pelvic viscera: There are dense prostatic calcifications. Skeletal structures: There is a pathologic fracture involving the eighth rib at the costovertebral junction. There is a destructive lesion involving the lateral mass of the T8 vertebra. IMPRESSION: 1. No evidence of bowel obstruction. No evidence of free air 2. Diverticulosis. No evidence of acute diverticulitis 3. Progressive metastatic disease with enlarging peritoneal implants. There is also an enlarging 25 mm left lobe hepatic hepatic lesion consistent with metastasis. 4. Metastatic deposit involving left eighth rib and lateral mass the T8 vertebral body 5. Bilateral nonobstructing renal calculi Electronically signed by: Elmo Kim M.D. 02/12/2019 10:35 AM ECG Data Attestation: I personally reviewed and interpreted this ECG as follows: Indication: weakness Rate (beats per minute): 81 Rhythm: sinus rhythm Findings: + other (RI, QRS, and QTC intervals WNL, Baseline artifact) and + PVC; no ST depression, no ST elevation and no acute ischemic change Blood Pressure Blood Pressure Findings: Normal blood pressure Blood Pressure Disposition: further management by hospitalist CARMEN Narrative 0751: Past medical records reviewed. 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 The patient had a left hemicolectomy by Dr. Addison in January 2018 and has been following with Dr. Oakley for his cancer. The patient also had a bronchoscopy done in November 2018 that did not show any malignancy. 1215: The patient's vital signs are stable. Labs show a pro BMP of 1917. The patient's CTA of the chest showed multiple PEs, no evidence of right heart strain, lytic destructive lesions of T8, and new pathologic fracture of the posterior lateral aspect of the 8th rib. The CT of the abdomen showed progressive metastatic disease. The patient is significantly more alert and is reporting back pain where the fractures are located. He was sent to MRI to rule out cord compression but was sent back by the MRI techs as they said he will not tolerate the scan due to pain. I addressed this with 1mg of Dilaudid. Nursing staff informed me that the MRI staff would not be able to do the MRI because they have too many other patient's to scan. I spoke to the oral surgery technician at [phone]. [phone] and told them that this is an emergent MRI to rule out cord compression. After explaining the situation to them they did agree to take the patient back for his MRI. 1525: Vital signs stable. MRI shows no evidence of metastatic disease within the lumbar spine. MRI of the thoracic spine shows a destructive lesion of the T8 segment involving left posterior aspect extending into the left pedicle, lamina, and transverse process extending into the left eighth rib. The mass extends into the neuroforamen at T7-T8. There is signal within the thoracic spinal cord and appears unremarkable. MRI shows no evidence of cauda equina syndrome or spinal cord compression. I discussed the MRI results with ortho- spine Dr. Haque, he states there is no acute surgical intervention warranted at this time. Patient will be admitted to the hospitalist service for pain control. Spoke with Dr. Dee, [facility] hospitalist group who agreed to the admission. Impression & Plan Pathologic rib fracture, Adenocarcinoma, Colon cancer metastasized to bone, Intractable back pain, Pulmonary emboli Discharge Plan Visit Data Chief Complaint: Weakness Stated Complaint: weakness ED Provider: Alexander Meade Discharge Problem: Pathologic rib fracture, Adenocarcinoma, Colon cancer metastasized to bone, Intractable back pain, Pulmonary emboli Patient Disposition: Admitted As Inpatient Forms Stand Alone Forms: My [facility] Prescriptions Prescriptions: No Action potassium chloride [Klor-Con M20] 20 mEq tablet,ER particles/crystals 20 meq PO BID RF: 0 simvastatin 40 mg Tablet 20 mg PO HS RF: 0 ranitidine HCl 150 mg Tablet 150 mg PO QAM RF: 0 terazosin 10 mg Capsule 10 mg PO HS RF: 0 loratadine 10 mg Tablet 10 mg PO QAM RF: 0 Spiriva with HandiHaler 18 mcg Capsule, W/Inhalation Device 18 mcg Inhalation QAM Qty: 1 RF: 0 furosemide [Lasix] 40 mg tablet 40 mg PO BID RF: 0 Symbicort 160-4.5 mcg/actuation HFA aerosol inhaler 2 puff Inhalation DIRECTED PRN (Reason: Shortness Of Breath) RF: 0 latanoprost 0.005 % drops 1 drp ophthalmic (eye) DAILY RF: 0 amlodipine 5 mg Tablet 5 mg PO DAILY RF: 0 prochlorperazine maleate 10 mg Tablet 10 mg PO TID PRN (Reason: Nausea) RF: 0 aspirin [Aspirin Low Dose] 81 mg Tablet,Delayed Release (Dr/Ec) 81 mg PO DAILY RF: 0 ondansetron 8 mg Tablet,Disintegrating 8 mg PO Q12H RF: 0 folic acid 1 mg Tablet 1 mg PO DAILY RF: 0 ferrous sulfate 324 mg (65 mg iron) Tablet,Delayed Release (Dr/Ec) 324 mg PO BID RF: 0 rivaroxaban 20 mg Tablet 20 mg PO DAILY RF: 0 metoprolol tartrate 50 mg tablet 25 mg PO BID RF: 0 lisinopril 5 mg Tablet 2.5 mg PO QAM RF: 0 Referrals Referrals: Indy Thorpe PA-C [Primary Care Provider] - Discharge Problem: Pathologic rib fracture Qualifiers: Encounter type: initial encounter Qualified Code(s): M84.48XA - Pathological fracture, other site, initial encounter for fracture Pulmonary emboli Qualifiers: Pulmonary embolism type: multiple subsegmental (without acute cor pulmonale) Qualified Code(s): I26.94 - Multiple subsegmental pulmonary emboli without acute cor pulmonale The scribe's documentation has been prepared under my direction and personally reviewed by me in its entirety. I confirm that the note above accurately reflects all work, treatment, procedures, and medical decision making performed by me.
--- NOTE | 2019-02-12 17:17 | History & Physical Report ---
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 02/12/19 1428 XR chest 1V portable CLINICAL HISTORY: sob COMPARISON STUDY: 01/23/2019 FINDINGS: The heart remains enlarged. There is a left-sided A-Port catheter unchanged in position. There is no focal pulmonary consolidation. There are no pleural effusions. There is equivocal mild pulmonary venous hypertension.[ IMPRESSION: Cardiomegaly and equivocal mild pulmonary venous hypertension. No evidence of focal pulmonary consolidation Electronically signed by: Elmo Kim M.D. 02/12/2019 8:20 AM Dictated: 02/12/19818 Transcribed: 02/12/19818 CT abd pelvis IV con only CLINICAL HISTORY: Diffuse abdominal pain. Weakness. COMPARISON STUDY: 10/12/2018 TECHNIQUE: The patient was scanned in a dynamic helical fashion during intravenous administration of 119 cc of Optiray 320 A dose lowering technique was utilized adhering to the principles of ALARA. CT DOSE: 1816.79 mGy.cm FINDINGS: Lower chest: The heart is enlarged. There are minor basilar atelectatic changes. Liver: There is an enlarging 25 mm hypodense lesion within the left hepatic lobe. Neoplasm is the diagnosis of exclusion. There is equivocal second lesion within the left lobe of the liver abutting the falciform ligament. Additional hepatic hypodensities approach water attenuation and are suggestive of cysts. Gallbladder: Unremarkable. Spleen: Normal in size and attenuation. Pancreas: Unremarkable. Adrenal glands: There is bilateral adrenal gland enlargement similar to the prior study. Kidneys: There are multiple bilateral renal cysts measuring up to 74 mm on the left and 56 mm on the right. There is a nonobstructing 2.5 mm right renal calculus. There is a nonobstructing 3 mm left renal calculus. Bowel: There are no transition zones indicate bowel obstruction. There is colonic diverticulosis. There is no evidence of acute peridiverticular inflammatory change. The appendix is reportedly surgically absent Peritoneum: There is no intraperitoneal free air or abdominal ascites. There are small fat-containing bilateral inguinal hernias Vasculature: The abdominal aorta is normal in course and caliber. Adenopathy: Pelvic sidewall lymph nodes are the upper limits of normal in size. There is a 2 cm soft tissue nodule within the left lower quadrant peritoneal fat suspicious for a tumor implant. There is an 11 mm soft tissue nodule anterior to the left common iliac artery suspicious for a tumor implant. Pelvic viscera: There are dense prostatic calcifications. Skeletal structures: There is a pathologic fracture involving the eighth rib at the costovertebral junction. There is a destructive lesion involving the lateral mass of the T8 vertebra. IMPRESSION: 1. No evidence of bowel obstruction. No evidence of free air 2. Diverticulosis. No evidence of acute diverticulitis 3. Progressive metastatic disease with enlarging peritoneal implants. There is also an enlarging 25 mm left lobe hepatic hepatic lesion consistent with metastasis. 4. Metastatic deposit involving left eighth rib and lateral mass the T8 v ertebral body 5. Bilateral nonobstructing renal calculi Electronically signed by: Elmo Kim M.D. 02/12/2019 10:35 AM Dictated: 02/12/19 1018 Transcribed: 02/12/19 1023 ECG Additional Comments: Study shows sinus rhythm at 81 bpm with ectopic beats, normal axis and intervals, no acute ischemic changes, T wave abnormalities unchanged from prior study Code Status & VTE Plan Code Status Full code VTE Prophylaxis Plan VTE Prophylaxis will be ordered: Yes PG Care Time/CCT Total # of Minutes Spent Total Time Spent with Patient: Total time spent is greater than 50% in coordination of care (as documented) at patient's floor/unit and/or counseling patient: (1) Pathologic rib fracture Encounter type: initial encounter Qualified Code(s): M84.48XA - Pathological fracture, other site, initial encounter for fracture (2) Pulmonary emboli Pulmonary embolism type: multiple subsegmental (without acute cor pulmonale) Qualified Code(s): I26.94 - Multiple subsegmental pulmonary emboli without acute cor pulmonale (3) COPD (chronic obstructive pulmonary disease) COPD type: unspecified COPD Qualified Code(s): J44.9 - Chronic obstructive pulmonary disease, unspecified (4) GERD (gastroesophageal reflux disease) Esophagitis presence: esophagitis presence not specified Qualified Code(s): K21.9 - Gastro-esophageal reflux disease without esophagitis (5) Hypertension Hypertension type: essential hypertension Qualified Code(s): I10 - Essential (primary) hypertension (6) BPH (benign prostatic hyperplasia) Lower urinary tract symptom presence: symptoms absent Qualified Code(s): N40.0 - Benign prostatic hyperplasia without lower urinary tract symptoms
[2019-02-12] MEDS ORDERED: HYDROmorphone INJ 0.5 MG/0.5 ML SYR IV PRN (18:06)
[2019-02-12] MEDS ORDERED: ONDANSETRON INJ 2 MG/ML 2 ML VIAL IV PRN (18:21)
[2019-02-12] MEDS ORDERED: BUDESONIDE/FORMOTEROL FUMARATE 160/4.5 60 PUFFS/INHALER INH PRN (18:21)
[2019-02-12] MEDS ORDERED: PROCHLORPERAZINE MALEATE 10 MG TAB PO PRN (18:21)
[2019-02-12] MEDS ORDERED: DOCUSATE SODIUM 100 MG CAP PO PRN (18:21)
[2019-02-12 19:07] LABS: Magnesium 2.4 mg/dl (1.8-2.4); Phosphorus 2.9 mg/dl (2.5-4.9)
[2019-02-12] MEDS: FUROSEMIDE 40 MG TAB PO SCH (19:47)
[2019-02-12] MEDS: ONDANSETRON 8MG OD TAB PO SCH ×2 (19:48→19:49)
[2019-02-12] MEDS: FERROUS SULFATE 325 MG TAB PO SCH (20:51)
[2019-02-12] MEDS: TERAZOSIN HCL 5 MG CAP PO SCH (20:51)
[2019-02-12] MEDS ORDERED: SIMVASTATIN 40 MG TAB PO SCH (21:00)
[2019-02-12] MEDS ORDERED: FERROUS SULFATE 325 MG TAB PO SCH (21:00)
[2019-02-12] MEDS: ACETAMINOPHEN 325 MG TAB PO PRN (23:32)
[2019-02-13] MEDS: ONDANSETRON 8MG OD TAB PO SCH ×2 (04:59→17:59)
[2019-02-13] MEDS: HEPARIN 100 UNIT/ML 5ML FLUSH FLUSH PRN (05:26)
[2019-02-13 05:54] LABS: Hematocrit (blood only) 33.1 % (42-52); Hemoglobin 10.4 g/dL (14.0-18.0); Mean Corpuscular Hemoglobin 29.7 pg (25-34); Mean Corpuscular Hgb Conc 31.4 g/dL (32-36); Mean Corpuscular Volume 94.6 fL (80-100); Mean Platelet Volume 9.9 fL (7.4-10.4); Platelet Count 140 K/uL (130-400); RDW Coefficient of Variation 15.6 % (11.5-14.5); RDW Standard Deviation 51.1 fL (36.4-46.3); White Blood Count 2.41 K/uL (4.8-10.8)
[2019-02-13] MEDS ORDERED: INFLUENZA ADMINISTRATION CHARGE ONE (06:00)
[2019-02-13] MEDS ORDERED: INFLUENZA VACCINE HIGH DOSE 65+ 0.5 ML SYR IM ONE (06:00)
[2019-02-13 06:28] LABS: BUN Creatinine Ratio 19.9 (10-20); Basophils # (auto) 0.01 K/uL (0-0.2); Basophils % (auto) 0.4 %; Calcium 8.1 mg/dl (8.5-10.1); Creatinine Clr Calc Pharmacy 64.2 ml/min; Eosinophils # (auto) 0.08 K/uL (0-0.5); Eosinophils % (auto) 3.3 %; Est GFR (Non-African American) 81.1; Lymphocytes # (auto) 0.67 K/uL (1.2-3.4); Lymphocytes % (auto) 27.8 %; Monocytes # (auto) 0.69 K/uL (0.11-0.59); Monocytes % (auto) 28.6 %; Neutrophils # (auto) 0.96 K/uL (1.4-6.5); Neutrophils % (auto) 39.9 %; Ovalocytes 1+; Potassium 3.4 mmol/L (3.5-5.1)
[2019-02-13] MEDS: FERROUS SULFATE 325 MG TAB PO SCH ×2 (08:03→20:01)
[2019-02-13] MEDS: FOLIC ACID 1 MG TAB PO SCH (08:03)
[2019-02-13] MEDS: LORATADINE 10 MG TAB PO SCH (08:03)
[2019-02-13] MEDS: ASPIRIN 81 MG ECTAB PO SCH (08:03)
[2019-02-13] MEDS: FUROSEMIDE 40 MG TAB PO SCH ×2 (08:04→16:00)
[2019-02-13] MEDS: TIOTROPIUM BROMIDE 5 PUFF/90 MCG INH INH SCH (08:04)
[2019-02-13] MEDS: RIVAROXABAN 20 MG TAB PO SCH (08:05)
[2019-02-13] MEDS: LATANOPROST 0.005% OP SOLN 2.5 ML BTL OP SCH (08:05)
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
[2019-02-13] MEDS: POTASSIUM CHLORIDE 20 MEQ TABCR PO SCH (17:58)
[2019-02-13] MEDS: ACETAMINOPHEN 325 MG TAB PO PRN (18:01)
--- NOTE | 2019-02-13 18:49 | Consultation Report ---
DATE OF CONSULTATION: 02/13/2019 CHIEF COMPLAINT: Back pain. Orthopedic consultation in regard to metastatic carcinoma of the T7, T8 and T9 vertebral area with extension to the left neural foramen of these involved areas. Avtar is 78 years of age. I met him on rounds today at approximately 4:00 p.m. in the afternoon. He has a history of adenocarcinoma of colon with metastatic disease to the spine, liver, lung. He has diffuse weakness. Of note, he really does not have much pain at the time of this presentation in consultation. He is aware that he has metastatic disease. Other medical issues include COPD, pulmonary emboli, GERD, hypertension along with his metastatic disease. MEDICATIONS: Listed. PAST SURGICAL HISTORY: Listed as well. REVIEW OF SYSTEMS: Denies any fevers, sweats, chills. Does admit to significant weakness which has me somewhat concerned. It is lower extremity weakness and a few days ago he had difficulty standing in the bathroom. His upper extremities are intact. This would certainly sound like a cord issue or at least a cauda equina issue to the lower extremities. Overall he is a little better today than he was yesterday. He is able to stand and get to the toilet albeit bedside with assist. PHYSICAL EXAMINATION: EXTREMITIES: He does have weakness to the lower extremities; I would grade at 4/5. He can raise his quadriceps. He can dorsiflex and plantar flexion but it is slowed, it is certainly not normal. Sensory is intact, +2 pitting edema. Laboratories were evaluated as well. White count 4.52. Normal hemoglobin and hematocrit. I did look at his CT scan as best I could possibly ascertain. There was a lytic destruction lesion at T8, does not appear any cord compression at this level. There is some foraminal stenosis. IMPRESSION: Includes that of an 78-year-old gentleman with no cord compression with adenocarcinoma, metastatic disease of spine, other significant diseases. PLAN: Through my knowledge, experience and literature this is a nonsurgical issue regardless of the state of health. In other words if he was in perfect health we still would not probably operate in this situation. I will continue to follow. I am concerned about his weakness. Overall, he is not a great surgical candidate and I would not plan anything heroic for this delightful patient. I will follow with the team on his overall status.
[2019-02-13] MEDS: TERAZOSIN HCL 5 MG CAP PO SCH (20:02)
--- NOTE | 2019-02-13 20:49 | Family Medicine Progress Note ---
Date of Service February 13, 2019 Assessment & Plan (1) Adenocarcinoma: Mr. 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 -s/p low anterior resection 01/2018 and palliative radiation. Currently undergoing chemotherapy with Dr. Oakley (last treatment 2 weeks ago) -Neuro checks q4h to monitor for symptoms of cord compression -Oncology and Ortho-Spine consulted -Pain control with IV Dilaudid (2) Pathologic rib fracture: -secondary to metastatic disease -Dilaudid for analgesia (3) Intractable back pain: - denies injury to back; most likely secondary to progressive metastatic disease -Pain control as above -Ortho-spine consulted, appreciate recs (4) Pulmonary emboli: - initially visualized on CTA 01/26/19 - CTA from 02/12 showed segmental and subsegmental pulmonary emboli of the right upper and lower lobes. No PE or right heart strain. - on Xarelto but admits to inconsistent use - restarted Xarelto (5) COPD (chronic obstructive pulmonary disease): -patient currently satting 97 on on room air. -no baseline O2 requirement -Continue home Spiriva and Symbicort -Albuterol PRN (6) GERD (gastroesophageal reflux disease): Chronic. Stable -Continue home Ranitidine (7) Hypertension: -BP 111/65 -continue home medications (8) Dyslipidemia: -given limited life span with metastatic cancer, patient's 10 year ASCVD risk is likely irrelevant -no history of CAD -we will discontinue Simvastatin (9) BPH (benign prostatic hyperplasia): -Continue Terazosin (10) CHF (congestive heart failure): Patient with elevated BNP on admission at 1917 -Continue Lasix 40mg po BID -Daily weights -Continue to monitor Diet - Heart healthy as tolerated DVT Ppx - on Xarelto Code - Full, per discussion with patient Dispo - Floor Supervising Physician Co-Signing Physician Notes Patient seen and examined with PGY-1 Dr. Davila and PGY-3 Dr. Daley. Agree with history, exam findings, assessment and plan of care as outlined. In brief, Mr. Magallanes is an 78 year old male with hx of metastatic colon adenocarcinoma, HTN, prior PE admitted with back pain and inability to ambulate. He has known mets to his thoracic spine, but suddenly had new weakness and pain in the lower legs. 1. metastatic adenocarcinoma of the colon. Mets to spine and liver. Now with lower back pain and difficulty ambulating. No signs cauda equina. Pain control with dilaudid. Appreciate ortho spine and heme-onc recommendations. 2. PE. On Xarelto. 3. HTN. Low BPs on admission holding home meds except lasix 4. LE edema. Continue home lasix. Needs to have goals of care discussion. Dispo: pending further evaluation and management and pain control. Appreciate care management assistance as well. Subjective No acute events overnight. Patient reports his back pain is well controlled with current pain medication so long as he is seated upright in chair; pain worsens when he supine Physical Exam Physical Exam: General Appearance: well-developed, well-nourished older adult male in no acute distress HEENT: NC/AT. Sclera anicteric. Neck: Supple. CV: Rhythm is regular with additional beats. S1 and S2 appreciated. Faint systolic ejection murmur appreciated in aortic area. No gallops or rubs. Lungs: CTA in all lung burr bilaterally with equal air movement. No wheezes, rales, rhonchi or crackles. Skin warm, dry, and intact Neuro: AAO x 3. No focal deficits. Psych: Appropriate mood and affect; tearful when discussing prognosis Results & Data Vital Signs (Past 12 Hours) Vital Signs Temp Pulse Resp BP Pulse Ox 02/13/19 19:29 36.8 C 78 18 111/65 97 02/13/19 15:20 36.5 C 69 18 113/72 97 Laboratory Results 02/13/19 02/13/19 Range/Units 05:26 05:26 WBC 2.41 L (4.8-10.8) K/uL RBC 3.50 L (4.7-6.1) M/uL Hgb 10.4 L (14.0-18.0) g/dL Hct 33.1 L (42-52) % MCV 94.6 (80-100) fL MCH 29.7 (25-34) pg MCHC 31.4 L (32-36) g/dL RDW Std Deviation 51.1 H (36.4-46.3) fL RDW Coeff of Juan 15.6 H (11.5-14.5) % Plt Count 140 (130-400) K/uL MPV 9.9 (7.4-10.4) fL Immature Gran % (Auto) 0.0 % Neut % (Auto) 39.9 % Lymph % (Auto) 27.8 % Catron % (Auto) 28.6 % Eos % (Auto) 3.3 % Baso % (Auto) 0.4 % Immature Gran # (Auto) 0.00 (0.00-0.02) K/uL Neut # (Auto) 0.96 L* (1.4-6.5) K/uL Lymph # (Auto) 0.67 L (1.2-3.4) K/uL Catron # (Auto) 0.69 H (0.11-0.59) K/uL Eos # (Auto) 0.08 (0-0.5) K/uL Baso # (Auto) 0.01 (0-0.2) K/uL Ovalocytes 1+ Sodium 142 (136-145) mmol/L Potassium 3.4 L (3.5-5.1) mmol/L Chloride 108 H (98-107) mmol/L Carbon Dioxide 28 (21-32) mmol/L Anion Gap 6.0 (3-11) BUN 18 (7-18) mg/dl Creatinine 0.88 (0.6-1.4) mg/dl Est Cr Clr Drug Dosing 64.2 ml/min Est GFR ( Amer) 94.0 Est GFR (Non-Af Amer) 81.1 BUN/Creatinine Ratio 19.9 (10-20) Glucose 81 (70-99) mg/dl Calcium 8.1 L (8.5-10.1) mg/dl PG Care Time/CCT Total # of Minutes Spent Total Time Spent with Patient: Total time spent is greater than 50% in coordination of care (as documented) at patient's floor/unit and/or counseling patient: Resident Activity Tracking Resident Involvement: Resident Care Provided Care Provided: Adult Hospital Medicine (1) BPH (benign prostatic hyperplasia) Lower urinary tract symptom presence: symptoms absent Qualified Code(s): N40.0 - Benign prostatic hyperplasia without lower urinary tract symptoms (2) Pathologic rib fracture Encounter type: initial encounter Qualified Code(s): M84.48XA - Pathological fracture, other site, initial encounter for fracture (3) COPD (chronic obstructive pulmonary disease) COPD type: unspecified COPD Qualified Code(s): J44.9 - Chronic obstructive pulmonary disease, unspecified (4) Pulmonary emboli Pulmonary embolism type: multiple subsegmental (without acute cor pulmonale) Qualified Code(s): I26.94 - Multiple subsegmental pulmonary emboli without acute cor pulmonale (5) GERD (gastroesophageal reflux disease) Esophagitis presence: esophagitis presence not specified Qualified Code(s): K21.9 - Gastro-esophageal reflux disease without esophagitis (6) Hypertension Hypertension type: essential hypertension Qualified Code(s): I10 - Essential (primary) hypertension
[2019-02-14] MEDS: ACETAMINOPHEN 325 MG TAB PO PRN ×2 (02:23→08:45)
[2019-02-14] MEDS: ONDANSETRON 8MG OD TAB PO SCH ×2 (06:12→18:46)
[2019-02-14] MEDS: HEPARIN 100 UNIT/ML 5ML FLUSH FLUSH PRN ×2 (07:13→12:28)
[2019-02-14 07:24] LABS: Hematocrit (blood only) 35.4 % (42-52); Hemoglobin 11.1 g/dL (14.0-18.0); Mean Corpuscular Hemoglobin 29.4 pg (25-34); Mean Corpuscular Hgb Conc 31.4 g/dL (32-36); Mean Corpuscular Volume 93.9 fL (80-100); Mean Platelet Volume 9.4 fL (7.4-10.4); Platelet Count 152 K/uL (130-400); RDW Coefficient of Variation 15.5 % (11.5-14.5); RDW Standard Deviation 51.2 fL (36.4-46.3); Red Blood Count 3.77 M/uL (4.7-6.1); White Blood Count 1.85 K/uL (4.8-10.8)
[2019-02-14 08:24] LABS: Eosinophils % (auto) 5.4 %; Lymphocytes # (auto) 0.64 K/uL (1.2-3.4); Lymphocytes % (auto) 34.6 %; Monocytes # (auto) 0.71 K/uL (0.11-0.59); Monocytes % (auto) 38.4 %; Neutrophils % (auto) 21.6 %; Ovalocytes 1+
--- NOTE | 2019-02-14 08:31 | Progress Note ---
DATE: 02/14/2019 ONCOLOGY PROGRESS NOTE DIAGNOSES: 1. Asthenia/generalized weakness. 2. Metastatic colorectal cancer. 3. Redemonstrated pulmonary embolism. 4. Hypoalbuminemia. 5. Intractable back pain, attributable to metastatic progression. SUBJECTIVE: Avtar was seen sitting at bedside this morning. He states pain control is better, but he is still unable to walk. He basically describes his legs not able to hold his weight. Clearly, he is not ready for discharge at this point. I discussed Mr. Magallanes's case with Dr. Oakley and chemotherapy will be on hold indefinitely until Mr. Magallanes is discharged and seen in followup. Agree with orthopedic consultation. Nursing reports no overnight difficulties. Mr. Magallanes states his appetite has been pretty good since admission. OBJECTIVE: GENERAL: A very pleasant 78-year-old -[place] gentleman in no acute distress. VITAL SIGNS: Temperature 36.6, pulse 106, respiratory rate 20, blood pressure 129/81. SKIN: Without rash or lesion. HEENT: Oral mucosa without erythema or ulceration. NECK: Supple. Trachea is midline. HEART: Regular rate and rhythm. LUNGS: Clear to auscultation bilaterally. ABDOMEN: Soft, nontender, nondistended. EXTREMITIES: No clubbing, cyanosis or edema. NEUROLOGIC: Grossly intact. LABORATORY DATA: WBC count 1850, hemoglobin 11.1, platelet count 152,000. Chemistries are pending. IMPRESSION: 1. Asthenia/generalized weakness. 2. Metastatic colorectal cancer. 3. Redemonstrated pulmonary embolism. 4. Hypoalbuminemia. 5. Intractable back pain, attributable to metastatic extension. PLAN: Mr. Magallanes was seen by Dr. Haque from orthopedics who does not feel surgery is indicated. I would agree in light of metastatic disease in a relatively poor prognosis to do anything invasive at this point would provide little benefit for Mr. Magallanes. Perhaps, activating physical and occupational therapy to work with him on strength building. Make sure dietary works on his nutritional status. From my conversation with Dr. Oakley, Mr. Magallanes may want to consider palliative care versus a markedly reduced combination chemotherapy moving forward. His peripheral blood counts are still lagging behind and thus would not proceed with any form of treatment for the foreseeable future. Agree with medical management otherwise. We will continue to follow him periodically during his hospital stay.
[2019-02-14 08:38] LABS: Calcium 8.5 mg/dl (8.5-10.1); Creatinine Clr Calc Pharmacy 83.1 ml/min; Est GFR (African American) 104.5; Est GFR (Non-African American) 90.2; Potassium 3.3 mmol/L (3.5-5.1)
[2019-02-14] MEDS: ASPIRIN 81 MG ECTAB PO SCH (08:42)
[2019-02-14] MEDS: LORATADINE 10 MG TAB PO SCH (08:42)
[2019-02-14] MEDS: FOLIC ACID 1 MG TAB PO SCH (08:43)
[2019-02-14] MEDS: FUROSEMIDE 40 MG TAB PO SCH ×2 (08:43→17:30)
[2019-02-14] MEDS: TIOTROPIUM BROMIDE 5 PUFF/90 MCG INH INH SCH (08:43)
[2019-02-14] MEDS: FERROUS SULFATE 325 MG TAB PO SCH ×2 (08:43→20:52)
[2019-02-14] MEDS: POTASSIUM CHLORIDE 20 MEQ TABCR PO SCH (08:43)
[2019-02-14] MEDS: LATANOPROST 0.005% OP SOLN 2.5 ML BTL OP SCH (08:45)
[2019-02-14] MEDS: RIVAROXABAN 20 MG TAB PO SCH (08:45)
[2019-02-14] MEDS ORDERED: FUROSEMIDE 20 MG in SYRINGE 0 ML IV ONE (11:45)
[2019-02-14] MEDS: ACETAMINOPHEN 325 MG TAB PO SCH ×3 (12:28→23:32)
[2019-02-14] MEDS ORDERED: MoRPHine SULFATE 2 MG/ML CARP IV STA (15:44)
--- NOTE | 2019-02-14 16:03 | Family Medicine Progress Note ---
Date of Service February 14, 2019 Assessment & Plan (1) Adenocarcinoma: Mr. 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 -s/p low anterior resection 01/2018 and palliative radiation. Currently undergoing chemotherapy with Dr. Oakley (last treatment 2 weeks ago) -Oncology following: Dr. Sinclair suggested holding off on further chemo. ANC today is down to 399. Per Dr. Sinclair's note, Neupogen should be considered at an ANC below 800; however after further conversation with Dr. Chino, he advised to hold off on the Neupogen for the time being. If patient becomes febrile, tachycardic, tachypneic we will add the Neuopogen -Ortho-Spine following: recommended no surgical intervention -extensive goals of care conversation was held today with patient and his ; he requested his code status be changed to DNR/DNI. His goals are to enjoy time with his at home for as long as possible. -Palliative care consulted -PT/OT consulted -Pain control with scheduled Tylenol and IV Dilaudid; patient reports he tolerates morphine well; one dose of IV 1mg morphine was ordered today for breakthrough pain Present on Admission?: Yes (2) Intractable back pain: - denies injury to back; most likely secondary to progressive metastatic disease vs. underlying spinal stenosis - neuro checks q4h to monitor for symptoms of cord compression - Pain control as above - Ortho-spine consulted, appreciate recs Present on Admission?: Yes (3) Pathologic rib fracture: -secondary to metastatic disease -Scheduled tylenol q6h; morphine or Dilaudid prn for analgesia Present on Admission?: Yes (4) Asymptomatic bacteriuria: - Urine culture from 02.12 grew out enterococcus, >80,000 colonies - although patient is asymptomatic, he is immunosuppressed on chemo - after discussing possibility of treating with antimicrobial with heme-onc (Dr. Sinclair), we will ordered repeat Ux today and if growth more prominent tomorro w we will add antibiotic (5) Pulmonary emboli: - initially visualized on CTA 01/26/19 - CTA from 02/12 showed segmental and subsegmental pulmonary emboli of the right upper and lower lobes. No PE or right heart strain. - on Xarelto but admits to inconsistent use - restarted Xarelto Present on Admission?: Yes (6) COPD (chronic obstructive pulmonary disease): -patient currently satting 98 on on room air. -no baseline O2 requirement -Continue home Spiriva and Symbicort -Albuterol PRN Present on Admission?: Yes (7) GERD (gastroesophageal reflux disease): Chronic. Stable -Continue home Ranitidine Present on Admission?: Yes (8) Hypertension: -BP 102/67 -continue home medications Present on Admission?: Yes (9) Dyslipidemia: -given limited life span with metastatic cancer, patient's 10 year ASCVD risk is likely irrelevant -no history of CAD -we will discontinue Simvastatin Present on Admission?: Yes (10) CHF (congestive heart failure): Patient with elevated BNP on admission at 1917 -Continue Lasix 40mg po BID; added one time dose of IV lasix 20mg due to increased pedal edema on exam today -Daily weights -Continue to monitor Present on Admission?: Yes (11) BPH (benign prostatic hyperplasia): -Continue Terazosin Diet - Heart healthy as tolerated DVT Ppx - on Xarelto Code - changed from full to DNR/DNI, per discussion with patient and his (who is his POA) Dispo - Floor Present on Admission?: Yes Supervising Physician Co-Signing Physician Notes Patient seen and examined with PGY-1 Dr. Davila and PGY-3 Dr. Daley. Agree with history, exam findings, assessment and plan of care as outlined. In brief, Mr. Magallanes is an 78 year old male with hx of metastatic colon adenocarcinoma, HTN, prior PE admitted with back pain and inability to ambulate. He has known mets to his thoracic spine, liver and lungs, but suddenly had new weakness and pain in the lower legs. He reports that he has constant stabbing/jabbing pains in the mid thoracic area. He did palliative radiation and a round of chemo because he thought it might help with the pain. He did report that he thought the radiation was a little bit helpful for a short period of time. He does not wish to have more chemo. He does have quite a bit of oral [facility] at [facility] However, he is hesitant to take the medication unless his pain is unbearable because at one point in his life he was warned about potential for dependence and addiction. 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 They used to have home care come to the home, but this ended in May when the company went out of business. Farida and Avtar feel that it might be very helpful to have home nursing again. He is concerned because he does not feel that he can adequately care for/provide for his Farida. He has an adult son, Jeanie, who does not live nearby. He tell s me that the most important things for him at this time are to be at home with his and to be able to ride his motorized scooter in his neighborhood. His motorized scooter is not functional right now. There is something wrong with the battery and it has been replaced, but is still non-functional. He has tried to get several companies to fix it, but has been unsuccessful. He loves photography and is an avid birder. He is tearful. Has +2 edema in the legs. 1. metastatic adenocarcinoma of the colon. Mets to spine and liver. Now with lower back pain and difficulty ambulating. No signs cauda equina. - scheduled tylenol, dilaudid PRN. - encouraged him to consider using morphine for his pain when he returns home 2. PEs. On Xarelto. 3. HTN. Low BPs on admission holding home meds except lasix 4. LE edema. Continue home lasix and gave extra dose of IV lasix today. 5. Bacteruria. Growing enterococcus. Questionable whether or not he has symptoms. However, he is neutropenic. Repeat urine culture. Consider treating. 6. Neutropenia. Neutropenic precautions. Discussed whether or not neupogen might be helpful with heme-onc today. Defer starting right now. Goals of care discussion: Avtar would like to return home with his Farida. Would like to be able to ride his scooter to do some birding around the neighborhood. He does not want any more chemo. He does not want CPR or medicatio n to restart his heart. He does not want to be intubated. Code status changed in the EMR. He would benefit from hospice. Discussed with physician primary care sports medicine whether or not there is a way to help him get a working scooter again. Appreciate palliative care and physician primary care sports medicine assistance. Dispo: likely dc home tomorrow with either hospice. I personally spent 70 minutes of face to face time with Avtar and his Farida today providing education, counseling and emotional support. Subjective No acute events overnight. Patient reports his back pain is at a tolerable level; he says he has a generous supply of morphine tablets at home from the [facility], however he tries to use them only sparingly as he fears addiction(he was accused of being addicted in the past to painkillers by a provider at the [facility]). His is present at bedside. Review of Systems Musculoskeletal: + back pain Physical Exam Physical Exam: General Appearance: well-developed, well-nourished older adult male in no acute distress HEENT: NC/AT. Sclera anicteric. Neck: Supple. CV: Rhythm is regular with additional beats. S1 and S2 appreciated. Faint systolic ejection murmur appreciated in aortic area. No gallops or rubs. Lungs: CTA in all lung burr bilaterally with equal air movement. No wheezes, rales, rhonchi or crackles. Extremities: +1 bilateral LE edema Skin: warm, dry, and intact Neuro: AAO x 3. No focal deficits. Psych: Appropriate mood and affect; tearful when discussing prognosis Results & Data Vital Signs (Past 12 Hours) Vital Signs Temp Pulse Pulse Resp BP BP Pulse Ox 02/14/19 15:51 36.6 C 74 20 102/67 98 02/14/19 08:04 36.4 C L 79 20 128/82 98 Laboratory Results 02/14/19 02/14/19 Range/Units 07:10 07:08 WBC 1.85 L (4.8-10.8) K/uL RBC 3.77 L (4.7-6.1) M/uL Hgb 11.1 L (14.0-18.0) g/dL Hct 35.4 L (42-52) % MCV 93.9 (80-100) fL MCH 29.4 (25-34) pg MCHC 31.4 L (32-36) g/dL RDW Std Deviation 51.2 H (36.4-46.3) fL RDW Coeff of Juan 15.5 H (11.5-14.5) % Plt Count 152 (130-400) K/uL MPV 9.4 (7.4-10.4) fL Immature Gran % (Auto) 0.0 % Neut % (Auto) 21.6 % Lymph % (Auto) 34.6 % [place] % (Auto) 38.4 % Eos % (Auto) 5.4 % Baso % (Auto) 0.0 % Immature Gran # (Auto) 0.00 (0.00-0.02) K/uL Neut # (Auto) 0.40 L* (1.4-6.5) K/uL Lymph # (Auto) 0.64 L (1.2-3.4) K/uL [place] # (Auto) 0.71 H (0.11-0.59) K/uL Eos # (Auto) 0.10 (0-0.5) K/uL Baso # (Auto) 0.00 (0-0.2) K/uL Ovalocytes 1+ Sodium 143 (136-145) mmol/L Potassium 3.3 L (3.5-5.1) mmol/L Chloride 108 H (98-107) mmol/L Carbon Dioxide 31 (21-32) mmol/L Anion Gap 4.0 (3-11) BUN 11 (7-18) mg/dl Creatinine 0.68 (0.6-1.4) mg/dl Est Cr Clr Drug Dosing 83.1 ml/min Est GFR ( Amer) 104.5 Est GFR (Non-Af Amer) 90.2 BUN/Creatinine Ratio 16.0 (10-20) Glucose 84 (70-99) mg/dl Calcium 8.5 (8.5-10.1) mg/dl PG Care Time/CCT Total # of Minutes Spent Total Time Spent with Patient: Total time spent is greater than 50% in coordina tion of care (as documented) at patient's floor/unit and/or counseling patient: Resident Activity Tracking Resident Involvement: Resident Care Provided Care Provided: Adult Hospital Medicine (1) BPH (benign prostatic hyperplasia) Lower urinary tract symptom presence: symptoms absent Qualified Code(s): N40.0 - Benign prostatic hyperplasia without lower urinary tract symptoms (2) Pathologic rib fracture Encounter type: initial encounter Qualified Code(s): M84.48XA - Pathological fracture, other site, initial encounter for fracture (3) COPD (chronic obstructive pulmonary disease) COPD type: unspecified COPD Qualified Code(s): J44.9 - Chronic obstructive pulmonary disease, unspecified (4) Pulmonary emboli Pulmonary embolism type: multiple subsegmental (without acute cor pulmonale) Qualified Code(s): I26.94 - Multiple subsegmental pulmonary emboli without acute cor pulmonale (5) GERD (gastroesophageal reflux disease) Esophagitis presence: esophagitis presence not specified Qualified Code(s): K21.9 - Gastro-esophageal reflux disease without esophagitis (6) Hypertension Hypertension type: essential hypertension Qualified Code(s): I10 - Essential (primary) hypertension
--- NOTE | 2019-02-14 17:05 | Palliative Care Progress Note ---
Date of Service February 14, 2019 Subjective 78 year old male patient with metastatic colon adenocarcinoma. Palliative consulted to discuss goals of care. Met with patient in room 451-2. Patient very straight forward and states that he does not want to continue chemotherapy and wants to go home with his and be comfortable. He is interested in home hospice care. Patient changed himself to DNR/DNI earlier today. Will speak with case management tomorrow regarding hospice referral. Will talk with patient and his tomorrow. Formal consult to follow. Results & Data Vital Signs (Past 12 Hours) Vital Signs Temp Pulse Pulse Resp BP BP Pulse Ox 02/14/19 15:51 36.6 C 74 20 102/67 98 02/14/19 08:04 36.4 C L 79 20 128/82 98
[2019-02-14] MEDS: TERAZOSIN HCL 5 MG CAP PO SCH (20:52)
[2019-02-15] MEDS ORDERED: MoRPHine SULFATE IR 15 MG TAB (IMMEDIATE RELEASE) PO PRN ×2 (01:37→12:51)
[2019-02-15] MEDS ORDERED: MoRPHine SULFATE IR 15 MG TAB (IMMEDIATE RELEASE) PO ONE (02:55)
[2019-02-15] MEDS: ACETAMINOPHEN 325 MG TAB PO SCH ×2 (05:45→12:08)
[2019-02-15 06:02] LABS: Hematocrit (blood only) 35.6 % (42-52); Hemoglobin 11.6 g/dL (14.0-18.0); Mean Corpuscular Hemoglobin 30.3 pg (25-34); Mean Corpuscular Hgb Conc 32.6 g/dL (32-36); Mean Platelet Volume 10.3 fL (7.4-10.4); Platelet Count 189 K/uL (130-400); RDW Coefficient of Variation 15.4 % (11.5-14.5); RDW Standard Deviation 51.7 fL (36.4-46.3); Red Blood Count 3.83 M/uL (4.7-6.1); White Blood Count 2.04 K/uL (4.8-10.8)
[2019-02-15 06:34] LABS: BUN Creatinine Ratio 11.8 (10-20); Calcium 8.5 mg/dl (8.5-10.1); Creatinine Clr Calc Pharmacy 72.3 ml/min; Est GFR (African American) 99.9; Est GFR (Non-African American) 86.2; Potassium 3.3 mmol/L (3.5-5.1)
[2019-02-15 07:15] LABS: Basophils # (auto) 0.01 K/uL (0-0.2); Basophils % (auto) 0.5 %; Eosinophils # (auto) 0.12 K/uL (0-0.5); Eosinophils % (auto) 5.9 %; Immature Granulocytes # (auto) 0.01 K/uL (0.00-0.02); Immature Granulocytes % (auto) 0.5 %; Lymphocytes # (auto) 0.85 K/uL (1.2-3.4); Lymphocytes % (auto) 41.7 %; Monocytes # (auto) 0.81 K/uL (0.11-0.59); Monocytes % (auto) 39.7 %; Neutrophils # (auto) 0.24 K/uL (1.4-6.5); Neutrophils % (auto) 11.7 %
[2019-02-15] MEDS: ONDANSETRON 8MG OD TAB PO SCH (07:50)
[2019-02-15] MEDS: TIOTROPIUM BROMIDE 5 PUFF/90 MCG INH INH SCH (07:54)
[2019-02-15] MEDS: FOLIC ACID 1 MG TAB PO SCH (07:54)
[2019-02-15] MEDS: FUROSEMIDE 40 MG TAB PO SCH (07:54)
[2019-02-15] MEDS: RIVAROXABAN 20 MG TAB PO SCH (07:55)
[2019-02-15] MEDS: LORATADINE 10 MG TAB PO SCH (07:55)
[2019-02-15] MEDS: ASPIRIN 81 MG ECTAB PO SCH (07:55)
[2019-02-15] MEDS: FERROUS SULFATE 325 MG TAB PO SCH (07:55)
[2019-02-15] MEDS: POTASSIUM CHLORIDE 20 MEQ TABCR PO SCH (07:56)
[2019-02-15] MEDS: LATANOPROST 0.005% OP SOLN 2.5 ML BTL OP SCH (07:56)
[2019-02-15] MEDS: HEPARIN 100 UNIT/ML 5ML FLUSH FLUSH PRN (08:02)
[2019-02-15] MEDS ORDERED: MoRPHine SULFATE 2 MG/ML CARP IV STA ×2 (08:36→08:50)
[2019-02-15] MEDS ORDERED: METOPROLOL TARTRATE 25 MG TAB PO SCH (11:00)
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
[2019-02-15 13:50] VITALS: O2SAT 99
[2019-02-15] MEDS ORDERED: MoRPHine SULFATE IR 15 MG TAB (IMMEDIATE RELEASE) PO SCH (14:00)
[2019-02-15] MEDS ORDERED: NITROFURANTOIN MONOHYDRATE 100 MG CAP PO STA (14:29)
[2019-02-15 15:28] VITALS: BP 108/73; PULSE 81; TEMP 97.9
--- NOTE | 2019-02-15 16:17 | Discharge Summary ---
Date of Service February 15, 2019 Admission HPI Per Admitting Provider Avtar Magallanes is an 78-year-old -[place] male with multiple medical problems, most notably invasive adenocarcinoma of the colon status post low anterior resection performed on 01/30/2018 complicated by post-operative pulmonary embolism, metastases to bone (rib and vertebral body, T8). He was treated with palliative radiation. Concern for metastasis to liver as well. He had a port placed in the left anterior chest wall and is currently undergoing chemotherapy with Dr. Oakley. Last treatment 2 weeks ago, was due to receive tx today. Patient presents today with complaints of increased weakness over the past 2 days. Reports that he was unable to get out of bed today to use the bathroom. Also with increased pain in his back which has been worsening over the last couple of weeks, most on the right lower back. Patient states that he has occasional shortness of breath and chest tightness as well as some pleuritic chest pain. reports an episode of urinary incontinence last night. Also running "low-grade fevers" intermittently over the last couple of days. ER course: Benadryl, fentanyl, Dilaudid, Ativan, normal saline Admission Exam Per Admitting Provider General: Elderly gentleman resting comfortably, NAD, non-toxic in appearance, AA&O x 4 Skin: warm, dry, intact, no rashes or lesions HEENT: NC/AT, PERRL, EOMI, anicteric sclera, conjunctiva without injection, external ear normal to inspection and nontender, nares patent, moist mucus membranes, dentition intact, no oropharyngeal lesions, neck supple, trachea midline, no LAD, no thyromegaly, no JVD Heart: +S1/S2, regular with frequent ectopy, 3/6 systolic ejection murmur Lungs: equal air entry bilaterally, no rales/rhonchi/wheezes Abd: +BS, soft, NT/ND, no masses/organomegaly/ascites Ext: warm, 2+ pulses in UE/LE bilaterally, no clubbing/cyanosis, +2 pitting edema of the bilateral lower extremities Neuro: nonfocal, patient AA&O x 4, speech intact, no facial droop, moving all extremities on command with equal strength 5/5, no saddle anesthesia or incontinence Principal Diagnosis Metastatic Adenocarcinoma Discharge Exam General Appearance: well-developed, well-nourished older adult male in no acute distress HEENT: NC/AT. Sclera anicteric. Neck: Supple. CV: Rhythm is irregularly irregular and tachycardic. S1 and S2 appreciated. Faint systolic ejection murmur appreciated in aortic area. No gallops or rubs. Lungs: CTA in all lung burr bilaterally with equal air movement. No wheezes, rales, rhonchi or crackles. Extremities: +1 bilateral LE edema Skin: warm, dry, and intact Neuro: AAO x 3. No focal deficits. Psych: Appropriate mood and affect; tearful when discussing prognosis Discharge Data Allergies Allergy/AdvReac Type Severity Reaction Status Date / Time Penicillins Allergy Unknown Unknown Verified 01/23/19 07:20 Sulfa (Sulfonamide Allergy Unknown Unknown Verified 01/23/19 07:20 Antibiotics) oxycodone AdvReac Severe N/V Verified 01/23/19 07:20 quetiapine AdvReac Unknown insomnia, Verified 01/23/19 07:20 nightmares, hallucinations ubidecarenone AdvReac Unknown blood in Verified 01/23/19 07:20 stool Consultations 02/12/19 15:24 ED Decision to Admit Stat 02/12/19 18:21 Consult Oncology Routine Consult Orthopedic Surgery Routine 02/14/19 11:18 Consult Palliative Care Routine 02/15/19 12:31 Consult Patient Services Routine Ordered Studies 02/12/19 08:01 CT angio chest PE protocol HISTORY: 78 years-old Male with ro PE. Acute shortness of breath with history of metastatic colon cancer. TECHNIQUE: Multiple CTA images of the chest were obtained after the intravenous administration of 93 ml Optiray 320. Coronal and sagittal MIPS were obtained from the axial data set and were submitted for review. All measurements were obtained according to NASCET criteria. A dose lowering technique was utilized adhering to the principles of ALARA. COMPARISON: CT abdomen and pelvis of same day, CT guided biopsy 12/11/2018, chest CT 12/03/2018. FINDINGS: CTA: Moderate cardiomegaly. No pericardial effusion. Coronary arterial calcifications are noted. No thoracic aortic aneurysm or dissection. Moderate mixed plaque of the thoracic aorta and proximal great vessels. Reflux of contrast into the IVC and hepatic veins. The pulmonary arterial tree is opacified to the level of the subsegmental branches. Pulmonary emboli are noted within segmental and subsegmental branches of the right upper and lower lobes. No evidence of right heart strain. No central pulmonary emboli. CT CHEST: Unremarkable thyroid. [id number] catheter distal tip terminates in the SVC. N o new adenopathy. Trace left pleural effusion. No pneumothorax. Mild dependent subsegmental bibasilar atelectasis. Bilateral bronchial wall thickening suggests bronchitis or reactive airway disease. 10 mm metastatic nodule of the left upper lobe on image 172 series 4 is unchanged. 8 mm solid nodule of the right lower lobe is unchanged in size however demonstrates no cavitation is seen on comparison. A few fissural lymph nodes are seen bilaterally measuring up to approximately 4 mm. Hypodense lesions of the bilateral kidneys are suggestive of renal cysts. Unchanged appearance of the adrenal glands. Ill-defined hypodense lesion of the left hepatic lobe is better seen on comparison. Destructive lytic lesion of the T8 vertebral body which is tension into the left posterior eighth rib and T8 p edicle is again noted, now with pathologic fracture of the posterior left eighth rib. Again, the mass likely extends into the left neuroforamen at this level and epidural space. IMPRESSION: 1. Segmental and subsegmental pulmonary emboli of the right upper and lower lobes. No evidence of pulmonary infarction or right heart strain. 2. No significant change of the metastatic pulmonary nodules. 3. Lytic destructive lesion of T8 as described in details above is redemonstrated, now with acute appearing minimally displaced pathologic fracture of the posterior left eighth rib. 4. Additional findings as above. The above report was generated using voice recognition software. It may contain grammatical, syntax or spelling errors. Electronically signed by: Jovani Goldberg M.D. 02/12/2019 10:32 AM Dictated: 02/12/19 1018 Transcribed: 02/12/19 1018 02/12/19 08:03 MR lumbar spine wo/w con Stat MR lumbar spine wo/w con CLINICAL HISTORY: Urinary incontinence. Metastatic disease. TECHNIQUE: Sagittal and axial T1, T2 and STIR images were obtained. Images were acquired before and after the administration of 8.5 cc of the venous Gadavist. COMPARISON STUDY: No previous studies for comparison. OBSERVATIONS: The vertebral bodies and posterior elements appear intact. There is no abnormal bony signal present to suggest a marrow replacement process. L1-2: There is a broad-based central disc protrusion with mild to moderate spinal stenosis. There is mild left-sided foraminal narrowing. L2-3: There is a circumferential disc bulge with mild to moderate spinal stenosis. There is mild left-sided foraminal narrowing. L3-4: There is a broad-based central disc protrusion with moderate spinal stenosis. There is moderate right-sided foraminal narrowing and mild left-sided foraminal narrowing L4-5: There is a broad-based central disc protrusion. There is minimal spinal canal narrowing. There is no cystic or foraminal stenosis L5-S1: There is a broad-based central disc protrusion. There is no significant spinal stenosis. There is advanced facet joint arthropathy. There is a possible spondylolysis. There is severe bilateral foraminal narrowing. There is a single enhancing right-sided nerve root within the cauda equina. IMPRESSION: 1. No evidence of metastatic disease within the lumbar spine 2. Advanced multilevel spondylytic changes with multilevel spinal stenosis most severe at the L3-4 level. 3. Multilevel foraminal narrowing, most severe at the L5-S1 level bilaterally Electronically signed by: Elmo Kim M.D. 02/12/2019 2:32 PM Dictated: 02/12/19 1423 Transcribed: 02/12/19 1428 02/12/19 08:06 MR thoracic spine wo/w con Stat HISTORY: 78 years-old Male ro cord compression hx t8 lesion adenocarcinoma acute abdominal pain with progressive metastatic disease. Enlarging peritoneal implants with hepatic metastasis described on CT abdomen and pelvis study of same day. Destructive lytic lesion of the T8 vertebral body, previously biopsied. COMPARISON: CTA of the chest 02/12/2019, chest CT 12/03/2018 TECHNIQUE: Multiplanar multisequence MRI of the thoracic spine was obtained both with and without the use of 8.5 mL Gadavist FINDINGS: [employer] Ax Developer localizer images demonstrate no gross extraspinal abnormality. Destructive lytic lesion involving the T8 segment involves the posterior left vertebral body extending into the pedicle and bilateral lamina and left transverse process and posterior left eighth rib measuring 4.9 x 4.0 x 5.0 cm. There is decreased T1 signal with heterogeneously increased T2 signal and avid enhancement. The mass extends into the left neuroforamen at T7-T8 and T8-T9. Additionally, there is extension into the left anterior, posterior lateral epidural space. There is resultant moderate left-sided foraminal narrowing at T7-T8 and T8-T9 with severe left lateral recess narrowing at T7-T8. Moderate left lateral recess narrowing at T8-T9. Mild central canal stenosis at and T7-T8 and T8-T9. Mild adjacent soft tissue edema is likely reactive. There is acute pathologic fracture about the posterior left eighth rib as described on CT study of same day. There is mild edema and enhancement of the lower cervical and upper thoracic paraspinal musculature without corresponding lesion which is nonspecific. Signal within the thoracic spinal cord appears unremarkable. The study is mildly motion degraded. No additional suspicious lesions identified about the thoracic spine. Multilevel disc space narrowing with spondylitic spurring and posterior disc osteophyte complex formation noted about the cervical and thoracic spine and also at L1-L2. There is a least mild central canal stenosis at L1-L2. Renal cysts are redemonstrated. IMPRESSION: 1. Destructive lytic lesion of the T8 segment involving the left posterior aspect of the vertebral body extending into the left pedicle, bilateral lamina and left transverse process and posterior left eighth rib redemonstrated measuring up to 5.0 cm. This mass extends into the left neuroforamen at T7-T8 and T-T9 involving epidural space resulting in central canal and neuroforaminal narrowing as above. 2. Acute pathologic minimally displaced fracture of the posterior left eighth rib redemonstrated. 3. Mild nonspecific edema and enhancement involves the paraspinal musculature of the cervical thoracic junction. 4. No additional suspicious lesions identified to suggest osseous metastatic disease. 5. Degenerative changes as above. The above report was generated using voice recognition software. It may contain grammatical, syntax or spelling errors. Electronically signed by: Jovani Goldberg M.D. 02/12/2019 2:37 PM Hospital Course (1) Adenocarcinoma: Mr. Magallanes is an 78 yo male with metastatic adenocarcinoma of the colon to lung, liver and bone (L 8th rib and 8th thoracic vertebra) admitted for weakness and intractable back pain on 02/12/19. He was ultimately d/c on 02/15/19 to home hospice. Metastatic Adenocarcinoma Mr. Magallanes is status post low anterior resection of adenocarcinoma of colon (01/2018) and palliative radiation. Currently undergoing chemotherapy with Dr. Oakley ([facility]). His last treatment was 2 weeks prior to admission. On arrival he was neutropenic, and his ANC dropped as low as 2238 during his stay. He was, however, clinically well (afebrile with stable vitals) throughout his stay. Oncology was consulted and recommended holding off on further chemotherapy. With the help of the palliative care team, an extensive conversation on goals of care and code status was with patient and his ; ultimately, Mr. Magallanes requested his code status be changed to DNR/DNI. His goals are to enjoy time with his at home for as long as possible; thus he was discharge to home hospice on 02/15/91. (2) Atrial flutter: EKG day of discharge revealed flutter. Patient was on home dose of Meto prolol 50mg, bid, but this was held on admission given his relative hypotension. Metoprolol 25mg was added on day of discharge, which slowed his HR to 81bpm. Mr. Magallanes declined further evaluation and management of A-flutter, as he wished to be d/c to home hospice. (3) Intractable back pain: - MRI on admission demonstrated progression of metastatic disease to T8. His back pain was thought to be secondary to progressive metastatic disease vs. underlying spinal stenosis. Ortho-spine was consulted during his stay and recommended no surgical intervention. His pain was controlled with morphine and IV Dilaudid during this stay. He will have continued analgesic management with home hospice post discharge. (4) Pathologic rib fracture: -secondary to metastatic disease. pain control via home hospice (5) Asymptomatic bacteriuria: -Mr. Magallanes's Urine culture from 02/12 grew out enterococcus, >80,000 colonies. Repeat culture from 02/14 grew out enterococcus, >100,000 colonies. Given his immunosuppressed status, he was treated with a course of Macrobid (started in hospital, sent home with script). (6) Pulmonary emboli: Initially visualized on CTA 01/26/19. Repeat CTA from 02/12 showed segmental and subsegmental pulmonary emboli of the right upper and lower lobes without PE or right heart strain. He was continued on Xarelto. (7) COPD (chronic obstructive pulmonary disease): Mr. Magallanes satted well on room air throughout this hospital stay. -Continue home Spiriva and Symbicort -Albuterol PRN (8) GERD (gastroesophageal reflux disease): Chronic. Stable -Continue home Ranitidine (9) Hypertension: -BP 108/73 -continue home medications (10) Dyslipidemia: -given limited life span with metastatic cancer, patient's 10 year ASCVD risk is likely irrelevant -no history of CAD -discontinue home Simvastatin (11) CHF (congestive heart failure): Patient with elevated BNP on admission at 1917 Home dose of lasix was continued. (12) BPH (benign prostatic hyperplasia): -Continue Terazosin Total Time Total Time Spent Total Time Spent (In Minutes): see attending attestation Discharge Plan Discharge Items Patient Disposition: Hospice - Home Reason For Visit: WEAKNESS Discharge Diagnosis: Metastatic Adenocarcinoma of colon Condition on Discharge: Fair Activity: Resume your previous activity Non-emergency contact: Primary Care Provider and Oncologist Call non-emergency contact if: you have any medication questions and your pain is concerning for you Follow-up/Referrals: Indy Thorpe PA-C [Primary Care Provider] - Diet: Regular Addtl Attending Provider Instructions: You were admitted to [facility] 02/11/10 - 02/15/19 for weakness and back pain. You were evaluated and treated as below. You were discharged to home hospice. Metastatic Adenocarcinoma of Colon Progression of your cancer, in addition to the chemotherapy treatment you received two weeks ago, is the likely cause of your weakness. Oncology was consulted during your hospital stay and advised you to hold off on chemotherapy. Your white blood cell count was very low during your stay, likely because of the chemotherapy and existing cancer. Because your white blood cell count is very low, you are at a high risk of infection. After a long discussion among hospital care team and your , you elected to proceed with home hospice. Back Pain Your back pain was evaluated with a lumbar and thoracic spine MRI. The thoracic MRI showed metastasis of your colon cancer to the 8th rib on the left side and your 8th thoracic vertebra. An orthopedic surgeon evaluated you and did not feel surgery was indicated. The cause of your back pain may be from your underlying spinal stenosis or from the cancer. Your back pain was treated with Tylenol and the narcotic pain killers morphine and dilaudid. You stated that you had over 200 tablets of morphine already at home, [facility] You may use the morphine tablets you have at home to treat your current back pain as needed. Infected Urine Your urine culture grew a bacteria during your hospital stay. We gave you one dose of an antibiotic before discharge. A prescription for the rest of the antibiotic dose was provided upon discharge. Please take 2 tablets of the Macrobid, daily for 5 days to ensure complete treatment of infection. Blood clots in the lung A cat scan of your chest confirmed the presence of multiple small blood clots in the lungs. You were already taking Xaraleto, a blood thinner, which is the treatment for these clots. Continue the Xaraleto, 5mg, twice daily. Atrial Flutter On 02/15/19, you developed a fast, irregular heart beat known as "atrial flutter." Your home dose of metoprolol was given and your heart rate slowed. After careful discussion, you declined further investigation of your atrial flutter and requested to be discharged home, as planned to hospice care. Pending Studies at Discharge: No Stand-Alone Forms: My [facility] Medications and DC Order Prescriptions: New nitrofurantoin monohyd/m-cryst [Macrobid] 100 mg capsule 100 mg PO BID 5 Days Qty: 10 RF: 0 Continued potassium chloride [Klor-Con M20] 20 mEq tablet,ER particles/crystals 20 meq PO BID RF: 0 ranitidine HCl 150 mg Tablet 150 mg PO QAM RF: 0 terazosin 10 mg Capsule 10 mg PO HS RF: 0 loratadine 10 mg Tablet 10 mg PO QAM RF: 0 Spiriva with HandiHaler 18 mcg Capsule, W/Inhalation Device 18 mcg Inhalation QAM Qty: 1 RF: 0 furosemide [Lasix] 40 mg tablet 40 mg PO BID RF: 0 Symbicort 160-4.5 mcg/actuation HFA aerosol inhaler 2 puff Inhalation DIRECTED PRN (Reason: Shortness Of Breath) RF: 0 latanoprost 0.005 % drops 1 drp ophthalmic (eye) DAILY RF: 0 amlodipine 5 mg Tablet 5 mg PO DAILY RF: 0 prochlorperazine maleate 10 mg Tablet 10 mg PO TID PRN (Reason: Nausea) RF: 0 aspirin [Aspirin Low Dose] 81 mg Tablet,Delayed Release (Dr/Ec) 81 mg PO DAILY RF: 0 ondansetron 8 mg Tablet,Disintegrating 8 mg PO Q12H RF: 0 folic acid 1 mg Tablet 1 mg PO DAILY RF: 0 ferrous sulfate 324 mg (65 mg iron) Tablet,Delayed Release (Dr/Ec) 324 mg PO BID RF: 0 rivaroxaban 20 mg Tablet 20 mg PO DAILY RF: 0 morphine 15 mg Tablet 15 mg PO TID PRN (Reason: Pain) RF: 0 metoprolol tartrate 50 mg tablet 25 mg PO BID RF: 0 lisinopril 5 mg Tablet 2.5 mg PO QAM RF: 0 Discontinued simvastatin 40 mg Tablet 20 mg PO HS RF: 0 Discharge Orders: Discharge Order (Routine); Ordered 02/15/19 Ordered By: Shyanne Davila Admission Data Admit Date/Time: 02/12/19 16:48 Attending Provider: Mukesh Fang Admit Provider: Leonora Dee Primary Care Provider: Indy Thorpe Other Providers: Leonora Dee ; Kang Oakley ; Alfredo Haque ; Hospice,Family ; Corina Rosario Other Interventions: Discharge Summary Assessment (RN) Last Done: 02/15/19 15:12 DC Date/Time DO NOT enter until pt leaves facility: 02/15/19 16:40 Supervising Physician Co-Signing Physician Notes Attending attestation Pt seen and examined in concert with Dr. Davila. In agreement with the documented findings as noted in the resident documentation with any exceptions or additions as noted here. At bedside, patient feels generally weak, though improved from previous. Pain is better controlled on APAP and PRN morphine. On examination, S1/S2 nl IRR/IRR and tachy, no MCG. CTAB. Abd NT/ND BS+ve Atrial flutter with likely 2:1 block - asymptomatic and resolved with home metoprolol. After discussion of pros/cons and in light of goals of care (hospice), patient elects to return home without any further eval or treatment. Metastatic adenocarcinoma w/ intractable pain, pathologic rib fracture - tolerating morphine with home dosing well over OTC APAP. Counseled and encouraged home morphine use. Asymptomatic bacturia - discharge to complete course of macrobid for +ve culture Pulmonary emboli, history - continue Xarelto on discharge Else see resident documentation as noted. Resident Activity Tracking Resident Involvement: Resident Care Provided Care Provided: Adult Hospital Medicine
== END 2019-02-15 16:40 | disposition hospice, home (50) | DRG 374 ==
LOC: ED 07:44 → 4W 16:48 → SUATTDRO 16:48 → 4W 18:00
DX: Z88.2 Allergy status to sulfonamides; M54.9 Dorsalgia, unspecified; K21.9 Gastro-esophageal reflux disease without esophagitis; J44.9 Chronic obstructive pulmonary disease, unspecified; M84.48XA Pathological fracture, other site, initial encounter for fracture; E78.5 Hyperlipidemia, unspecified; C78.00 Secondary malignant neoplasm of unspecified lung; Z51.5 Encounter for palliative care; I26.99 Other pulmonary embolism without acute cor pulmonale; I50.9 Heart failure, unspecified; C18.9 Malignant neoplasm of colon, unspecified; I11.0 Hypertensive heart disease with heart failure; N40.0 Benign prostatic hyperplasia without lower urinary tract symptoms; C78.7 Secondary malignant neoplasm of liver and intrahepatic bile duct; Z88.8 Allergy status to other drugs, medicaments and biological substances; J18.9 Pneumonia, unspecified organism; C79.51 Secondary malignant neoplasm of bone; Z88.1 Allergy status to other antibiotic agents

== ENCOUNTER 2019-04-24 22:40 | Inpatient (IN) ==
[2019-04-24 23:40] LABS: Basophils # (auto) 0.01 K/uL (0-0.2); Basophils % (auto) 0.1 %; Eosinophils # (auto) 0.05 K/uL (0-0.5); Eosinophils % (auto) 0.6 %; Hematocrit (blood only) 36.8 % (42-52); Hemoglobin 11.5 g/dL (14.0-18.0); Immature Granulocytes # (auto) 0.01 K/uL (0.00-0.02); Immature Granulocytes % (auto) 0.1 %; Lymphocytes # (auto) 1.07 K/uL (1.2-3.4); Lymphocytes % (auto) 13.5 %; Mean Corpuscular Hemoglobin 27.4 pg (25-34); Mean Corpuscular Hgb Conc 31.3 g/dL (32-36); Mean Corpuscular Volume 87.8 fL (80-100); Mean Platelet Volume 9.9 fL (7.4-10.4); Monocytes # (auto) 0.35 K/uL (0.11-0.59); Monocytes % (auto) 4.4 %; Neutrophils # (auto) 6.42 K/uL (1.4-6.5); Neutrophils % (auto) 81.3 %; Platelet Count 214 K/uL (130-400); RDW Coefficient of Variation 15.1 % (11.5-14.5); RDW Standard Deviation 48.6 fL (36.4-46.3); Red Blood Count 4.19 M/uL (4.7-6.1); White Blood Count 7.91 K/uL (4.8-10.8)
[2019-04-24 23:49] LABS: INR 1.5 (0.9-1.1); Prothrombin Time 14.6 Seconds (9.0-12.0)
[2019-04-25] LABS: Albumin Level 2.8 gm/dl (3.4-5.0); Calcium 8.4 mg/dl (8.5-10.1); Creatinine Clr Calc Pharmacy 58.5 ml/min; Est GFR (African American) 86.2; Est GFR (Non-African American) 74.4; Magnesium 2.2 mg/dl (1.8-2.4); Potassium 3.5 mmol/L (3.5-5.1)
[2019-04-25 00:11] LABS: Albumin Globulin Ratio 0.7 (0.9-2); Bilirubin,Total 0.9 mg/dl (0.2-1); Thyroid Stimulating Hormone 1.94 uIu/ml (0.300-4.500); Total Protein 6.8 gm/dl (6.4-8.2); Troponin I 0.018 ng/ml (0-0.045)
[2019-04-25 00:41] LABS: Appearance Urine Clear (Clear); Bacteria Urine Automated 1+ (Negative); Bilirubin Urine Negative (Negative); Blood Urine Trace (Negative); Color Urine Yellow; Glucose Urine UA Negative (Negative); Ketones Urine Negative (Negative); Leukocyte Esterase Urine 1+ (Negative); Nitrite Urine Negative (Negative); Protein Urine Negative (Negative); RBC Urine Automated 0-4 /hpf (0-4); Specific Gravity Urine 1.011 (1.000-1.030); Urobilinogen Urine Negative (Negative); pH Urine 5.5 (4.5-7.5)
[2019-04-25] MEDS ORDERED: cefTRIAXone SODIUM 2,000 MG/70 ML BAG IV STA (00:49)
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
[2019-04-25] MEDS ORDERED: NITROFURANTOIN MONOHYDRATE 100 MG CAP PO STA (01:01)
[2019-04-25] MEDS ORDERED: SODIUM CHLORIDE 0.9% 1000ML 500 ML IV ONE (01:18)
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
[2019-04-25] MEDS ORDERED: ALUMINUM/MAGNESIUM SUSP 30 ML UDC PO PRN (03:22)
[2019-04-25] MEDS ORDERED: ONDANSETRON 8MG OD TAB PO PRN (03:22)
[2019-04-25] MEDS ORDERED: POLYETHYLENE (MIRALAX) 17 GM PACK PO PRN (03:22)
[2019-04-25] MEDS ORDERED: PROCHLORPERAZINE MALEATE 10 MG TAB PO PRN (03:22)
[2019-04-25] MEDS ORDERED: MAGNESIUM HYDROXIDE SUSP 30 ML UDC PO PRN (03:22)
[2019-04-25] MEDS ORDERED: BUDESONIDE/FORMOTEROL FUMARATE 160/4.5 60 PUFFS/INHALER INH PRN (03:22)
--- NOTE | 2019-04-25 04:27 | Billing Data ---
Date of Service April 25, 2019 Coding Level of Care Code 14553 Initial Inpt Care Lvl 3
--- NOTE | 2019-04-25 07:05 | CT Scan Report ---
HEAD CT NONCONTRAST CT DOSE: 934.28 mGy.cm HISTORY: hallucinations, h/o of colon CA, on xarelto TECHNIQUE: Multiaxial CT images of the head were performed without the use of intravenous contrast. A utomated exposure control was utilized for this study. A dose lowering technique was utilized adheri ng to the principles of ALARA. Comparison: None. Findings: The paranasal sinuses and mastoid air cells are clear. The calvarium and skull base are int act. There is no mass, hematoma, midline shift, acute infarct. White matter hypodensity is nonspecifi c but suggestive of microvascular ischemic change. The ventricles and sulci demonstrate mild age-rela sahara involutional changes. Impression: No acute intracranial abnormality. Atrophy and microvascular ischemic changes. ACT 112: Negative or not required by law. Electronically signed by: Peter Webber M.D. 04/25/2019 7:04 AM
--- NOTE | 2019-04-25 07:17 | XRay Report ---
XR chest 1V portable HISTORY: weakness; h/o mets COMPARISON: Chest 02/12/2019. FINDINGS: No pneumothorax. No pleural effusions. The heart remains enlarged. There is mild central pu lmonary gastric congestion without overt edema. This has slightly progressed. Left jugular Port-A-Cat h terminates at the SVC. The patient's known pulmonary nodules are better appreciated on the prior CT examination. IMPRESSION: Stable cardiomegaly with slight progression of the pulmonary vascular congestion. ACT 112: Negative or not required by law. Electronically signed by: Peter Webber M.D. 04/25/2019 7:16 AM
[2019-04-25] MEDS: NITROFURANTOIN MONOHYDRATE 100 MG CAP PO SCH ×2 (08:36→20:37)
[2019-04-25] MEDS: POTASSIUM CHLORIDE 20 MEQ TABCR PO SCH ×2 (08:36→17:25)
[2019-04-25] MEDS: FAMOTIDINE 10 MG TABLET PO SCH (08:37)
[2019-04-25] MEDS: METOPROLOL TARTRATE 25 MG TAB PO SCH ×2 (08:37→20:39)
[2019-04-25] MEDS: FOLIC ACID 1 MG TAB PO SCH (08:37)
[2019-04-25] MEDS: ASPIRIN 81 MG ECTAB PO SCH (08:37)
[2019-04-25] MEDS: TIOTROPIUM BROMIDE 5 PUFF/90 MCG INH INH SCH (08:38)
[2019-04-25] MEDS: RIVAROXABAN 20 MG TAB PO SCH (08:38)
[2019-04-25] MEDS: MoRPHine SULFATE IR 15 MG TAB (IMMEDIATE RELEASE) PO SCH ×3 (08:40→20:36)
--- NOTE | 2019-04-25 10:30 | Hospitalist Progress Note ---
Date of Service April 25, 2019 Assessment & Plan (1) Altered mental status: mR. Magallanes is an 78yo M with a PMHx of metastatic colon cancer with mets to bone s/p resection and palliative chemo/radiation no longer pursuing treatment and on hopsice, PE, CHF< COPD, and a flutter who presented with AMS, AH/VH, and a fall. 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 Given resistance patterns/allergies tx with empiric macrobid at this time Metastatic Colon Adenocarcinoma s/p resection and palliative - On hospice, comfort goals. - Hx pathologic rib fxr 2/2 bone mets - Continue pain control as above, minimize narcotics if possible given AMS - (2) Dehydration: (3) Hallucinations, visual: (4) Cancer related pain: (5) Asymptomatic bacteriuria: (6) CHF (congestive heart failure): (7) GERD (gastroesophageal reflux disease): (8) COPD (chronic obstructive pulmonary disease): (9) Pulmonary emboli: (10) Adenocarcinoma: (11) Colon cancer metastasized to bone: (12) Pathologic rib fracture: (13) Intractable back pain: (14) Hypertension: (15) Dyslipidemia: (16) BPH (benign prostatic hyperplasia): Results & Data Vital Signs (Past 12 Hours) Vital Signs Temp Pulse Pulse Resp BP BP Pulse Ox 04/25/19 08:29 36.7 C 86 18 134/70 98 04/25/19 03:10 37.0 C 78 16 112/62 97 04/25/19 02:35 95 H 22 143/94 H 96 04/25/19 00:55 75 18 100/71 100 04/24/19 22:47 37.1 C 73 73 12 105/64 105/64 94 (1) GERD (gastroesophageal reflux disease) Esophagitis presence: esophagitis presence not specified Qualified Code(s): K21.9 - Gastro-esophageal reflux disease without esophagitis (2) COPD (chronic obstructive pulmonary disease) COPD type: unspecified COPD Qualified Code(s): J44.9 - Chronic obstructive pulmonary disease, unspecified (3) Pulmonary emboli Pulmonary embolism type: multiple subsegmental (without acute cor pulmonale) Qualified Code(s): I26.94 - Multiple subsegmental pulmonary emboli without acute cor pulmonale (4) Pathologic rib fracture Encounter type: initial encounter Qualified Code(s): M84.48XA - Pathological fracture, other site, initial encounter for fracture (5) Hypertension Hypertension type: essential hypertension Qualified Code(s): I10 - Essential (primary) hypertension (6) BPH (benign prostatic hyperplasia) Lower urinary tract symptom presence: symptoms absent Qualified Code(s): N40.0 - Benign prostatic hyperplasia without lower urinary tract symptoms
--- NOTE | 2019-04-25 12:13 | Medical Student Progress Note ---
Date of Service April 25, 2019 Assessment & Plan (1) Altered mental status: Mr. 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 ED course: 2 g IV Rocephin, 100 mg p.o. Macrobid, 500 mL normal saline bolus Mental status change with Visual and auditory hallucination -CT brain without acute findings -Has A flutter, but embolic stroke unlikely as he has been on rivaroxaban - reports pt was taking morphine 30mg TID instead of BID the last 2-3 days. In the days prior patient was managing his own meds and likely was taking more for increased pain. -Presentation suggestive of delirium from increased narcotic use and/or possible UTI -Will give morphine sulfate 15mg PO TID for pain mgmnt -Patient on hospice and will need to discuss goals of care with family to guide further work-up, including MRI Urinary tract infection -UA positive for trace blood, leukocyte esterase, white blood cell, epithelial cells and bacteria -Urine sent for culture -Prior urine cultures grew Enterococcus faecalis. Treatment limited by resistance and pt allergy to penicillins. Completed course of Macrobid. -Patient is afebrile, with a normal white cell count, and no urinary symptoms. -Treat empirically with Macrobid 100mg BID Falls -multiple recent falls -likely multiple contributing factors including narcotic pain meds, bone mets, and weakness -discuss safety at home with patient's -consider lowering narcotic pain meds to improve MS if tolerated Metastatic colon adenocarcinoma -Status post low anterior resection in 01/2018 and palliative radiation & chemotherapy -No longer undergoing treatment -Was discharged home from prior hospital stay with home hospice on 02/15/2019 -Continue home pain regimen Constipation - KUB pending to assess for constipation, given distended abdomen and chronic opioid use -Continue current bowel regimen. Per patient's has been working well Atrial flutter -Diagnosed during hospital admission from 02/12/2019 -02/15/2019 -Mr. Magallanes declined further evaluation and management of atrial flutter, as he wished to be discharged to home hospice at the time -Continue home metoprolol Chronic systolic CHF -Echo in 01/24 shows mildly reduced left ventricular systolic function, with an EF of 45-50%, mild global hypokinesis of left ventricle, and grade 1 diastolic dysfunction -Lasix held at admission because patient appeared dry -Resume Lasix Pulmonary emboli -Continue home Xarelto COPD -No signs or symptoms of COPD exacerbation -Continue home inhalers GERD -Change from Zantac to Pepcid Hypertension -Hold home amlodipine, lisinopril, and terazosin given hypotension -Resume when able BPH -Terazosin held as above Goals of care -In hospice -Admitted for AMS change and confusion for evaluation of immediate cause -Goal inline with hospice DVT prophylaxis: rivaroxaban Code: DNR/DNI Dispo: Coordinate with hospice for d/c planning Present on Admission?: Yes (2) Complicated urinary tract infection: Present on Admission?: Yes (3) Auditory hallucination: Present on Admission?: Yes (4) Hallucinations, visual: Present on Admission?: Yes (5) Dehydration: Present on Admission?: Yes (6) Atrial flutter: Present on Admission?: Yes (7) Cancer related pain: Present on Admission?: Yes (8) Goals of care, counseling/discussion: Present on Admission?: Yes (9) CHF (congestive heart failure): Present on Admission?: Yes (10) Dyslipidemia: Present on Admission?: Yes (11) Hypertension: Hypertension type: essential hypertension Qualified Code(s): I10 - Essential (primary) hypertension Present on Admission?: Yes (12) GERD (gastroesophageal reflux disease): Esophagitis presence: esophagitis presence not specified Qualified Code(s): K21.9 - Gastro-esophageal reflux disease without esophagitis Present on Admission?: Yes (13) COPD (chronic obstructive pulmonary disease): COPD type: unspecified COPD Qualified Code(s): J44.9 - Chronic obstructive pulmonary disease, unspecified Present on Admission?: Yes (14) Pathologic rib fracture: Encounter type: initial encounter Qualified Code(s): M84.48XA - Pathological fracture, other site, initial encounter for fracture Present on Admission?: Yes (15) Asymptomatic bacteriuria: Present on Admission?: Yes (16) BPH (benign prostatic hyperplasia): Lower urinary tract symptom presence: symptoms absent Qualified Code(s): N40.0 - Benign prostatic hyperplasia without lower urinary tract symptoms Present on Admission?: Yes (17) Colon cancer metastasized to bone: Present on Admission?: Yes (18) Adenocarcinoma: Present on Admission?: Yes (19) Pulmonary emboli: Pulmonary embolism type: multiple subsegmental (without acute cor pulmonale) Qualified Code(s): I26.94 - Multiple subsegmental pulmonary emboli without acute cor pulmonale Present on Admission?: Yes (20) Intractable back pain: Present on Admission?: Yes Supervising Attestation Medical student Supervision Note: I independently interviewed and examined the patient and verified the rodriguez history and physical, reviewed labs and image studies, discussed the case with Dee Dee Shannon and agree with the findings and care plan. Subjective Per patient's , he has recently been experiencing more pain and had been ta omega 30mg morphine TID over the past 2-3. In the days prior he was self managing his own medications. believes he was taking more pain meds. Today, patient is somnolent and is unable to provide a good history. Patient reports that "something is not right" but is unable to clarify further. Endorses intermittent left foot pain and intermittent left sternal/flank pain. Denies past or present visual/ auditory hallucinations. Denies headache and change in vision (but will not/cannot open eyes). Denies abdominal pain and SOB. Review of Systems Review of Systems: ROS limited by patient's level of consciousness General: endorses intermittent aching left foot pain; endorses feeling tired HEENT: denies headache; denies changes in vision although patient will not open his eyes Cardio: denies crushing chest pain or arm numbness, but does endorse intermittent non specific sternal and L flank pain Pulm: denies SOB MSK: endorses intermittent aching left foot pain; endorses intermittent non specific sternal and L flank pain Neuro: denies headache; denies change in vision (but will not open eyes) Psych: denies AH/VH Physical Exam Physical Exam: Constitutional: very somnolent, but in no acute distress HEENT: atraumatic; conjunctivae normal; anicteric sclera; Respiratory: lungs clear to auscultation, no wheezes, rales, rhonchi Cardio: Irregular heart beats; mild pedal edema GI: abdomen is distended; normal active bowel sounds; non-tender to palpation Neuro: difficult to asses bc of patient's level of somnolence. Follows only some commands. Pupils appear equal but small and sluggishly reactive. tongue appears midline, but difficult to assess as patient uncooperative; Unable or unwilling to open eyes; face symmetrically sensitive to touch Psych: oriented to person, place, but not time (asks where all the time has gone) Results & Data Vital Signs (Past 12 Hours) Vital Signs Temp Pulse Resp BP Pulse Ox 04/25/19 08:29 36.7 C 86 18 134/70 98 04/25/19 03:10 37.0 C 78 16 112/62 97 04/25/19 02:35 95 H 22 143/94 H 96 04/25/19 00:55 75 18 100/71 100
--- NOTE | 2019-04-25 13:21 | XRay Report ---
KUB HISTORY: Abdominal distention. COMPARISON: Abdomen and pelvis CT 02/12/2019. KUB 02/05/2018. FINDINGS: Moderate stool within the proximal colon. A few nondilated gas-filled loops of large or sma ll bowel seen throughout the abdomen. No evidence for bowel obstruction. Dense ostial calcifications are again noted. Multiple pelvic phleboliths. The heart is mildly enlarged. No renal calculi. No ure teral calculi. No pneumoperitoneum or pneumatosis. IMPRESSION: 1. Moderate stool within the colon. 2. No evidence for bowel obstruction. ACT 112: Negative or not required by law. Electronically signed by: Peter Webber M.D. 04/25/2019 1:19 PM
[2019-04-25] MEDS: LATANOPROST 0.005% OP SOLN 2.5 ML BTL OP SCH (20:40)
[2019-04-25] MEDS ORDERED: HEPARIN 100 UNIT/ML 5ML FLUSH FLUSH PRN (22:50)
[2019-04-26] MEDS ORDERED: MoRPHine SULFATE 2 MG/ML CARP IV STA (02:19)
[2019-04-26] MEDS ORDERED: MoRPHine SULFATE 2 MG/ML CARP ONE (02:26)
[2019-04-26] MEDS: ACETAMINOPHEN 325 MG TAB PO PRN ×2 (02:28→21:03)
[2019-04-26 08:52] LABS: Basophils # (auto) 0.02 K/uL (0-0.2); Basophils % (auto) 0.3 %; Eosinophils % (auto) 2.8 %; Hematocrit (blood only) 36.5 % (42-52); Hemoglobin 11.4 g/dL (14.0-18.0); Immature Granulocytes # (auto) 0.01 K/uL (0.00-0.02); Immature Granulocytes % (auto) 0.1 %; Lymphocytes # (auto) 0.88 K/uL (1.2-3.4); Lymphocytes % (auto) 12.5 %; Mean Corpuscular Hemoglobin 27.8 pg (25-34); Mean Corpuscular Hgb Conc 31.2 g/dL (32-36); Monocytes # (auto) 0.95 K/uL (0.11-0.59); Monocytes % (auto) 13.5 %; Neutrophils # (auto) 4.96 K/uL (1.4-6.5); Neutrophils % (auto) 70.8 %; Platelet Count 210 K/uL (130-400); RDW Coefficient of Variation 15.3 % (11.5-14.5); RDW Standard Deviation 49.5 fL (36.4-46.3); White Blood Count 7.02 K/uL (4.8-10.8)
[2019-04-26 09:14] LABS: BUN Creatinine Ratio 18.8 (10-20); Calcium 8.7 mg/dl (8.5-10.1); Creatinine Clr Calc Pharmacy 75.3 ml/min; Est GFR (Non-African American) 87.1; Potassium 3.7 mmol/L (3.5-5.1)
[2019-04-26] MEDS: ASPIRIN 81 MG ECTAB PO SCH (10:10)
[2019-04-26] MEDS: MoRPHine SULFATE IR 15 MG TAB (IMMEDIATE RELEASE) PO SCH ×3 (10:10→20:07)
[2019-04-26] MEDS: METOPROLOL TARTRATE 25 MG TAB PO SCH ×2 (10:11→20:07)
[2019-04-26] MEDS: FOLIC ACID 1 MG TAB PO SCH (10:11)
[2019-04-26] MEDS: NITROFURANTOIN MONOHYDRATE 100 MG CAP PO SCH ×2 (10:11→20:06)
[2019-04-26] MEDS: POTASSIUM CHLORIDE 20 MEQ TABCR PO SCH ×2 (10:11→17:04)
[2019-04-26] MEDS: TIOTROPIUM BROMIDE 5 PUFF/90 MCG INH INH SCH (10:12)
[2019-04-26] MEDS: FAMOTIDINE 10 MG TABLET PO SCH (10:12)
[2019-04-26] MEDS: RIVAROXABAN 20 MG TAB PO SCH (10:13)
--- NOTE | 2019-04-26 14:09 | Medical Student Progress Note ---
Date of Service April 26, 2019 Assessment & Plan (1) Altered mental status: Mr. 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 ED course: 2 g IV Rocephin, 100 mg p.o. Macrobid, 500 mL normal saline bolus Toxic/metabolic encephalopathy with visual and auditory hallucination -CT brain without acute findings -Has A flutter, but embolic stroke unlikely as he has been on rivaroxaban - reports pt was taking morphine 30mg TID instead of BID the last 2-3 days. In the days prior patient was managing his own meds and likely was taking more for increased pain. -Presentation suggestive of delirium from increased narcotic use and/or possible UTI, as well as possibility of underlying depression with psychotic features -More alert on Decreased morphine sulfate of 15mg PO TID for pain mgmnt -Spoke with Hospice, discussions with family regarding goals of care and pain treatment moving forward. -May need respite care in the setting of increased weakness, PT/OT ordered -Consult with to get more AH/VH history -Consider addition of a low dose antipsychotic-- PMH of "hallucinations and insomnia" on seroquel. -Educate patient on tradeoff between increased narcotic for pain control and mental status -Much improved today in terms of orientation, alertness, and insight Urinary tract infection -UA positive for trace blood, leukocyte esterase, white blood cell, epithelial cells and bacteria -Urine sent for culture -Prior urine cultures grew Enterococcus faecalis. Treatment limited by resistance and pt allergy to penicillins. Completed course of Macrobid. -Patient is afebrile, with a normal white cell count, and no urinary symptoms, except for mild suprapubic discomfort. -Treat empirically with Macrobid 100mg BID Falls -multiple recent falls -likely multiple contributing factors including narcotic pain meds, bone mets, and weakness -discuss safety at home with patient's - PT/OT ordered, per and hospice, family is looking into respite care -consider lowering narcotic pain meds to improve MS if tolerated Metastatic colon adenocarcinoma -Status post low anterior resection in 01/2018 and palliative radiation & chemotherapy -No longer undergoing treatment -Was discharged home from prior hospital stay with home hospice on 02/15/2019 -Continue home pain regimen Constipation - KUB shows no bowel obstruction and moderate stool prior to his BM this morning -Continue current bowel regimen. Per patient's has been working well Atrial flutter -Diagnosed during hospital admission from 02/12/2019 -02/15/2019 -Mr. Magallanes declined further evaluation and management of atrial flutter, as he wished to be discharged to home hospice at the time -Continue home metoprolol Chronic systolic CHF -Echo in 01/24 shows mildly reduced left ventricular systolic function, with an EF of 45-50%, mild global hypokinesis of left ventricle, and grade 1 diastolic dysfunction -Lasix held at admission because patient appeared dry -Resume Lasix Hx of Pulmonary emboli -Continue home Xarelto COPD -No signs or symptoms of COPD exacerbation -Continue home inhalers GERD -Change from Zantac to Pepcid Hypertension -Hold home amlodipine, lisinopril, and terazosin given hypotension -Resume when able BPH -Terazosin held as above Goals of care -In hospice -Admitted for AMS change and confusion for evaluation of immediate cause -Goal inline with hospice DVT prophylaxis: rivaroxaban Code: DNR/DNI Dispo: Coordinate with hospice for d/c planning Present on Admission?: Yes (2) Complicated urinary tract infection: Present on Admission?: Yes (3) Auditory hallucination: Present on Admission?: Yes (4) Hallucinations, visual: Present on Admission?: Yes (5) Dehydration: Present on Admission?: Yes (6) Atrial flutter: Present on Admission?: Yes (7) Cancer related pain: Present on Admission?: Yes (8) Goals of care, counseling/discussion: Present on Admission?: Yes (9) Asymptomatic bacteriuria: Present on Admission?: Yes (10) BPH (benign prostatic hyperplasia): Lower urinary tract symptom presence: symptoms absent Qualified C ode(s): N40.0 - Benign prostatic hyperplasia without lower urinary tract symptoms Present on Admission?: Yes (11) Dyslipidemia: Present on Admission?: Yes (12) Hypertension: Hypertension type: essential hypertension Qualified Code(s): I10 - Essential (primary) hypertension Present on Admission?: Yes (13) CHF (congestive heart failure): Present on Admission?: Yes (14) COPD (chronic obstructive pulmonary disease): COPD type: unspecified COPD Qualified Code(s): J44.9 - Chronic obstructive pulmonary disease, unspecified Present on Admission?: Yes (15) GERD (gastroesophageal reflux disease): Esophagitis presence: esophagitis presence not specified Qualified Code(s): K21.9 - Gastro-esophageal reflux disease without esophagitis Present on Admission?: Yes (16) Pathologic rib fracture: Encounter type: initial encounter Qualified Code(s): M84.48XA - Pathological fracture, other site, initial encounter for fracture Present on Admission?: Yes (17) Intractable back pain: Present on Admission?: Yes (18) Pulmonary emboli: Pulmonary embolism type: multiple subsegmental (without acute cor pulmonale) Qualified Code(s): I26.94 - Multiple subsegmental pulmonary emboli without acute cor pulmonale Present on Admission?: Yes (19) Adenocarcinoma: Present on Admission?: Yes (20) Colon cancer metastasized to bone: Present on Admission?: Yes Supervising Attestation Medical student Supervision Note: I independently interviewed and examined the patient and verified the rodirguez history and physical, reviewed labs and image studies, discussed the case with Dee Dee Shannon and agree with the findings and care plan. Subjective Patient describes having auditory and visual hallucinations at the time of admission. He recalls children taking pictures of him and seeing a man strapped to a bed being tortured, as well as people talking to him. Voices do not offer commands. He reports that these hallucinations are very frightening and upsetting to him. He reports that during the hallucinations he is unsure if they are real or not, but afterwards he is able to decipher that they are not real. He says he asks his for input if he is unsure of a hallucination. Patient denies having had visual or auditory hallucinations last night or today. He reports having a very restful night. Patient expresses significant sadness and regret about decisions he has made in his life. He endorses feeling alone. He cites his as a huge support, but reports feeling guilt and says "she deserved better". He says "hospice does a good job. I'm very happy with them." He expresses a desire to go home, but says he does not wanting to be a burden to his because "she is also not well". Patient endorses pain in his back and flanks bl. Pain is exacerbated by movement and inspiration. He reports a history of knee pain, but does not endorse it at this time. He endorses mild lower abdominal pain/ discomfort. He denies SOB, palpitations, headache, nausea/ vomiting. He reports that he had a soft BM this morning. Review of Systems Review of Systems: General: endorses "not feeling well", denies nausea/ vommiting HEENT: denies headache; denies changes in vision Cardio: denies crushing chest pain, denies palpitations Pulm: denies SOB Abd: Endorse mild suprapubic pain, endorses soft BM this morning; endorses flatus MSK: endorses significant back and bl flank pain exacerbated with movement and deep inspiration, denies knee pain at this time; denies foot pain, endorses inabillity to sit himself up in bed Neuro: denies headache; denies change in vision Psych: denies AH/VH; endorses feelings of sadness, guilt, regret, and feeling alone Physical Exam Physical Exam: Constitutional: no acute distress; markedly more alert and conversant than yesterday; oriented x3 HEENT: atraumatic; conjunctivae normal; anicteric sclera Respiratory: lungs clear to auscultation, no wheezes, rales, rhonchi Cardio: Irregular heart beats; +1 pitting edema to mid calf bl GI: abdomen is distended; normal active bowel sounds; globally tender to palpation, but particularly suprapubically Neuro: cranial nerves II-IV intact; sensation to touch intact in all upper and lower extremities Psych: tearful at times; good insight into root causes of his feelings of sadness and guilt; good insight into VH/AH; good judgement in terms of knowing to reach out to his for help during hallucinations; depressed mood; affect appropriate for stated mood; speech normal rate and volume; recent and remote memory grossly intact Results & Data Vital Signs (Past 12 Hours) Vital Signs Temp Pulse Resp BP Pulse Ox 04/26/19 07:36 36.5 C 77 18 143/88 H 98
[2019-04-26] MEDS: AMLODIPINE BESYLATE 5 MG TAB PO SCH (15:54)
[2019-04-26] MEDS: lisinopriL 5 MG TAB PO SCH (15:55)
[2019-04-26] MEDS: LATANOPROST 0.005% OP SOLN 2.5 ML BTL OP SCH (20:07)
[2019-04-26] MEDS: FUROSEMIDE 40 MG TAB PO SCH (20:07)
[2019-04-27 07:23] VITALS: BP 136/76; PULSE 80; TEMP 97.9; O2SAT 97
[2019-04-27] MEDS: MoRPHine SULFATE IR 15 MG TAB (IMMEDIATE RELEASE) PO SCH ×2 (07:54→13:25)
[2019-04-27] MEDS: POTASSIUM CHLORIDE 20 MEQ TABCR PO SCH (07:54)
[2019-04-27] MEDS: NITROFURANTOIN MONOHYDRATE 100 MG CAP PO SCH (07:54)
[2019-04-27] MEDS: FOLIC ACID 1 MG TAB PO SCH (07:54)
[2019-04-27] MEDS: ASPIRIN 81 MG ECTAB PO SCH (07:54)
[2019-04-27] MEDS: FAMOTIDINE 10 MG TABLET PO SCH (07:54)
[2019-04-27] MEDS: FUROSEMIDE 40 MG TAB PO SCH (07:54)
[2019-04-27] MEDS: TIOTROPIUM BROMIDE 5 PUFF/90 MCG INH INH SCH (07:55)
[2019-04-27] MEDS: AMLODIPINE BESYLATE 5 MG TAB PO SCH (07:55)
[2019-04-27] MEDS: lisinopriL 5 MG TAB PO SCH (07:55)
[2019-04-27] MEDS: RIVAROXABAN 20 MG TAB PO SCH (07:55)
[2019-04-27] MEDS: METOPROLOL TARTRATE 25 MG TAB PO SCH (07:55)
[2019-04-27] MEDS: ACETAMINOPHEN 325 MG TAB PO PRN (08:04)
[2019-04-27] MEDS ORDERED: GABAPENTIN 300 MG CAP PO SCH (11:00)
--- NOTE | 2019-04-27 13:28 | Discharge Summary ---
Date of Service April 27, 2019 Admission HPI Per Admitting Provider Mr. 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 History is limited secondary to the patient's fatigue, as he frequently falls back asleep between questions. Mr. Magallanes says he has had multiple falls at home. He also endorses hallucinations. He states that he sees little children taking photos of him, and notes that they are talking to him, but he is unable to make out what they are saying. He understands that they are not there, and notes that this is "strange." He states that he has pain all over, worst in his bilateral knees, as he has fallen on them previously. He denies any urinary symptoms, and is unsure when he moved his bowels last. He denies any fever or chills at home. Principal Diagnosis AMS, colon ca w/ mets Discharge Exam Constitutional WD/WN, vitals as above Eyes PERRL, conjunctivae normal, anicteric sclerae ENMT external ear and nose normal, oropharynx normal Respiratory normal respiratory effort, lungs clear to auscultation Cardiovascular RRR, no murmur, no edema Gastrointestinal (Abdomen) Percussion/Palpation: + abdomen tender Musculoskeletal tender ribs Skin no rashes, warm and dry Psychiatric A+Ox3, euthymic affect Lymphatic +1 LE edema Discharge Data Allergies Allergy/AdvReac Type Severity Reaction Status Date / Time Penicillins Allergy Unknown Unknown Verified 04/24/19 23:53 Sulfa (Sulfonamide Allergy Unknown Unknown Verified 04/24/19 23:53 Antibiotics) oxycodone AdvReac Severe N/V Verified 04/24/19 23:53 quetiapine AdvReac Unknown insomnia, Verified 04/24/19 23:53 nightmares, hallucinations ubidecarenone AdvReac Unknown blood in Verified 04/24/19 23:53 stool Consultations 04/25/19 01:13 ED Decision to Admit Stat 04/25/19 03:22 Consult Case Management - Discharge Planning Routine Ordered Studies 04/24/19 22:44 CT head/brain wo con Urgent Hospital Course (1) Altered mental status: Mr. 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 The following is the medical management during stay here: Toxic/metabolic encephalopathy with visual and auditory hallucination -CT brain without acute findings -Has A-flutter, but embolic stroke unlikely as he has been on rivaroxaban - reports pt was taking morphine 30mg TID instead of BID the last 2-3 days. In the days prior patient was managing his own meds and likely was taking more for increased pain. -Presentation suggestive of delirium from increased narcotic use and/or possible UTI, as well as possibility of underlying depression with psychotic features -More alert on Decreased morphine sulfate of 15mg PO TID for pain mgmnt. Will d/c on this dosage for pain management -Also will d/c on gabapentin for foot pain likely 2/2 to neuropathy. This will be titrated up to 300 mg qhs -Spoke with Hospice, discussions with family regarding goals of care and pain t reatment moving forward. -Educated patient on tradeoff between increased narcotic for pain control and mental status -No hallucinations in 3 days. Much improved on d/c in terms of orientation, alertness, and insight Urinary tract infection -Prior urine cultures grew Enterococcus faecalis. Treatment limited by resistance and pt allergy to penicillins. Completed course of Macrobid. -Patient is afebrile, with a normal white cell count, and no urinary symptoms, except for mild suprapubic discomfort. -Treat empirically with Macrobid 100mg BID, pt to cont for 5 additional days Falls -multiple recent falls -likely multiple contributing factors including narcotic pain meds, bone mets, and weakness -discuss safety at home with patient's Metastatic colon adenocarcinoma -Status post low anterior resection in 01/2018 and palliative radiation & chemotherapy -No longer undergoing treatment -Was discharged home from prior hospital stay with home hospice on 02/15/2019 -Continue home pain regimen Constipation - KUB shows no bowel obstruction and moderate stool prior to his BM this morning -Continue current bowel regimen. Per patient's has been working well Atrial flutter -Diagnosed during hospital admission from 02/12/2019 -02/15/2019 -Mr. Magallanes declined further evaluation and management of atrial flutter, as he wished to be discharged to home hospice at the time -Continue home metoprolol Chronic systolic CHF -Echo in 01/24 shows mildly reduced left ventricular systolic function, with an EF of 45-50%, mild global hypokinesis of left ventricle, and grade 1 diastolic dysfunction -Lasix held at admission because patient appeared dry -Resumed Lasix later Hx of Pulmonary emboli -Continue home Xarelto COPD -No signs or symptoms of COPD exacerbation -Continue home inhalers GERD -Change from Zantac to Pepcid Hypertension -Hold home amlodipine, lisinopril, and terazosin given hypotension. Will resume on d/c BPH -Terazosin held as above DVT prophylaxis: rivaroxaban. At time of d/c, pt had no other acute concerns or complaints. Arrangements for home hospice with [facility] made prior to d/c. Total Time Total Time Spent Total Time Spent (In Minutes): see attending attestation Discharge Plan Discharge Items Patient Disposition: Hospice - Home Reason For Visit: VISUAL AND AUDITORY HALLUCINATIONS, UTI Discharge Diagnosis: AMS, metastatic colon ca Activity: Per Instructions section Non-emergency contact: Primary Care Provider Call non-emergency contact if: you have any medication questions, your symptoms worsen and your pain is not controlled Follow-up/Referrals: Indy Thorpe PA-C [Primary Care Provider] - Diet: Regular Addtl Attending Provider Instructions: Mr. 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 The following is the medical management during stay here: Toxic/metabolic encephalopathy with visual and auditory hallucination -CT brain without acute findings -Has A-flutter, but embolic stroke unlikely as he has been on rivaroxaban - reports pt was taking morphine 30mg TID instead of BID the last 2-3 days. In the days prior patient was managing his own meds and likely was taking more for increased pain. -Presentation suggestive of delirium from increased narcotic use and/or possible UTI, as well as possibility of underlying depression with psychotic features -More alert on Decreased morphine sulfate of 15mg PO TID for pain mgmnt. Will d/c on this dosage for pain management -Also will d/c on gabapentin for foot pain likely 2/2 to neuropathy. This will be titrated up to 300 mg qhs -Spoke with Hospice, discussions with family regarding goals of care and pain treatment moving forward. -Consider addition of a low dose antipsychotic-- PMH of "hallucinations and insomnia" on seroquel. -Educated patient on tradeoff between increased narcotic for pain control and mental status -Much improved on d/c in terms of orientation, alertness, and insight Urinary tract infection -UA positive for trace blood, leukocyte esterase, white blood cell, epithelial cells and bacteria -Urine sent for culture -Prior urine cultures grew Enterococcus faecalis. Treatment limited by resistance and pt allergy to penicillins. Completed course of Macrobid. -Patient is afebrile, with a normal white cell count, and no urinary symptoms, except for mild suprapubic discomfort. -Treat empirically with Macrobid 100mg BID, pt to cont for 5 additional days Falls -multiple recent falls -likely multiple contributing factors including narcotic pain meds, bone mets, and weakness -discuss safety at home with patient's Metastatic colon adenocarcinoma -Status post low anterior resection in 01/2018 and palliative radiation & chemotherapy -No longer undergoing treatment -Was discharged home from prior hospital stay with home hospice on 02/15/2019 -Continue home pain regimen Constipation - KUB shows no bowel obstruction and moderate stool prior to his BM this morning -Continue current bowel regimen. Per patient's has been working well Atrial flutter -Diagnosed during hospital admission from 02/12/2019 -02/15/2019 -Mr. Magallanes declined further evaluation and management of atrial flutter, as he wished to be discharged to home hospice at the time -Continue home metoprolol Chronic systolic CHF -Echo in 01/24 shows mildly reduced left ventricular systolic function, with an EF of 45-50%, mild global hypokinesis of left ventricle, and grade 1 diastolic dysfunction -Lasix held at admission because patient appeared dry -Resumed Lasix Hx of Pulmonary emboli -Continue home Xarelto COPD -No signs or symptoms of COPD exacerbation -Continue home inhalers GERD -Change from Zantac to Pepcid Hypertension -Hold home amlodipine, lisinopril, and terazosin given hypotension. Will resume on d/c BPH -Terazosin held as above DVT prophylaxis: rivaroxaban. At time of d/c, pt had no other acute concerns or complaints. Pending Studies at Discharge: No Stand-Alone Forms: My [facility] Medications and DC Order Prescriptions: New pregabalin 300 mg capsule 300 mg PO HS Qty: 30 RF: 2 nitrofurantoin monohyd/m-cryst [Macrobid] 100 mg capsule 100 mg PO BID 5 Days Qty: 10 RF: 0 Continued potassium chloride [Klor-Con M20] 20 mEq tablet,ER particles/crystals 20 meq PO BID RF: 0 ranitidine HCl 150 mg Tablet 150 mg PO QAM RF: 0 terazosin 10 mg Capsule 10 mg PO HS RF: 0 loratadine 10 mg Tablet 10 mg PO QAM RF: 0 Spiriva with HandiHaler 18 mcg Capsule, W/Inhalation Device 18 mcg Inhalation QAM Qty: 1 RF: 0 furosemide [Lasix] 40 mg tablet 40 mg PO BID RF: 0 Symbicort 160-4.5 mcg/actuation HFA aerosol inhaler 2 puff Inhalation DIRECTED PRN (Reason: Shortness Of Breath) RF: 0 latanoprost 0.005 % drops 1 drp ophthalmic (eye) DAILY RF: 0 amlodipine 5 mg Tablet 5 mg PO DAILY RF: 0 prochlorperazine maleate 10 mg Tablet 10 mg PO TID PRN (Reason: Nausea) RF: 0 aspirin [Aspirin Low Dose] 81 mg Tablet,Delayed Release (Dr/Ec) 81 mg PO DAILY RF: 0 ondansetron 8 mg Tablet,Disintegrating 8 mg PO Q12H PRN (Reason: Nausea) RF: 0 folic acid 1 mg Tablet 1 mg PO DAILY RF: 0 ferrous sulfate 324 mg (65 mg iron) Tablet,Delayed Release (Dr/Ec) 324 mg PO BID RF: 0 rivaroxaban 20 mg Tablet 20 mg PO DAILY RF: 0 morphine 15 mg Tablet 15 mg PO TID RF: 0 metoprolol tartrate 25 mg tablet 25 mg PO BID RF: 0 lisinopril 5 mg Tablet 5 mg PO QAM RF: 0 Discharge Orders: Discharge Order (Routine); Ordered 04/27/19 Ordered By: Pacheco Marley Admission Data Admit Date/Time: 04/25/19 02:03 Attending Provider: Iveth Long Admit Provider: Oren Mcbride Primary Care Provider: Indy Thorpe Other Providers: Leonora Dee Other Interventions: Discharge Summary Assessment (RN) Last Done: 04/27/19 13:30 DC Date/Time DO NOT enter until pt leaves facility: 04/27/19 17:21 Supervising Physician Co-Signing Physician Notes Resident Physician Supervision Note: I independently interviewed and examined the patient and verified the rodriguez history and physical, reviewed labs and image studies, discussed the case with the resident Dr. Marley and agree with the findings and care plan. Time spent in discharge 35 min Resident Activity Tracking Resident Involvement: Resident Care Provided Care Provided: Adult Hospital Medicine
== END 2019-04-27 17:21 | disposition hospice, home (50) | DRG 92 ==
LOC: ED 22:40 → 4W 04-25 02:03 → SUATTDRO 04-25 02:03 → 4W 04-25 02:39